=== PATIENT | female | born 1935 | race Caucasian/White ===

== ENCOUNTER → 2016-06-16 | Outpatient (CLI) | payer MEDICARE, BC | LOC: MW.CHORTHO 08:00 | PROVIDERS: ATTEND Physician Assistant | DX: M75.42 Impingement syndrome of left shoulder (principal); M25.512 Pain in left shoulder | CPT/HCPCS: 20610; G0463; J1040 ==

== ENCOUNTER 2017-06-15 10:23 | Day surgery (SDC) | payer MEDICARE, BC ==
[~2017-06-15 10:23] MED LIST: Lactated Ringers 1,000 ML IV SCH; Lidocaine 2% 5 ML SDV ONE; Propofol 200 MG/20 ML SDV ONE; Sodium Chloride 0.9% 10 ML Syringe FLUSH PRN; Sodium Chloride 0.9% 2.5 ML Syringe FLUSH PRN
[2017-06-15] MEDS ORDERED: Scopolamine 1.5 MG Transdermal Patch TRDERM PRN ×2 (10:50→11:00)
[2017-06-15] MEDS ORDERED: Scopolamine 1.5 MG Transdermal Patch ONE (10:52)
--- NOTE | 2017-06-15 11:00 | PCM.PREANE ---
Preanesthetic Assessment - Anesthesia/Transfusion/Family Hx Anesthesia History: Prior Anesthesia Without Reaction Other Type of Anesthesia Reaction Comment: "hallucinations after last knee surgery" Family History of Anesthesia Reaction: No Transfusion History: Prior Transfusion Without Reaction Intubation History: Unknown - Review of Systems General: No Symptoms Pulmonary: No Symptoms Cardiovascular: No Symptoms Gastrointestinal: Abdominal Pain, Other (incontinance) Neurological: No Symptoms Other: Reports: None - Physical Assessment O2 Sat by Pulse Oximetry: 95 Respiratory Rate: 16 Vital Signs: Last Vital Signs Temp 36.6 C 06/15/17 10:39 Pulse 110 H 06/15/17 10:39 Resp 16 06/15/17 10:39 BP 137/83 06/15/17 10:39 Pulse Ox 95 06/15/17 10:39 Height: 1.75 m Weight: 84.822 kg ASA Class: 3 Mental Status: Alert & Oriented x3 Airway Class: Mallampati = 2 Dentition: Reports: Normal Dentition (overbite) Thyro-Mental Finger Breadths: 2 Mouth Opening Finger Breadths: 2 ROM/Head Extension: Limited/Partial Lungs: Clear to Auscultation, Normal Respiratory Effort Cardiovascular: Regular Rate (tachicardic ), Irregular Rhythm - Allergies Allergies/Adverse Reactions: Allergies Allergy/AdvReac Type Severity Reaction Status Date / Time oxycodone Allergy Stomach Verified 06/10/17 10:03 Upset perfumes Allergy Headache Uncoded 09/15/14 05:52 - Blood Blood Available: No - Anesthesia Plan Pre-Op Medication Ordered: None - Acknowledgements Anesthesia Type Planned: MAC Pt an Appropriate Candidate for the Planned Anesthesia: Yes Alternatives and Risks of Anesthesia Discussed w Pt/Guardian: Yes Pt/Guardian Understands and Agrees with Anesthesia Plan: Yes PreAnesthesia Questionnaire HEENT History: Reports: Macular Degeneration Other HEENT History: wears glasses, rt hearing aid Cardiovascular History: Reports: Afib, High Cholesterol, Hypertension Gastrointestinal History: Reports: Hemorrhoids Genitourinary History: Reports: None 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: Musculoskeletal History: Reports: Arthritis, Back Pain, Chronic Other Musculoskeletal History: rt shoulder pain, steroid injections in tail bone and shoulder Neurological History: Reports: Neuropathy, Diabetic Endocrine/Metabolic History: Reports: Diabetes, Type II Hematologic History: Reports: Blood Transfusion(s) Other Hematologic History: hx of blood transfusion with hysterectomy - Past Surgical History Head Surgeries/Procedures: Reports: None HEENT Surgical History: Reports: Cataract Surgery, Tonsillectomy Other HEENT Surgeries/Procedures: Bilateral cataract extraction with Lens implants GI Surgical History: Reports: Appendectomy, Cholecystectomy, Colonoscopy Female Surgical History: Reports: Hysterectomy, Salpingo-Oophorectomy, Tubal Ligation Other Female Surgeries/Procedures: Hysterectomy, 2nd surgery few years later taking Fallopian tubes and ovaries Other Neurological Surgeries/Procedures: hx spurs removed from vertebrae Musculoskeletal Surgical History: Reports: Knee Replacement Other Musculoskeletal Surgeries/Procedures:: both knees replacement - SUBSTANCE USE Smoking Status *Q: Never Smoker Tobacco Use Within Last Twelve Months: No Second Hand Smoke Exposure: No Recreational Drug Use History: No - HOME MEDS Home Medications: Home Meds Nateglinide 120 mg PO TIDAC 08/30/14 [History] atorvaSTATin [Lipitor] 40 mg PO BEDTIME 08/30/14 [History] metFORMIN HCl [Metformin HCl ER] 3 tab PO PCBREAKFAST 08/30/14 [History] Acetaminophen [Tylenol Extra Strength] 500 mg PO Q8H PRN 10/19/14 [History] Diltiazem [Cardizem CD] 240 mg PO BRK #30 cap.cd 10/20/14 [Rx] Cyanocobalamin (Vitamin B-12) [Vitamin B-12] 1,000 mcg PO BID 06/10/17 [History] Fish Oil/DHA/EPA [Fish Oil 1,200 MG] 1 tab PO BID 06/10/17 [History] Gabapentin [Neurontin] 300 mg PO TID 06/10/17 [History] Guar Gum [Benefiber] 2 tsp PO BID 06/10/17 [History] Hydrocortisone [Proctosol-HC] 1 applic RECTAL ASDIRECTED PRN 06/10/17 [History] Lidocaine 2% [Xylocaine 2%] 1 applic RECTAL BID PRN 06/10/17 [History] Losartan Potassium 25 mg PO DAILY 06/10/17 [History] Polyethylene Glycol 3350 [Miralax] 1 capful PO BEDTIME 06/10/17 [History] Rivaroxaban [Xarelto] 15 mg PO BEDTIME 06/10/17 [History] Vit A/Vit C/Vit E/Zinc/Copper [Preservision] 1 tab PO BID 06/10/17 [History] aMILoride/Hydrochlorothiazide [Amiloride-HCTZ 5-50 MG] 0.5 tab PO DAILY [History] traZODone HCl [Trazodone HCl] 2 tab PO BEDTIME 06/10/17 [History] - CURRENT (IN HOUSE) MEDS Current Meds: Current Medications Lactated Ringer's (Ringers, Lactated) 1,000 mls @ 125 mls/hr IV ASDIRECTED WILFREDO Last Admin: 06/15/17 10:41 Dose: 125 mls/hr Scopolamine (Transderm-Scop) 1.5 mg TRDERM Q72H PRN PRN Reason: Nausea Sodium Chloride (Saline Flush) 10 ml FLUSH ASDIRECTED PRN PRN Reason: Keep Vein Open Sodium Chloride (Saline Flush) 2.5 ml FLUSH ASDIRECTED PRN PRN Reason: Keep Vein Open Sodium Chloride (Saline Flush) 10 ml FLUSH ASDIRECTED PRN PRN Reason: Keep Vein Open Sodium Chloride (Saline Flush) 2.5 ml FLUSH ASDIRECTED PRN PRN Reason: Keep Vein Open Discontinued Medications Lidocaine (Xylocaine-Mpf 2%) Confirm Administered Dose 5 ml .ROUTE .STK-MED ONE Stop: 06/15/17 07:29 Propofol (Diprivan 20 Ml) Confirm Administered Dose 400 mg .ROUTE .STK-MED ONE Stop: 06/15/17 07:29
--- NOTE | 2017-06-15 11:38 | PCM.OPNOTE ---
- General Post-Op/Procedure Note Date of Surgery/Procedure: 06/15/17 Operative Procedure(s): diagnostic colonoscopy Findings: Severe sigmoid diverticulosis Pre Op Diagnosis: Tenesmus, change in bowel habits Post-Op Diagnosis: severe sigmoid diverticulosis Anesthesia Technique: ZANA Primary Surgeon: Shelia Reyes Bilingual Trainer: Madan Wood Complications: None Condition: Good
[2017-06-15 11:54] VITALS: BP 102/62
--- NOTE | 2017-06-15 12:01 | PCM48HPAN ---
Post Anesthesia Note - EVALUATION WITHIN 48HRS OF ANESTHETIC Vital Signs in Normal Range: Yes Patient Participated in Evaluation: Yes Respiratory Function Stable: Yes Airway Patent: Yes Cardiovascular Function Stable: Yes Hydration Status Stable: Yes Pain Control Satisfactory: Yes Nausea and Vomiting Control Satisfactory: Yes Mental Status Recovered: Yes Resp Rate: 14
--- NOTE | 2017-06-15 13:56 | OR ---
SURGEON: DANNY CARY MD DATE OF PROCEDURE: 06/15/2017 PREOPERATIVE DIAGNOSIS: Change in bowel habits. POSTOPERATIVE DIAGNOSIS: Diverticulosis. PROCEDURE PERFORMED: Diagnostic colonoscopy. MICROBIOLOGY LABORATORY MANAGER: Dr. Madan Wood, resident. ANESTHESIA: MAC. INSTRUMENT USED: Olympus colonoscope. EXTENT OF EXAM: To the cecum. PREPARATION: Good. LIMITATIONS: Floppy redundant colon. INDICATIONS: The patient is an 81-year-old female, who presents with a change in her bowel habits. She complains of bright red bleeding in her stool, constipation, stool leakage as well as tenesmus. The decision was made to perform a diagnostic colonoscopy. The patient and I discussed the procedure, expected perioperative course, and risks including bleeding, infection, or damage to surrounding structures, including perforation. The patient verbalized understanding and wishes to proceed. PROCEDURE IN DETAIL: The patient was brought to the endoscopy suite and placed in a left lateral decubitus position. A time-out was completed verifying the patient's name, age, date of , allergies, and procedure to be performed. Monitored anesthesia care was induced and continuous oxygen was provided via nasal cannula throughout the procedure. After adequate sedation was achieved, a thorough exam of the anoderm was performed. I did not see any evidence of an anal fissure. The patient did have a small external hemorrhoid. Digital rectal exam was performed, which was within normal limits. A well lubricated colonoscope was inserted in the rectum and advanced under direct visualization to the level of cecum. The cecum was identified by both visual and anatomic landmarks. A photograph was taken of the cecal cap. I was unable to retroflex the scope within the cecum due to the patient having a very redundant and floppy colon. Because of this, she had a large amount of looping proximally. The scope was then fully withdrawn while examining the color, texture, anatomy, and integrity of the mucosa from the cecum to the anal canal. This was somewhat difficult, given the fact the colon did not stay insufflated and kept trying to collapse around my scope. I instilled a large amount of irrigant into the colon, which gave me the distention I needed to carefully inspect the lining of the colonic mucosa. The patient was noted to have [id number] diverticulosis within the sigmoid colon. There was no evidence of any polyps or masses in the colon. The scope was brought into the rectum and retroflexed to allow visualization of the anal canal opening. This appeared normal. A photograph was taken. The scope was then straightened out and removed from the patient. The cecum to anus time was 12 minutes. The patient tolerated the procedure well and was taken to the PACU in stable condition. ENDOSCOPIC DIAGNOSIS: Diverticulosis. RECOMMENDATION: We will start the patient on a regimented fiber supplement and visit with her in clinic in 2 weeks. VASYL ART /[id number]
== END 2017-06-15 12:00 | disposition home or self-care (01) ==
LOC: MW.SDS 10:23
PROVIDERS: ATTEND Surgery
DX: K57.30 Diverticulosis of large intestine without perforation or abscess without bleeding (principal); K64.4 Residual hemorrhoidal skin tags; E11.9 Type 2 diabetes mellitus without complications; I10 Essential (primary) hypertension; E78.00 Pure hypercholesterolemia, unspecified; Z88.8 Allergy status to other drugs, medicaments and biological substances; Z79.899 Other long term (current) drug therapy; Z87.891 Personal history of nicotine dependence
CPT/HCPCS: 45378; 82962; A9270; J7120; J2704

== ENCOUNTER 2017-10-05 07:51 | Day surgery (SDC) | payer MEDICARE, BC ==
[~2017-10-05 07:51] MED LIST changes: +Bupivacaine 0.5% 30 ML SDV ONE; +Gelatin Sponge,Absorbable 12-7 mm Sponge TOP ONE; -Lidocaine 2% 5 ML SDV ONE; +Lidocaine 2% Jelly 30 ML Tube ONE; -Propofol 200 MG/20 ML SDV ONE; +cefOXitin 2 GM in Premix Bag 1 BAG IV ONE
[2017-10-05] MEDS ORDERED: Propofol 200 MG/20 ML SDV ONE ×2 (08:00→09:55)
[2017-10-05] MEDS ORDERED: Ondansetron 4 MG/2 ML SDV ONE (08:00)
[2017-10-05] MEDS ORDERED: Lidocaine 2% 5 ML SDV ONE (08:00)
[2017-10-05] MEDS ORDERED: Midazolam 1 MG/ML 2 ML SDV ONE (08:01)
[2017-10-05] MEDS ORDERED: fentaNYL 250 MCG/5 ML SDV ONE (08:01)
[2017-10-05] MEDS ORDERED: Scopolamine 1.5 MG Transdermal Patch TRDERM PRN (08:36)
--- NOTE | 2017-10-05 08:36 | PCM.PREANE ---
Preanesthetic Assessment - Anesthesia/Transfusion/Family Hx Anesthesia History: Prior Anesthesia Reaction (PONV and post op delerium after TKA (she attributes to Fentanyl)) Other Type of Anesthesia Reaction Comment: "hallucinations after last knee surgery" Family History of Anesthesia Reaction: No Transfusion History: Prior Transfusion Without Reaction Intubation History: Unknown - Review of Systems General: No Symptoms Pulmonary: No Symptoms Cardiovascular: No Symptoms Gastrointestinal: No Symptoms Neurological: No Symptoms Other: Reports: None - Physical Assessment NPO Status Date: 10/04/17 O2 Sat by Pulse Oximetry: 94 Respiratory Rate: 16 Vital Signs: Last Vital Signs Temp 36.2 C 10/05/17 08:32 Pulse 104 H 10/05/17 08:32 Resp 16 10/05/17 08:32 BP 119/88 10/05/17 08:32 Pulse Ox 94 L 10/05/17 08:32 Height: 1.75 m Weight: 80.286 kg ASA Class: 3 Airway Class: Mallampati = 2 Dentition: Reports: Normal Dentition ROM/Head Extension: Full Lungs: Clear to Auscultation, Normal Respiratory Effort Cardiovascular: Regular Rate, Regular Rhythm - Lab Values: Laboratory Last Values POC Glucose 115 mg/dL (60-110) H 10/05/17 08:25 - Allergies Allergies/Adverse Reactions: Allergies Allergy/AdvReac Type Severity Reaction Status Date / Time fentanyl Allergy Hallucinati Verified 10/05/17 08:13 ons oxycodone Allergy Stomach Verified 09/29/17 08:28 Upset perfumes Allergy Headache Uncoded 09/15/14 05:52 - Anesthesia Plan Pre-Op Medication Ordered: Other (scop patch per pt request) - Acknowledgements Anesthesia Type Planned: General Anesthesia Pt an Appropriate Candidate for the Planned Anesthesia: Yes Alternatives and Risks of Anesthesia Discussed w Pt/Guardian: Yes Pt/Guardian Understands and Agrees with Anesthesia Plan: Yes Additional Comments: Pt requests NO FENTANYL PreAnesthesia Questionnaire HEENT History: Reports: Macular Degeneration Other HEENT History: wears glasses, rt hearing aid, "slow dry macular degeneration" Cardiovascular History: Reports: Afib, High Cholesterol, Hypertension Gastrointestinal History: Reports: Hemorrhoids Genitourinary History: Reports: None 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: Musculoskeletal History: Reports: Arthritis, Back Pain, Chronic Other Musculoskeletal History: rt shoulder pain, steroid injections in tail bone and shoulder Neurological History: Reports: Neuropathy, Diabetic Endocrine/Metabolic History: Reports: Diabetes, Type II Hematologic History: Reports: Anticoagulation Therapy, Blood Transfusion(s) Other Hematologic History: hx of blood transfusion with hysterectomy - Past Surgical History Head Surgeries/Procedures: Reports: None HEENT Surgical History: Reports: Adenoidectomy, Cataract Surgery, Tonsillectomy Other HEENT Surgeries/Procedures: Bilateral cataract extraction with Lens implants GI Surgical History: Reports: Appendectomy, Cholecystectomy, Colonoscopy Female Surgical History: Reports: Hysterectomy, Salpingo-Oophorectomy, Tubal Ligation Other Female Surgeries/Procedures: Hysterectomy, 2nd surgery few years later taking Fallopian tubes and ovaries Other Neurological Surgeries/Procedures: hx spurs removed from vertebrae Musculoskeletal Surgical History: Reports: Knee Replacement Other Musculoskeletal Surgeries/Procedures:: both knees replacement - SUBSTANCE USE Smoking Status *Q: Never Smoker Recreational Drug Use History: No - HOME MEDS Home Medications: Home Meds Nateglinide 120 mg PO TIDAC 08/30/14 [History] atorvaSTATin [Lipitor] 20 mg PO BEDTIME 08/30/14 [History] metFORMIN HCl [Metformin HCl ER] 3 tab PO PCBREAKFAST 08/30/14 [History] Acetaminophen [Tylenol Extra Strength] 500 mg PO Q8H PRN 10/19/14 [History] Diltiazem [Cardizem CD] 240 mg PO BRK #30 cap.cd 10/20/14 [Rx] Cyanocobalamin (Vitamin B-12) [Vitamin B-12] 1,000 mcg PO BID 06/10/17 [History] Fish Oil/DHA/EPA [Fish Oil 1,200 MG] 2 tab PO BID 06/10/17 [History] Gabapentin [Neurontin] 3 tab PO TID 06/10/17 [History] Lidocaine 2% [Xylocaine 2%] 1 applic RECTAL BID PRN 06/10/17 [History] Losartan Potassium 25 mg PO DAILY 06/10/17 [History] Polyethylene Glycol 3350 [Miralax] 1 capful PO BEDTIME 06/10/17 [History] Rivaroxaban [Xarelto] 15 mg PO ASDIRECTED 06/10/17 [History] Vit A/Vit C/Vit E/Zinc/Copper [Preservision] 1 tab PO BID 06/10/17 [History] aMILoride/Hydrochlorothiazide [Amiloride-HCTZ 5-50 MG] 0.5 tab PO DAILY [History] traZODone HCl [Trazodone HCl] 1.5 tab PO BEDTIME 06/10/17 [History] - CURRENT (IN HOUSE) MEDS Current Meds: Current Medications Lactated Ringer's (Ringers, Lactated) 1,000 mls @ 125 mls/hr IV ASDIRECTED WILFREDO Sodium Chloride (Saline Flush) 10 ml FLUSH ASDIRECTED PRN PRN Reason: Keep Vein Open Sodium Chloride (Saline Flush) 2.5 ml FLUSH ASDIRECTED PRN PRN Reason: Keep Vein Open Discontinued Medications Bupivacaine HCl (Marcaine 0.5%) Confirm Administered Dose 30 ml .ROUTE .STK-MED ONE Stop: 10/05/17 07:20 Fentanyl (Sublimaze) Confirm Administered Dose 250 mcg .ROUTE .STK-MED ONE Stop: 10/05/17 08:02 Gelatin (Gelfoam 12-7 Mm) Confirm Administered Dose 1 each TOP .STK-MED ONE Stop: 10/05/17 07:20 Cefoxitin Sodium 2 gm/ Premix 50 mls @ 100 mls/hr IV ONETIME ONE Stop: 10/04/17 10:01 Lidocaine (Xylocaine-Mpf 2%) Confirm Administered Dose 5 ml .ROUTE .STK-MED ONE Stop: 10/05/17 08:01 Lidocaine HCl (Xylocaine 2% Jelly) Confirm Administered Dose 30 ml .ROUTE .STK- MED ONE Stop: 10/05/17 07:20 Midazolam HCl (Versed 1 Mg/Ml) Confirm Administered Dose 2 mg .ROUTE .STK-MED ONE Stop: 10/05/17 08:02 Ondansetron HCl (Zofran) Confirm Administered Dose 4 mg .ROUTE .STK-MED ONE Stop: 10/05/17 08:01 Propofol (Diprivan 20 Ml) Confirm Administered Dose 200 mg .ROUTE .STK-MED ONE Stop: 10/05/17 08:01
[2017-10-05] MEDS ORDERED: Meperidine PF 25 MG/ML Syringe ONE (09:17)
[2017-10-05] MEDS ORDERED: cefOXitin 1 GM Vial ONE (09:48)
[2017-10-05] MEDS ORDERED: Sodium Chloride 0.9% 20 ML ONE (09:48)
--- NOTE | 2017-10-05 10:32 | PCM.OPNOTE ---
- General Post-Op/Procedure Note Date of Surgery/Procedure: 10/05/17 Operative Procedure(s): Hemorrhoidectomy Findings: Grade 4 prolapsed right posterior and left lateral hemorrhoidal columns Pre Op Diagnosis: Grade 4 hemorrhoids Post-Op Diagnosis: same Anesthesia Technique: General LMA Primary Surgeon: Shelia Reyes Fluid Replacement, Intraop: 1,100 EBL in mLs: 10 Condition: Good
--- NOTE | 2017-10-05 10:52 | PCM.POSTAN ---
POST ANESTHESIA ASSESSMENT - MENTAL STATUS Mental Status: Alert, Oriented - RESPIRATORY Respiratory Status: Respiratory Rate WNL, Airway Patent, O2 Saturation Stable - CARDIOVASCULAR CV Status: Pulse Rate WNL, Blood Pressure Stable - GASTROINTESTINAL GI Status: No Symptoms - POST OP HYDRATION Hydration Status: Adequate & Stable
--- NOTE | 2017-10-05 11:19 | PCM48HPAN ---
Post Anesthesia Note - EVALUATION WITHIN 48HRS OF ANESTHETIC Vital Signs in Normal Range: Yes Patient Participated in Evaluation: Yes Respiratory Function Stable: Yes Airway Patent: Yes Cardiovascular Function Stable: Yes Hydration Status Stable: Yes Pain Control Satisfactory: Yes Nausea and Vomiting Control Satisfactory: Yes Mental Status Recovered: Yes Resp Rate: 13
--- NOTE | 2017-10-05 11:32 | OR ---
SURGEON: DANNY CARY MD DATE OF PROCEDURE: 10/05/2017 PREOPERATIVE DIAGNOSIS: Grade 4 hemorrhoids. POSTOPERATIVE DIAGNOSIS: Grade 4 hemorrhoids. PROCEDURE PERFORMED: Two-column hemorrhoidectomy. ANESTHESIA: General LMA. FLUIDS: 1100 mL crystalloid. ESTIMATED BLOOD LOSS: 10 mL. FINDINGS: Grade 4 hemorrhoids. Right posterior and left lateral columns excised. COMPLICATIONS: None. INDICATIONS: The patient is an 82-year-old female who I recently did a colonoscopy on for change in bowel habits. The patient was noted to have hemorrhoidal disease. We attempted conservative management with increased fiber and different over-the- counter medications, but the patient is having difficulty keeping herself clean down below secondary to her hemorrhoids. The decision was made to proceed with a hemorrhoidectomy. The patient and I discussed the procedure. We discussed the expected perioperative course. We discussed the risks including bleeding, infection, or damage to surrounding structures, which could result in alteration of continence. The patient verbalized understanding and wishes to proceed. PROCEDURE IN DETAIL: The patient was brought in to the operating room and kept on the operating room cart. A time-out was completed verifying the patient's name, age, date of , allergies, and procedure to be performed. General LMA anesthesia was induced. The patient was then placed onto the operating room table in the left lateral decubitus position. All bony prominences were appropriately padded and the patient was secured to the table. The buttocks were prepped and draped in the usual standard fashion. I performed a digital rectal exam. This revealed a prolapsing right posterior hemorrhoidal column and left lateral hemorrhoidal column. The decision was made to remove these. The remainder of the digital rectal exam was normal. I anesthetized the anoderm circumferentially with 0.5% Marcaine plain. I then placed a speculum into the anal canal and inspected the mucosa. No other findings were noted. I first turned my attention to the right posterior hemorrhoidal column. It was grasped with an Allis and elevated. Using needle-tip cautery, I excised the hemorrhoidal tissue in a henrique-shaped fashion. Pin point cautery was used to control bleeding. A 2-0 chromic suture was then used to close the mucosal defect. It was run from proximal to distal. I used a running locking stitch along the anal canal and transitioned to a simple stitch on the anoderm. I then whip stitched it back upon itself and tied it to my initial knot. A small superficial skin tear was made along the posterior anoderm. This was closed with running 2-0 chromic. I then turned my attention to the left lateral hemorrhoidal column. This was grasped with an Allis clamp and elevated to lift the hemorrhoidal tissue off the surrounding tissue. It was excised using a needle-tip cautery. It was closed with a running 2-0 chromic stitch. A running locking stitch was used on the anal canal mucosa and transitioned to a simple stitch on the anoderm. This was then whip stitched back upon itself and tied at the apex. Pressure was then held for approximately 1 minute. I inspected my suture lines. Everything appeared to be hemostatic. I repeated my digital rectal exam and everything appeared normal. 4 x 4 fluffs were then placed over the wound and mesh underwear used to secure them. The patient was then awoken and moved onto the OR cart in a supine position. The patient tolerated the procedure well and was taken to PACU in stable condition. VASYL ART /[id number]
[2017-10-05 13:20] VITALS: BP 116/60
== END 2017-10-05 12:05 | disposition home or self-care (01) ==
LOC: MW.SDS 07:51
PROVIDERS: ATTEND Surgery
DX: K64.3 Fourth degree hemorrhoids (principal); I10 Essential (primary) hypertension; E11.9 Type 2 diabetes mellitus without complications; E78.00 Pure hypercholesterolemia, unspecified; Z87.891 Personal history of nicotine dependence; Z79.84 Long term (current) use of oral hypoglycemic drugs; Z79.899 Other long term (current) drug therapy; Z88.5 Allergy status to narcotic agent
CPT/HCPCS: 46260; 82962; 88304; A9270; J0694; J2175; J2250; J2704; J3490; J7120; J2405; J3010

== ENCOUNTER 2018-07-01 09:50 | Emergency (ER) | payer BC, MEDICARE ==
--- NOTE | 2018-07-01 09:54 | EDM.PDOC ---
ED HPI GENERAL MEDICAL PROBLEM - General Chief Complaint: ENT Problem Stated Complaint: nose bleed Time Seen by Provider: 07/01/18 09:53 Source of Information: Reports: Patient - History of Present Illness INITIAL COMMENTS - FREE TEXT/NARRATIVE: HISTORY AND PHYSICAL: History of present illness: [Patient comes or alcohol for atrial fibrillation presents with epistaxis the left nares, appears to be an anterior bleed that has been bleeding for 20 minutes to arrival Bleeding did slow with a cold pack and pressure, lesion appeared to be anterior along the septum as well as lateral on the nares using blood, and was able to cauterize this with resolution for now No fever nausea vomiting chills sweats no chest pain shortness breath headache dizziness palpitation no bowel or urine symptoms ] Review of systems: As per history of present illness and below otherwise all systems reviewed and negative. Past medical history: As per history of present illness and as reviewed below otherwise noncontributory. Surgical history: As per history of present illness and as reviewed below otherwise noncontributory. Social history: No reported history of drug or alcohol abuse. Family history: As per history of present illness and as reviewed below otherwise noncontributory. Physical exam: HEENT: Atraumatic, normocephalic, pupils reactive, negative for conjunctival pallor or scleral icterus, mucous membranes moist, throat clear, neck supple, nontender, trachea midline. Epistaxis as described above Lungs: Clear to auscultation, breath sounds equal bilaterally, chest nontender. Heart: S1S2, regular, negative for clicks, rubs, or JVD. Abdomen: Soft, nondistended, nontender. Negative for masses or hepatosplenomegaly. Negative for costovertebral tenderness. Pelvis: Stable nontender. Genitourinary: Deferred. Rectal: Deferred. Extremities: Atraumatic, negative for cords or calf pain. Neurovascular unremarkable. Neuro: Awake, alert, oriented. Cranial nerves II through XII unremarkable. Cerebellum unremarkable. Motor and sensory unremarkable throughout. Exam nonfocal. Diagnostics: [CBC, INR ] Therapeutics: []Cautery with silver nitrate Impression: [Epistaxis]-resolved Definitive disposition and diagnosis as appropriate pending reevaluation and review of above. - Related Data Allergies Allergy/AdvReac Type Severity Reaction Status Date / Time fentanyl Allergy Hallucinati Verified 07/01/18 09:55 ons oxycodone Allergy Stomach Verified 07/01/18 09:55 Upset perfumes Allergy Headache Uncoded 07/01/18 09:55 Home Meds: Home Meds Nateglinide 120 mg PO TIDAC 08/30/14 [History] atorvaSTATin [Lipitor] 0.5 mg PO BEDTIME 08/30/14 [History] metFORMIN HCl [Metformin ER Osmotic] 3 tab PO PCBREAKFAST 08/30/14 [History] Diltiazem [Cardizem CD] 240 mg PO BRK #30 cap.cd 10/20/14 [Rx] Fish Oil/DHA/EPA [Fish Oil 1,200 MG] 2 tab PO BID 06/10/17 [History] Gabapentin [Neurontin] 3 tab PO TID 06/10/17 [History] Losartan Potassium 25 mg PO DAILY 06/10/17 [History] Polyethylene Glycol 3350 [Miralax] 1 capful PO BEDTIME 06/10/17 [History] aMILoride/Hydrochlorothiazide [Amiloride-HCTZ 5-50 MG] 0.5 tab PO DAILY [History] traZODone HCl [Trazodone HCl] 2.5 tab PO BEDTIME 06/10/17 [History] Cyanocobalamin (Vitamin B-12) [Vitamin B-12] 1,000 mcg PO BID 10/05/17 [History] Lidocaine 5% 35.44 gm .XX Q2H PRN #1 tube 10/05/17 [Rx] Vit A/Vit C/Vit E/Zinc/Copper [Preservision] 1 tab PO BID 10/05/17 [History] Past Medical History HEENT History: Reports: Macular Degeneration Other HEENT History: wears glasses, rt hearing aid, "slow dry macular degeneration" Cardiovascular History: Reports: Afib, High Cholesterol, Hypertension Gastrointestinal History: Reports: Hemorrhoids Genitourinary History: Reports: None [employer]ET [employer]PA[employer] HEL[employer] History: Reports: Musculoskeletal History: Reports: Arthritis, Back Pain, Chronic Other Musculoskeletal History: rt shoulder pain, steroid injections in tail bone and shoulder Neurological History: Reports: Neuropathy, Diabetic Endocrine/Metabolic History: Reports: Diabetes, Type II Hematologic History: Reports: Anticoagulation Therapy, Blood Transfusion(s) Other Hematologic History: hx of blood transfusion with hysterectomy - Past Surgical History Head Surgeries/Procedures: Reports: None HEENT Surgical History: Reports: Adenoidectomy, Cataract Surgery, Tonsillectomy Other HEENT Surgeries/Procedures: Bilateral cataract extraction with Lens implants GI Surgical History: Reports: Appendectomy, Cholecystectomy, Colonoscopy Female Surgical History: Reports: Hysterectomy, Salpingo-Oophorectomy, Tubal Ligation Other Female Surgeries/Procedures: Hysterectomy, 2nd surgery few years later taking Fallopian tubes and ovaries Other Neurological Surgeries/Procedures: hx spurs removed from vertebrae Musculoskeletal Surgical History: Reports: Knee Replacement Other Musculoskeletal Surgeries/Procedures:: both knees replacement ED ROS GENERAL - Review of Systems Review Of Systems: See Below ED EXAM, GENERAL - Physical Exam Exam: See Below Course - Vital Signs Last Recorded V/S: Last Vital Signs Temp 96.2 F 07/01/18 09:51 Pulse 127 H 07/01/18 09:51 Resp 18 07/01/18 09:51 BP 138/78 07/01/18 09:51 Pulse Ox 96 07/01/18 09:51 - Orders/Labs/Meds Labs: Laboratory Tests 07/01/18 07/01/18 Range/Units 09:58 09:58 WBC 5.02 (4.0-11.0) K/uL RBC 4.43 (4.30-5.90) M/uL Hgb 13.0 (12.0-16.0) g/dL Hct 38.6 (36.0-46.0) % MCV 87.1 (80.0-98.0) fL MCH 29.3 (27.0-32.0) pg MCHC 33.7 (31.0-37.0) g/dL RDW Std Deviation 48.6 (28.0-62.0) fl RDW Coeff of Yonas 15 (11.0-15.0) % Plt Count 173 (150-400) K/uL MPV 11.10 (7.40-12.00) fL Neut % (Auto) 68.3 (48.0-80.0) % Lymph % (Auto) 21.5 (16.0-40.0) % [place] % (Auto) 7.8 (0.0-15.0) % Eos % (Auto) 2.0 (0.0-7.0) % Baso % (Auto) 0.4 (0.0-1.5) % Neut # (Auto) 3.4 (1.4-5.7) K/uL Lymph # (Auto) 1.1 (0.6-2.4) K/uL [place] # (Auto) 0.4 (0.0-0.8) K/uL Eos # (Auto) 0.1 (0.0-0.7) K/uL Baso # (Auto) 0.0 (0.0-0.1) K/uL Nucleated RBC % 0.0 /100WBC Nucleated RBCs # 0 K/uL INR 1.07 Departure - Departure Time of Disposition: 10:50 Disposition: Home, Self-Care 01 Condition: Good Clinical Impression: Epistaxis - Discharge Information Forms: ED Department Discharge Additional Instructions: The following information is given to patients seen in the emergency department who are being discharged to home. This information is to outline your options for follow-up care. We provide all patients seen in our emergency department with a follow-up referral. The need for follow-up, as well as the timing and circumstances, are variable depending upon the specifics of your emergency department visit. If you don't have a primary care physician on staff, we will provide you with a referral. We always advise you to contact your personal physician following an emergency department visit to inform them of the circumstance of the visit and for follow-up with them and/or the need for any referrals to a consulting specialist. The emergency department will also refer you to a specialist when appropriate. This referral assures that you have the opportunity for follow-up care with a specialist. All of these measure are taken in an effort to provide you with optimal care, which includes your follow-up. Under all circumstances we always encourage you to contact your private physician who remains a resource for coordinating your care. When calling for follow-up care, please make the office aware that this follow-up is from your recent emergency room visit. If for any reason you are refused follow-up, please contact the [facility] emergency department at and asked to speak to the emergency department charge nurse.
[2018-07-01 11:02] VITALS: BP 108/67
== END 2018-07-01 11:02 | disposition home or self-care (01) ==
LOC: MW.ED 09:50
DX: R04.0 Epistaxis (principal); I10 Essential (primary) hypertension; E78.00 Pure hypercholesterolemia, unspecified; E11.40 Type 2 diabetes mellitus with diabetic neuropathy, unspecified; I48.91 Unspecified atrial fibrillation; Z79.01 Long term (current) use of anticoagulants; Z79.899 Other long term (current) drug therapy; Z79.84 Long term (current) use of oral hypoglycemic drugs; Z88.6 Allergy status to analgesic agent; Z91.09 Other allergy status, other than to drugs and biological substances; Z88.8 Allergy status to other drugs, medicaments and biological substances
CPT/HCPCS: 30901; 36415; 85025; 85610; 99282; 99283

== ENCOUNTER 2018-07-24 23:13 | Emergency (ER) | payer MEDICARE, BC ==
--- NOTE | 2018-07-24 23:44 | EDM.PDOC ---
ED HPI GENERAL MEDICAL PROBLEM - General Chief Complaint: ENT Problem Stated Complaint: NOSE BLEED Time Seen by Provider: 07/24/18 23:43 Source of Information: Reports: Patient - History of Present Illness INITIAL COMMENTS - FREE TEXT/NARRATIVE: HISTORY AND PHYSICAL: History of present illness: [Patient comes or alcohol presents with epistaxis, she scratched the inside of her nose bleeding has persisted for 2 hours, initially with compression and ice pack bleeding did slow and was able, cauterize some of the very anterior bleeding however she sneezed and heavy blood flow resumed, unable to determine the source of the bleed no further cautery was attempted Did place balloon desire device anterior posterior with 5 mL of air Resolution of the bleeding location no complaint ] Review of systems: As per history of present illness and below otherwise all systems reviewed and negative. Past medical history: As per history of present illness and as reviewed below otherwise noncontributory. Surgical history: As per history of present illness and as reviewed below otherwise noncontributory. Social history: No reported history of drug or alcohol abuse. Family history: As per history of present illness and as reviewed below otherwise noncontributory. Physical exam: HEENT: Atraumatic, normocephalic, pupils reactive, negative for conjunctival pallor or scleral icterus, mucous membranes moist, throat clear, neck supple, nontender, trachea midline. epistaxis left Nairn noted Lungs: Clear to auscultation, breath sounds equal bilaterally, chest nontender. Heart: S1S2, regular, negative for clicks, rubs, or JVD. Abdomen: Soft, nondistended, nontender. Negative for masses or hepatosplenomegaly. Negative for costovertebral tenderness. Pelvis: Stable nontender. Genitourinary: Deferred. Rectal: Deferred. Extremities: Atraumatic, negative for cords or calf pain. Neurovascular unremarkable. Neuro: Awake, alert, oriented. Cranial nerves II through XII unremarkable. Cerebellum unremarkable. Motor and sensory unremarkable throughout. Exam nonfocal. Diagnostics: [Clinical ] Therapeutics: [ silver nitrate cautery of anterior bleeding Ultimately nasal balloon device applied 5 mL inflation ] Return tomorrow afternoon/evening for removal and continued management Impression: [ epistaxis sounds are well ] Definitive disposition and diagnosis as appropriate pending reevaluation and review of above. - Related Data Allergies Allergy/AdvReac Type Severity Reaction Status Date / Time fentanyl Allergy Hallucinati Verified 07/24/18 23:34 ons oxycodone Allergy Stomach Verified 07/24/18 23:34 Upset perfumes Allergy Headache Uncoded 07/24/18 23:34 Home Meds: Home Meds Nateglinide 120 mg PO TIDAC 08/30/14 [History] atorvaSTATin [Lipitor] 0.5 mg PO BEDTIME 08/30/14 [History] metFORMIN HCl [Metformin ER Osmotic] 3 tab PO PCBREAKFAST 08/30/14 [History] Diltiazem [Cardizem CD] 240 mg PO BRK #30 cap.cd 10/20/14 [Rx] Fish Oil/DHA/EPA [Fish Oil 1,200 MG] 2 tab PO BID 06/10/17 [History] Gabapentin [Neurontin] 3 tab PO TID 06/10/17 [History] Losartan Potassium 25 mg PO DAILY 06/10/17 [History] Polyethylene Glycol 3350 [Miralax] 1 capful PO BEDTIME 06/10/17 [History] aMILoride/Hydrochlorothiazide [Amiloride-HCTZ 5-50 MG] 0.5 tab PO DAILY [History] traZODone HCl [Trazodone HCl] 2.5 tab PO BEDTIME 06/10/17 [History] Cyanocobalamin (Vitamin B-12) [Vitamin B-12] 1,000 mcg PO BID 10/05/17 [History] Lidocaine 5% 35.44 gm .XX Q2H PRN #1 tube 10/05/17 [Rx] Vit A/Vit C/Vit E/Zinc/Copper [Preservision] 1 tab PO BID 10/05/17 [History] Past Medical History HEENT History: Reports: Macular Degeneration Other HEENT History: wears glasses, rt hearing aid, "slow dry macular degeneration" Cardiovascular History: Reports: Afib, High Cholesterol, Hypertension Gastrointestinal History: Reports: Hemorrhoids Genitourinary History: Reports: None 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: Musculoskeletal History: Reports: Arthritis, Back Pain, Chronic Other Musculoskeletal History: rt shoulder pain, steroid injections in tail bone and shoulder Neurological History: Reports: Neuropathy, Diabetic Endocrine/Metabolic History: Reports: Diabetes, Type II Hematologic History: Reports: Anticoagulation Therapy, Blood Transfusion(s) Other Hematologic History: hx of blood transfusion with hysterectomy - Infectious Disease History Infectious Disease History: Reports: Chicken Pox - Past Surgical History Head Surgeries/Procedures: Reports: None HEENT Surgical History: Reports: Adenoidectomy, Cataract Surgery, Tonsillectomy Other HEENT Surgeries/Procedures: Bilateral cataract extraction with Lens implants GI Surgical History: Reports: Appendectomy, Cholecystectomy, Colonoscopy Female Surgical History: Reports: Hysterectomy, Salpingo-Oophorectomy, Tubal Ligation Other Female Surgeries/Procedures: Hysterectomy, 2nd surgery few years later taking Fallopian tubes and ovaries Other Neurological Surgeries/Procedures: hx spurs removed from vertebrae Musculoskeletal Surgical History: Reports: Knee Replacement Other Musculoskeletal Surgeries/Procedures:: both knees replacement Social & Family History - Family History Family Medical History: Noncontributory - Tobacco Use Smoking Status *Q: Never Smoker - Recreational Drug Use Recreational Drug Use: No ED ROS GENERAL - Review of Systems Review Of Systems: See Below ED EXAM, GENERAL - Physical Exam Exam: See Below Course - Vital Signs Last Recorded V/S: Last Vital Signs Temp 96.1 F 07/24/18 23:27 Pulse 166 H 07/24/18 23:27 Resp BP 167/100 H 07/24/18 23:27 Pulse Ox 94 L 07/24/18 23:27 Departure - Departure Time of Disposition: 00:39 Disposition: Home, Self-Care 01 Condition: Good Clinical Impression: Epistaxis - Discharge Information Forms: ED Department Discharge Additional Instructions: Return tomorrow afternoon or evening for removal of the balloon device return if symptoms persist or worsen treatment The following information is given to patients seen in the emergency department who are being discharged to home. This information is to outline your options for follow-up care. We provide all patients seen in our emergency department with a follow-up referral. The need for follow-up, as well as the timing and circumstances, are variable depending upon the specifics of your emergency department visit. If you don't have a primary care physician on staff, we will provide you with a referral. We always advise you to contact your personal physician following an emergency department visit to inform them of the circumstance of the visit and for follow-up with them and/or the need for any referrals to a consulting specialist. The emergency department will also refer you to a specialist when appropriate. This referral assures that you have the opportunity for follow-up care with a specialist. All of these measure are taken in an effort to provide you with optimal care, which includes your follow-up. Under all circumstances we always encourage you to contact your private physician who remains a resource for coordinating your care. When calling for follow-up care, please make the office aware that this follow-up is from your recent emergency room visit. If for any reason you are refused follow-up, please contact the [facility] emergency department at and asked to speak to the emergency department charge nurse.
[2018-07-25 01:19] VITALS: BP 154/90
== END 2018-07-25 01:20 | disposition home or self-care (01) ==
LOC: MW.ED 23:13
DX: R04.0 Epistaxis (principal); I10 Essential (primary) hypertension; E11.40 Type 2 diabetes mellitus with diabetic neuropathy, unspecified; I48.91 Unspecified atrial fibrillation; Z79.84 Long term (current) use of oral hypoglycemic drugs; Z79.899 Other long term (current) drug therapy; Z88.8 Allergy status to other drugs, medicaments and biological substances; Z88.6 Allergy status to analgesic agent; Z91.09 Other allergy status, other than to drugs and biological substances
CPT/HCPCS: 30901; 99282; 99283

== ENCOUNTER 2018-07-25 13:40 | Emergency (ER) | payer MEDICARE, BC ==
[2018-07-25 14:06] VITALS: BP 136/80
--- NOTE | 2018-07-25 14:30 | EDM.PDOC ---
ED HPI GENERAL MEDICAL PROBLEM - General Chief Complaint: ENT Problem Stated Complaint: NOSE BLEED Time Seen by Provider: 07/25/18 14:15 Source of Information: Reports: Patient History Limitations: Reports: No Limitations - History of Present Illness INITIAL COMMENTS - FREE TEXT/NARRATIVE: History of present illness: []Patient was seen last night and told to return this morning to have nasal packing removed from an episode of epistaxis. Currently on Xarelto. Review of systems: As per history of present illness and below otherwise all systems reviewed and negative. Past medical history: As per history of present illness and as reviewed below otherwise noncontributory. Surgical history: As per history of present illness and as reviewed below otherwise noncontributory. Social history: No reported history of drug or alcohol abuse. Family history: As per history of present illness and as reviewed below otherwise noncontributory. Physical exam: General: Well developed, well nourished in NAD HEENT: Atraumatic, normocephalic, pupils reactive, negative for conjunctival pallor or scleral icterus, mucous membranes moist, throat clear, neck supple, nontender, trachea midline. Nasal packing in place no active bleeding or blood on gauze. Lungs: Clear to auscultation, breath sounds equal bilaterally, chest nontender. Heart: S1S2, regular, negative for clicks, rubs, or JVD. Abdomen: NABS, Soft, nondistended, nontender. Negative for masses or hepatosplenomegaly. Negative for costovertebral tenderness. Pelvis: Stable nontender. Genitourinary: Deferred. Rectal: Deferred. Extremities: Atraumatic, negative for cords or calf pain. Neurovascular unremarkable. Neuro: Awake, alert, oriented. Cranial nerves II through XII unremarkable. Cerebellum unremarkable. Motor and sensory unremarkable throughout. Exam nonfocal. Skin:warm and dry Diagnostics: None Therapeutics: Left nasal packing removed, Lidocaine with epi used to anesthetize nares, bleeding controlled, silver nitrate was used to cauterize several areas of his bleeding ED Course: sTable Impression: Epistaxis packing removal Prescriptions: none Plan: Take meds as directed, follow up with your primary care physician, return to ER if symptoms worsen or change. Definitive disposition and diagnosis as appropriate pending reevaluation and review of above. Shoulder pain Pain Score (Numeric/FACES): 10 - Related Data Allergies Allergy/AdvReac Type Severity Reaction Status Date / Time fentanyl Allergy Hallucinati Verified 07/25/18 14:00 ons oxycodone Allergy Stomach Verified 07/25/18 14:00 Upset perfumes Allergy Headache Uncoded 07/25/18 14:00 Home Meds: Home Meds Nateglinide 120 mg PO TIDAC 08/30/14 [History] atorvaSTATin [Lipitor] 0.5 mg PO BEDTIME 08/30/14 [History] metFORMIN HCl [Metformin ER Osmotic] 3 tab PO PCBREAKFAST 08/30/14 [History] Diltiazem [Cardizem CD] 240 mg PO BRK #30 cap.cd 10/20/14 [Rx] Fish Oil/DHA/EPA [Fish Oil 1,200 MG] 2 tab PO BID 06/10/17 [History] Gabapentin [Neurontin] 3 tab PO TID 06/10/17 [History] Losartan Potassium 25 mg PO DAILY 06/10/17 [History] Polyethylene Glycol 3350 [Miralax] 1 capful PO BEDTIME 06/10/17 [History] aMILoride/Hydrochlorothiazide [Amiloride-HCTZ 5-50 MG] 0.5 tab PO DAILY [History] traZODone HCl [Trazodone HCl] 2.5 tab PO BEDTIME 06/10/17 [History] Cyanocobalamin (Vitamin B-12) [Vitamin B-12] 1,000 mcg PO BID 10/05/17 [History] Lidocaine 5% 35.44 gm .XX Q2H PRN #1 tube 10/05/17 [Rx] Vit A/Vit C/Vit E/Zinc/Copper [Preservision] 1 tab PO BID 10/05/17 [History] Past Medical History HEENT History: Reports: Macular Degeneration Other HEENT History: wears glasses, rt hearing aid, "slow dry macular degeneration" Cardiovascular History: Reports: Afib, High Cholesterol, Hypertension Gastrointestinal History: Reports: Hemorrhoids Genitourinary History: Reports: None 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: Musculoskeletal History: Reports: Arthritis, Back Pain, Chronic Other Musculoskeletal History: rt shoulder pain, steroid injections in tail bone and shoulder Neurological History: Reports: Neuropathy, Diabetic Endocrine/Metabolic History: Reports: Diabetes, Type II Hematologic History: Reports: Anticoagulation Therapy, Blood Transfusion(s) Other Hematologic History: hx of blood transfusion with hysterectomy - Infectious Disease History Infectious Disease History: Reports: Chicken Pox - Past Surgical History Head Surgeries/Procedures: Reports: None HEENT Surgical History: Reports: Adenoidectomy, Cataract Surgery, Tonsillectomy Other HEENT Surgeries/Procedures: Bilateral cataract extraction with Lens implants Cardiovascular Surgical History: Reports: None GI Surgical History: Reports: Appendectomy, Cholecystectomy, Colonoscopy Female Surgical History: Reports: Hysterectomy, Salpingo-Oophorectomy, Tubal Ligation Other Female Surgeries/Procedures: Hysterectomy, 2nd surgery few years later taking Fallopian tubes and ovaries Other Neurological Surgeries/Procedures: hx spurs removed from vertebrae Musculoskeletal Surgical History: Reports: Knee Replacement Other Musculoskeletal Surgeries/Procedures:: both knees replacement Social & Family History - Family History Family Medical History: Noncontributory - Tobacco Use Smoking Status *Q: Never Smoker - Caffeine Use Caffeine Use: Reports: None - Recreational Drug Use Recreational Drug Use: No ED ROS ENT - Review of Systems Review Of Systems: ROS reveals no pertinent complaints other than HPI. ED EXAM, ENT - Physical Exam Exam: See Below (See history of present illness) Course - Vital Signs Last Recorded V/S: Last Vital Signs Temp 97.9 F 07/25/18 14:01 Pulse 102 H 07/25/18 14:01 Resp 16 07/25/18 14:01 BP 136/80 07/25/18 14:01 Pulse Ox 96 07/25/18 14:01 - Orders/Labs/Meds Meds: Medications Discontinued Medications Generic Name Dose Route Start Last Admin Trade Name Freq PRN Reason Stop Dose Admin Lidocaine/Epinephrine 20 ml 07/25/18 14:34 07/25/18 14:45 Xylocaine 1% With Epinephrine 1:100,000 INJECT 07/25/18 14:35 20 ml ONETIME ONE Administration Ondansetron HCl 4 mg 07/25/18 14:35 07/25/18 14:45 Zofran Odt PO 07/25/18 14:36 4 mg ONETIME ONE Administration Departure - Departure Time of Disposition: 15:21 Disposition: Home, Self-Care 01 Condition: Good Clinical Impression: Epistaxis, Encounter for removal of nasal packing - Discharge Information *PRESCRIPTION DRUG MONITORING PROGRAM REVIEWED*: No *COPY OF PRESCRIPTION DRUG MONITORING REPORT IN PATIENT LIVIA: No Referrals: PCP,Unknown [Primary Care Provider] - Forms: ED Department Discharge Additional Instructions: The following information is given to patients seen in the emergency department who are being discharged to home. This information is to outline your options for follow-up care. We provide all patients seen in our emergency department with a follow-up referral. The need for follow-up, as well as the timing and circumstances, are variable depending upon the specifics of your emergency department visit. If you don't have a primary care physician on staff, we will provide you with a referral. We always advise you to contact your personal physician following an emergency department visit to inform them of the circumstance of the visit and for follow-up with them and/or the need for any referrals to a consulting specialist. The emergency department will also refer you to a specialist when appropriate. This referral assures that you have the opportunity for follow-up care with a specialist. All of these measure are taken in an effort to provide you with optimal care, which includes your follow-up. Under all circumstances we always encourage you to contact your private physician who remains a resource for coordinating your care. When calling for follow-up care, please make the office aware that this follow-up is from your recent emergency room visit. If for any reason you are refused follow-up, please contact the [facility] Emergency Department at and asked to speak to the emergency department charge nurse. [facility] [address] [place] [id number]
[2018-07-25] MEDS ORDERED: Lidocaine 1% with EPINEPHrine 1:100,000 20 ML MDV INJECT ONE (14:34)
[2018-07-25] MEDS ORDERED: Ondansetron 4 MG Tab.DIS PO ONE (14:35)
== END 2018-07-25 15:45 | disposition home or self-care (01) ==
LOC: MW.ED 13:40
DX: R04.0 Epistaxis (principal); I10 Essential (primary) hypertension; I48.91 Unspecified atrial fibrillation; E78.00 Pure hypercholesterolemia, unspecified; E11.40 Type 2 diabetes mellitus with diabetic neuropathy, unspecified; Z79.84 Long term (current) use of oral hypoglycemic drugs; Z88.8 Allergy status to other drugs, medicaments and biological substances; Z88.6 Allergy status to analgesic agent; Z91.09 Other allergy status, other than to drugs and biological substances; Z79.899 Other long term (current) drug therapy
CPT/HCPCS: 30901; 99282; A9270

== ENCOUNTER 2018-08-03 07:16 | Day surgery (SDC) | payer MEDICARE, BC ==
[~2018-08-03 07:16] MED LIST changes: -Bupivacaine 0.5% 30 ML SDV ONE; -Gelatin Sponge,Absorbable 12-7 mm Sponge TOP ONE; -Lactated Ringers 1,000 ML IV SCH; -Lidocaine 2% Jelly 30 ML Tube ONE; +Midazolam 1 MG/ML 2 ML SDV ONE; +Propofol 200 MG/20 ML SDV ONE; -Sodium Chloride 0.9% 10 ML Syringe FLUSH PRN; -Sodium Chloride 0.9% 2.5 ML Syringe FLUSH PRN; -cefOXitin 2 GM in Premix Bag 1 BAG IV ONE
[2018-08-03] MEDS ORDERED: Bupivacaine 25%/EPINEPHrine/PF 0 ML ONE (07:27)
[2018-08-03] MEDS ORDERED: Tetracaine HCl/PF 0.5% 4 ML Bottle ONE (07:35)
[2018-08-03] MEDS ORDERED: ceFAZolin 2 GM in Premix Bag 1 BAG IV ONE (08:00)
[2018-08-03] MEDS ORDERED: Lactated Ringers 1,000 ML IV SCH (08:00)
[2018-08-03] MEDS ORDERED: Bupivacaine 0.25%/EPINEPHrine 1:200,000 10 ML SDV INJECT ONE (08:00)
[2018-08-03 08:01] VITALS: BP 110/68
[2018-08-03] MEDS ORDERED: ceFAZolin/Dextrose,Iso-Osmotic 2 GM/50 ML Duplex Bag IV ONE (08:02)
--- NOTE | 2018-08-03 08:21 | PCM.SN ---
- Free Text/Narrative Note: pt seen in pre op [facility]. Noted to be in afib with rapid vent response 127- 129 at time of my exa or to ED. m. Discussed with surgeon options of rate controll attempts now or delaying surgery. Surgeon states she will need local with Epi to controll bleeding and would prefer delaying the surgery. PPt sees Dr Sanz, will contact his/her office and send pt to office
--- NOTE | 2018-08-03 11:26 | PCM.SN ---
- Free Text/Narrative Note: Discussed with anesthesia and message to Dr Terry. They will address the current issue with the Afib and HR and we will reschedule once safe. Could do use straight local if needed, but need HR under control prior to additional intervention to be safe. Discussed with patient and she understands.
== END 2018-08-03 09:00 ==
LOC: MW.SDS 07:16
PROVIDERS: ATTEND Plastic Surgery
DX: C44.311 Basal cell carcinoma of skin of nose (principal); C44.319 Basal cell carcinoma of skin of other parts of face; I48.91 Unspecified atrial fibrillation; I10 Essential (primary) hypertension; E11.9 Type 2 diabetes mellitus without complications; E78.5 Hyperlipidemia, unspecified; G62.9 Polyneuropathy, unspecified; Z87.891 Personal history of nicotine dependence; Z79.84 Long term (current) use of oral hypoglycemic drugs; Z79.01 Long term (current) use of anticoagulants; Z79.899 Other long term (current) drug therapy; Z88.5 Allergy status to narcotic agent
CPT/HCPCS: 82962; J7120; A9270-GY; J0690; J2250; J2704

== ENCOUNTER 2018-08-03 08:52 | Emergency (ER) | payer MEDICARE, BC ==
[2018-08-03] MEDS ORDERED: Diltiazem 25 MG/5 ML SDV IVPUSH ONE (09:15)
--- NOTE | 2018-08-03 09:28 | EDM.PDOC ---
ED HPI GENERAL MEDICAL PROBLEM - General Chief Complaint: Cardiovascular Problem Stated Complaint: OR Time Seen by Provider: 08/03/18 09:13 Source of Information: Reports: Patient History Limitations: Reports: No Limitations - History of Present Illness INITIAL COMMENTS - FREE TEXT/NARRATIVE: History of present illness: []Patient has a history of atrial fibrillation and was in preop for skin lesion removal when she was found to be in A. fib with RVR. She transferred her to the ER for treatment. Patient has no symptoms other than a mild headache. She normally is on Xarelto it was stopped 4 days ago and does take diltiazem. She denies chest pain, shortness of breath or dizziness. Review of systems: As per history of present illness and below otherwise all systems reviewed and negative. Past medical history: As per history of present illness and as reviewed below otherwise noncontributory. Surgical history: As per history of present illness and as reviewed below otherwise noncontributory. Social history: No reported history of drug or alcohol abuse. Family history: As per history of present illness and as reviewed below otherwise noncontributory. Physical exam: General: Well developed, well nourished in NAD HEENT: Atraumatic, normocephalic, pupils reactive, negative for conjunctival pallor or scleral icterus, mucous membranes moist, throat clear, neck supple, nontender, trachea midline. Lungs: Clear to auscultation, breath sounds equal bilaterally, chest nontender. Heart: S1S2, regular, negative for clicks, rubs, or JVD. Abdomen: NABS, Soft, nondistended, nontender. Negative for masses or hepatosplenomegaly. Negative for costovertebral tenderness. Pelvis: Stable nontender. Genitourinary: Deferred. Rectal: Deferred. Extremities: Atraumatic, negative for cords or calf pain. Neurovascular unremarkable. Neuro: Awake, alert, oriented. Cranial nerves II through XII unremarkable. Cerebellum unremarkable. Motor and sensory unremarkable throughout. Exam nonfocal. Skin:warm and dry Diagnostics: EKG, CBC, chemistry, troponin Therapeutics: Diltiazem 10 mg ED Course: Stable Impression: Atrial fibrillation with RVR Prescriptions: None Plan: Follow-up with primary care Definitive disposition and diagnosis as appropriate pending reevaluation and review of above. - Related Data Allergies Allergy/AdvReac Type Severity Reaction Status Date / Time fentanyl Allergy Hallucinati Verified 08/03/18 10:13 ons oxycodone Allergy Stomach Verified 08/03/18 10:14 Upset perfumes Allergy Intermediate Headache Uncoded 08/03/18 10:14 Home Meds: Home Meds Nateglinide 120 mg PO TIDAC 08/30/14 [History] atorvaSTATin [Lipitor] 0.5 mg PO BEDTIME 08/30/14 [History] metFORMIN HCl [Metformin ER Osmotic] 1,500 mg PO PCBREAKFAST 08/30/14 [History] Diltiazem [Cardizem CD] 240 mg PO BRK #30 cap.cd 10/20/14 [Rx] Fish Oil/DHA/EPA [Fish Oil 1,200 MG] 1,200 mg PO DAILY 06/10/17 [History] Gabapentin [Neurontin] 900 mg PO TID 06/10/17 [History] Losartan Potassium 25 mg PO QPM 06/10/17 [History] Polyethylene Glycol 3350 [Miralax] 1 capful PO BEDTIME 06/10/17 [History] aMILoride/Hydrochlorothiazide [Amiloride-HCTZ 5-50 MG] 0.5 tab PO DAILY [History] traZODone HCl [Trazodone HCl] 2.5 tab PO BEDTIME 06/10/17 [History] Cyanocobalamin (Vitamin B-12) [Vitamin B-12] 1,000 mcg PO BID 10/05/17 [History] Rivaroxaban [Xarelto] 15 mg PO DAILY 07/29/18 [History] Vit C/E/Zn/Coppr/Lutein/Zeaxan [Preservision Areds 2 Softgel] 2 cap PO BID 07/29 [History] Past Medical History HEENT History: Reports: Macular Degeneration Other HEENT History: wears glasses, rt hearing aid, "slow dry macular degeneration" Cardiovascular History: Reports: Afib, High Cholesterol, Hypertension Respiratory History: Reports: None Gastrointestinal History: Reports: Hemorrhoids Genitourinary History: Reports: None 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: Musculoskeletal History: Reports: Arthritis, Back Pain, Chronic Other Musculoskeletal History: rt shoulder pain, steroid injections in tail bone and shoulder Neurological History: Reports: Neuropathy, Diabetic Other Neuro History: degenerative disc disease, hx of motion sickness Psychiatric History: Reports: Anxiety Endocrine/Metabolic History: Reports: Diabetes, Type II Hematologic History: Reports: Anticoagulation Therapy, Blood Transfusion(s) Other Hematologic History: hx of blood transfusion with hysterectomy Immunologic History: Reports: None Oncologic (Cancer) History: Reports: None Dermatologic History: Reports: None - Infectious Disease History Infectious Disease History: Reports: Chicken Pox - Past Surgical History Head Surgeries/Procedures: Reports: None HEENT Surgical History: Reports: Adenoidectomy, Cataract Surgery, Tonsillectomy Cardiovascular Surgical History: Reports: None Respiratory Surgical History: Reports: None GI Surgical History: Reports: None Female Surgical History: Reports: Hysterectomy, Salpingo-Oophorectomy, Tubal Ligation Endocrine Surgical History: Reports: None Neurological Surgical History: Reports: None Musculoskeletal Surgical History: Reports: Knee Replacement Other Musculoskeletal Surgeries/Procedures:: both knees replacement Oncologic Surgical History: Reports: None Dermatological Surgical History: Reports: None Social & Family History - Family History Family Medical History: Noncontributory - Tobacco Use Smoking Status *Q: Never Smoker Second Hand Smoke Exposure: No - Caffeine Use Caffeine Use: Reports: None - Recreational Drug Use Recreational Drug Use: No ED ROS GENERAL - Review of Systems Review Of Systems: ROS reveals no pertinent complaints other than HPI. ED EXAM, GENERAL - Physical Exam Exam: See Below (History of present illness) Course - Vital Signs Last Recorded V/S: Last Vital Signs Temp 95.6 F 08/03/18 08:58 Pulse 129 H 08/03/18 08:58 Resp 16 08/03/18 08:58 BP 114/64 08/03/18 08:58 Pulse Ox 93 L 08/03/18 08:58 - Orders/Labs/Meds Orders: Active Orders 24 hr Category Date Time Status Cardiac Monitoring [RC] . DIRECTED Care 08/03/18 09:14 Active EKG Documentation Completion [RC] STAT Care 08/03/18 09:14 Active Labs: Laboratory Tests 08/03/18 08/03/18 Range/Units 09:23 09:23 WBC 9.72 (4.0-11.0) K/uL RBC 4.21 L (4.30-5.90) M/uL Hgb 12.4 (12.0-16.0) g/dL Hct 37.0 (36.0-46.0) % MCV 87.9 (80.0-98.0) fL MCH 29.5 (27.0-32.0) pg MCHC 33.5 (31.0-37.0) g/dL RDW Std Deviation 47.9 (28.0-62.0) fl RDW Coeff of Yonas 15 (11.0-15.0) % Plt Count 204 (150-400) K/uL MPV 10.40 (7.40-12.00) fL Neut % (Auto) 88.8 H (48.0-80.0) % Lymph % (Auto) 4.3 L (16.0-40.0) % [place] % (Auto) 6.3 (0.0-15.0) % Eos % (Auto) 0.4 (0.0-7.0) % Baso % (Auto) 0.2 (0.0-1.5) % Neut # (Auto) 8.6 H (1.4-5.7) K/uL Lymph # (Auto) 0.4 L (0.6-2.4) K/uL [place] # (Auto) 0.6 (0.0-0.8) K/uL Eos # (Auto) 0.0 (0.0-0.7) K/uL Baso # (Auto) 0.0 (0.0-0.1) K/uL Nucleated RBC % 0.0 /100WBC Nucleated RBCs # 0 K/uL Sodium 138 (136-145) mmol/L Potassium 4.3 (3.5-5.1) mmol/L Chloride 103 (98-107) mmol/L Carbon Dioxide 25.4 (21.0-32.0) mmol/L BUN 39 H (7.0-18.0) mg/dL Creatinine 1.1 H (0.6-1.0) mg/dL Est Cr Clr Drug Dosing 41.21 mL/min Estimated GFR (MDRD) 47.6 ml/min Glucose 132 H (74-106) mg/dL Calcium 8.7 (8.5-10.1) mg/dL Total Bilirubin 0.7 (0.2-1.0) mg/dL AST 8 L (15-37) IU/L ALT 11 L (14-63) IU/L Alkaline Phosphatase 56 (46-116) U/L Troponin I < 0.050 (0.000-0.056) ng/mL Total Protein 5.8 L (6.4-8.2) g/dL Albumin 3.6 (3.4-5.0) g/dL Globulin 2.2 L (2.6-4.0) g/dL Albumin/Globulin Ratio 1.6 (0.9-1.6) TSH 3rd Generation 1.11 (0.36-3.74) uIU/mL Meds: Medications Discontinued Medications Generic Name Dose Route Start Last Admin Trade Name Tali PRN Reason Stop Dose Admin Acetaminophen 650 mg 08/03/18 09:39 08/03/18 09:46 Tylenol PO 08/03/18 09:40 650 mg NOW ONE Administration Diltiazem HCl 20 mg 08/03/18 09:15 08/03/18 09:22 Diltiazem IVPUSH 08/03/18 09:16 10 mg ONETIME ONE Administration Departure - Departure Time of Disposition: 11:17 Disposition: Home, Self-Care 01 Condition: Good Clinical Impression: Atrial fibrillation with RVR Referrals: PCP,None [Primary Care Provider] - Forms: ED Department Discharge Additional Instructions: The following information is given to patients seen in the emergency department who are being discharged to home. This information is to outline your options for follow-up care. We provide all patients seen in our emergency department with a follow-up referral. The need for follow-up, as well as the timing and circumstances, are variable depending upon the specifics of your emergency department visit. If you don't have a primary care physician on staff, we will provide you with a referral. We always advise you to contact your personal physician following an emergency department visit to inform them of the circumstance of the visit and for follow-up with them and/or the need for any referrals to a consulting specialist. The emergency department will also refer you to a specialist when appropriate. This referral assures that you have the opportunity for follow-up care with a specialist. All of these measure are taken in an effort to provide you with optimal care, which includes your follow-up. Under all circumstances we always encourage you to contact your private physician who remains a resource for coordinating your care. When calling for follow-up care, please make the office aware that this follow-up is from your recent emergency room visit. If for any reason you are refused follow-up, please contact the [facility] Emergency Department at and asked to speak to the emergency department charge nurse. [facility] [address] [place] [phone] - My Orders Last 24 Hours: My Active Orders 08/03/18 09:14 Cardiac Monitoring [RC] . DIRECTED EKG Documentation Completion [RC] STAT - Assessment/Plan Last 24 Hours: My Active Orders 08/03/18 09:14 Cardiac Monitoring [RC] . DIRECTED EKG Documentation Completion [RC] STAT
[2018-08-03] MEDS ORDERED: Acetaminophen 325 MG Tab PO ONE (09:39)
[2018-08-03 10:08] LABS: CHLORIDE,CL 103 mmol/L (98-107); SODIUM,NA 138 mmol/L (136-145)
[2018-08-03 12:52] VITALS: BP 99/57
== END 2018-08-03 11:23 | disposition home or self-care (01) ==
LOC: MW.ED 08:52
DX: I48.91 Unspecified atrial fibrillation (principal); E78.00 Pure hypercholesterolemia, unspecified; I10 Essential (primary) hypertension; E11.40 Type 2 diabetes mellitus with diabetic neuropathy, unspecified; Z88.8 Allergy status to other drugs, medicaments and biological substances; Z88.5 Allergy status to narcotic agent; Z79.899 Other long term (current) drug therapy
CPT/HCPCS: 36415; 80053; 84443; 84484; 85025; 93005; 96374; 99285; A9270; J3490; 82962; J0690; J2250; J2704; J7120

== ENCOUNTER 2019-10-01 20:25 | Emergency (ER) | payer MEDICARE, BC ==
[2019-10-01] MEDS ORDERED: Sodium Chloride 0.9% 2.5 ML Syringe FLUSH PRN ×2 (20:32)
[2019-10-01] MEDS ORDERED: Sodium Chloride 0.9% 10 ML Syringe FLUSH PRN (20:32)
--- NOTE | 2019-10-01 20:45 | EDM.PDOC ---
ED HPI GENERAL MEDICAL PROBLEM - General Chief Complaint: Abdominal Pain Stated Complaint: NAUSEA,LOWER ABDOMINAL PAIN Time Seen by Provider: 10/01/19 20:28 Source of Information: Reports: Patient History Limitations: Reports: No Limitations - History of Present Illness INITIAL COMMENTS - FREE TEXT/NARRATIVE: 84-year-old female with history of diverticulosis, ACS, Afib with RVR presents with abdominal pain. Abdominal pain is diffuse, constant, described as burning sensation, rated at 9/10, started 4 days ago. Associated with nausea, 2 episodes of melanotic diarrhea today, dysuria, runny nose. She did take Pepto- Bismol yesterday. She was seen by Dr. Ortez yesterday who diagnosed her with constipation and UTI. She was prescribed Bactrim and docusate. She denies ch est pain, shortness of breath, headache, palpitations, sore throat, vomiting, back pain. She is currently on Xarelto. ROS: A 10-point review of systems, other than pertinent positives and negatives as stated per HPI, is otherwise negative PHYSICAL EXAM General: AOx4, GCS = 15, No distress HEENT: dry mucous membrane Neck: supple, no meningismus, no Kernig or Brudzinski Cardiac: S1S2 irregular rhythm, regular rate Respiratory: CTAB, no crackles or rales, no wheezing Abdomen: Soft, periumbilical tenderness, no rebound or guarding, nondistended, no pulsatile mass. Hemocult NEGATIVE. Back: nontender Musculoskeletal: NVI distally, no deformity Neuro: No focal deficits, CN 2 - 12 WNL. abdominal Pain Score (Numeric/FACES): 10 - Related Data Allergies Allergy/AdvReac Type Severity Reaction Status Date / Time fentanyl Allergy Hallucinati Verified 10/01/19 20:40 ons oxycodone Allergy Stomach Verified 10/01/19 20:40 Upset perfumes Allergy Intermediate Headache Uncoded 10/01/19 20:40 Home Meds: Home Meds Nateglinide 120 mg PO TIDAC 08/30/14 [History] atorvaSTATin [Lipitor] 20 mg PO BEDTIME 08/30/14 [History] metFORMIN HCl [Metformin ER Osmotic] 2,000 mg PO PCBREAKFAST 08/30/14 [History] Diltiazem [Cardizem CD] 240 mg PO BRK #30 cap.cd 10/20/14 [Rx] Fish Oil/DHA/EPA [Fish Oil 1,200 MG] 1,200 mg PO DAILY 06/10/17 [History] Gabapentin [Neurontin] 900 mg PO TID 06/10/17 [History] Losartan Potassium 25 mg PO DAILY 06/10/17 [History] aMILoride/Hydrochlorothiazide [Amiloride-HCTZ 5-50 MG] 0.5 tab PO DAILY 06/10/17 [History] polyethylene glycoL 3350 [Miralax] 1 capful PO BEDTIME 06/10/17 [History] traZODone HCl [Trazodone HCl] 25 mg PO BEDTIME 06/10/17 [History] Rivaroxaban [Xarelto] 15 mg PO DAILY 07/29/18 [History] Cyanocobalamin (Vitamin B12) [Vitamin B12] 1,000 mcg PO BID 10/01/19 [History] Digoxin [Lanoxin] 250 mcg PO DAILY 10/01/19 [History] Lactulose 10 gm PO BID #75 ml 10/01/19 [Rx] Nitroglycerin 0.4 mg SL ASDIRECTED PRN 10/01/19 [History] Vit A/Vit C/Vit E/Zinc/Copper [Preservision] 1 tab PO BID 10/01/19 [History] Past Medical History HEENT History: Reports: Macular Degeneration Other HEENT History: wears glasses, rt hearing aid, "slow dry macular degeneration" Cardiovascular History: Reports: Afib, High Cholesterol, Hypertension Respiratory History: Reports: None Gastrointestinal History: Reports: Hemorrhoids Genitourinary History: Reports: 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: Musculoskeletal History: Reports: Arthritis, Back Pain, Chronic Other Musculoskeletal History: rt shoulder pain, steroid injections in tail bone and shoulder Neurological History: Reports: Neuropathy, Diabetic Other Neuro History: degenerative disc disease, hx of motion sickness Psychiatric History: Reports: Anxiety Endocrine/Metabolic History: Reports: Diabetes, Type II Hematologic History: Reports: Anticoagulation Therapy, Blood Transfusion(s) Other Hematologic History: hx of blood transfusion with hysterectomy Immunologic History: Reports: None Oncologic (Cancer) History: Reports: None Dermatologic History: Reports: None - Infectious Disease History Infectious Disease History: Reports: Chicken Pox - Past Surgical History Head Surgeries/Procedures: Reports: None HEENT Surgical History: Reports: Adenoidectomy, Cataract Surgery, Tonsillectomy Cardiovascular Surgical History: Reports: None Respiratory Surgical History: Reports: None GI Surgical History: Reports: None Female Surgical History: Reports: Hysterectomy, Salpingo-Oophorectomy, Tubal Ligation Endocrine Surgical History: Reports: None Neurological Surgical History: Reports: None Musculoskeletal Surgical History: Reports: Knee Replacement Other Musculoskeletal Surgeries/Procedures:: both knees replacement Oncologic Surgical History: Reports: None Dermatological Surgical History: Reports: None Social & Family History - Family History Family Medical History: Noncontributory - Caffeine Use Caffeine Use: Reports: None ED ROS GENERAL - Review of Systems Review Of Systems: Comprehensive ROS is negative, except as noted in HPI. ED EXAM, GI/ABD - Physical Exam Exam: See Below (see dictation) EKG INTERPRETATION EKG Interpretation Comments: 50 Bpm, afib, normal QRS interval, no STEMI. EKG and rhythm strip interpreted by [place] at 1003p Course - Vital Signs Last Recorded V/S: Last Vital Signs Temp 96 F L 10/01/19 20:32 Pulse 78 10/01/19 20:32 Resp 18 10/01/19 20:32 BP Pulse Ox 94 L 10/01/19 20:32 - Orders/Labs/Meds Orders: Active Orders 24 hr Category Date Time Status EKG Documentation Completion [RC] STAT Care 10/01/19 21:58 Active UA RFX VALENTÍN AND CULT IF INDIC [URIN] Stat Lab 10/01/19 20:32 Ordered Sodium Chloride 0.9% [Saline Flush] Med 10/01/19 20:32 Active 10 ml FLUSH ASDIRECTED PRN Sodium Chloride 0.9% [Saline Flush] Med 10/01/19 20:32 Active 2.5 ml FLUSH ASDIRECTED PRN Sodium Chloride 0.9% [Saline Flush] Med 10/01/19 20:32 Active 2.5 ml FLUSH ASDIRECTED PRN Saline Lock Insert [OM.PC] Stat Oth 10/01/19 20:32 Ordered Medication Orders Sodium Chloride (Saline Flush) 2.5 ml FLUSH ASDIRECTED PRN PRN Reason: Keep Vein Open Sodium Chloride (Saline Flush) 2.5 ml FLUSH ASDIRECTED PRN PRN Reason: Keep Vein Open Sodium Chloride (Saline Flush) 10 ml FLUSH ASDIRECTED PRN PRN Reason: Keep Vein Open Labs: Laboratory Tests 10/01/19 10/01/19 10/01/19 Range/Units 20:50 20:50 20:50 WBC 6.88 (4.0-11.0) K/uL RBC 4.03 L (4.30-5.90) M/uL Hgb 12.0 (12.0-16.0) g/dL Hct 35.0 L (36.0-46.0) % MCV 86.8 (80.0-98.0) fL MCH 29.8 (27.0-32.0) pg MCHC 34.3 (31.0-37.0) g/dL RDW Std Deviation 44.7 (28.0-62.0) fl RDW Coeff of Yonas 14 (11.0-15.0) % Plt Count 189 (150-400) K/uL MPV 10.40 (7.40-12.00) fL Neut % (Auto) 72.4 (48.0-80.0) % Lymph % (Auto) 15.4 L (16.0-40.0) % [place] % (Auto) 10.9 (0.0-15.0) % Eos % (Auto) 1.0 (0.0-7.0) % Baso % (Auto) 0.3 (0.0-1.5) % Neut # (Auto) 5.0 (1.4-5.7) K/uL Lymph # (Auto) 1.1 (0.6-2.4) K/uL [place] # (Auto) 0.8 (0.0-0.8) K/uL Eos # (Auto) 0.1 (0.0-0.7) K/uL Baso # (Auto) 0.0 (0.0-0.1) K/uL Nucleated RBC % 0.0 /100WBC Nucleated RBCs # 0 K/uL Sodium 121 L (136-145) mmol/L Potassium 4.2 (3.5-5.1) mmol/L Chloride 87 L (98-107) mmol/L Carbon Dioxide 26.2 (21.0-32.0) mmol/L BUN 11 (7.0-18.0) mg/dL Creatinine 1.1 H (0.6-1.0) mg/dL Est Cr Clr Drug Dosing 40.50 mL/min Estimated GFR (MDRD) 47.4 ml/min Glucose 100 (74-106) mg/dL Calcium 8.9 (8.5-10.1) mg/dL Total Bilirubin 0.4 (0.2-1.0) mg/dL AST 19 (15-37) IU/L ALT 22 (14-63) IU/L Alkaline Phosphatase 48 (46-116) U/L Troponin I < 0.050 (0.000-0.056) ng/mL Total Protein 6.3 L (6.4-8.2) g/dL Albumin 4.0 (3.4-5.0) g/dL Globulin 2.3 L (2.6-4.0) g/dL Albumin/Globulin Ratio 1.7 H (0.9-1.6) Lipase 174 (73-393) U/L Meds: Medications Generic Name Dose Route Start Last Admin Trade Name Freq PRN Reason Stop Dose Admin Sodium Chloride 2.5 ml 10/01/19 20:32 Saline Flush FLUSH ASDIRECTED PRN Keep Vein Open Sodium Chloride 2.5 ml 10/01/19 20:32 Saline Flush FLUSH ASDIRECTED PRN Keep Vein Open Sodium Chloride 10 ml 10/01/19 20:32 Saline Flush FLUSH ASDIRECTED PRN Keep Vein Open Discontinued Medications Generic Name Dose Route Start Last Admin Trade Name Freq PRN Reason Stop Dose Admin Ondansetron HCl 4 mg 10/01/19 21:57 10/01/19 22:03 Zofran Odt PO 10/01/19 21:58 4 mg ONETIME ONE Administration - Re-Assessments/Exams Free Text/Narrative Re-Assessment/Exam: 10/01/19 22:25 After treatments and a prolonged observation period in the ER, the patient improved clinically and is stable for discharge. I performed a repeat exam ination and the patient has not demonstrated any new abnormal findings. Patient exhibits normal vital signs and has exhibited a normal gait. I advised the patient to return to the ER for reevaluation if symptoms worsened, and to follow up with their PCP within 2-3 days. MEDICAL DECISION MAKING: I reviewed the patients past medical records, lab and radiographic findings. I discussed the case with the patient. My differential diagnosis included: Colitis, SBO, constipation, ileus. CT demonstrated constipation. She has no fever, bandemia, leukocytosis, I do not suspect underlying sepsis. She is currently on Bactrim for her UTI. Sodium = 121, however she is clinically lucid with clear decision-making capacity. She has a normal gait. I do not suspect need for admission for hyponatremia. Her EKG and troponin were unremarkable, I do not suspect atypical chest pain. Departure - Departure Time of Disposition: 22:26 Disposition: Home, Self-Care 01 Condition: Good Clinical Impression: Abdominal pain, Constipation - Discharge Information *PRESCRIPTION DRUG MONITORING PROGRAM REVIEWED*: Not Applicable *COPY OF PRESCRIPTION DRUG MONITORING REPORT IN PATIENT LIVIA: Not Applicable Prescriptions: Lactulose 10 gm PO BID #75 ml Instructions: Constipation, Adult, Abdominal Pain, Adult, [id number] Referrals: Earle Terry MD [Primary Care Provider] - 3 Days Forms: ED Department Discharge Additional Instructions: The following information is given to patients seen in the emergency department who are being discharged to home. This information is to outline your options for follow-up care. We provide all patients seen in our emergency department with a follow-up referral. The need for follow-up, as well as the timing and circumstances, are variable depending upon the specifics of your emergency department visit. If you don't have a primary care physician on staff, we will provide you with a referral. We always advise you to contact your personal physician following an emergency department visit to inform them of the circumstance of the visit and for follow-up with them and/or the need for any referrals to a consulting specialist. The emergency department will also refer you to a specialist when appropriate. This referral assures that you have the opportunity for follow-up care with a specialist. All of these measure are taken in an effort to provide you with optimal care, which includes your follow-up. Under all circumstances we always encourage you to contact your private physician who remains a resource for coordinating your care. When calling for follow-up care, please make the office aware that this follow-up is from your recent emergency room visit. If for any reason you are refused follow-up, please contact the [facility] Emergency Department at and asked to speak to the emergency department charge nurse. If you do not have a primary care doctor, please follow up with the clinics below within 3-5 days. [facility] [address] [place] [id number] [facility] [address] [place] [id number] Sepsis Event Note (ED) - Focused Exam Vital Signs: Vital Signs Temp Pulse Resp Pulse Ox 10/01/19 20:32 96 F L 78 18 94 L - My Orders Last 24 Hours: My Active Orders 10/01/19 20:32 UA RFX VALENTÍN AND CULT IF INDIC [URIN] Stat Sodium Chloride 0.9% [Saline Flush] 10 ml FLUSH ASDIRECTED PRN Sodium Chloride 0.9% [Saline Flush] 2.5 ml FLUSH ASDIRECTED PRN Sodium Chloride 0.9% [Saline Flush] 2.5 ml FLUSH ASDIRECTED PRN Saline Lock Insert [OM.PC] Stat 10/01/19 21:58 EKG Documentation Completion [RC] STAT - Assessment/Plan Last 24 Hours: My Active Orders 10/01/19 20:32 UA RFX VALENTÍN AND CULT IF INDIC [URIN] Stat Sodium Chloride 0.9% [Saline Flush] 10 ml FLUSH ASDIRECTED PRN Sodium Chloride 0.9% [Saline Flush] 2.5 ml FLUSH ASDIRECTED PRN Sodium Chloride 0.9% [Saline Flush] 2.5 ml FLUSH ASDIRECTED PRN Saline Lock Insert [OM.PC] Stat 10/01/19 21:58 EKG Documentation Completion [RC] STAT
--- NOTE | 2019-10-01 21:11 | CT ---
CT abdomen and pelvis Technique: Multiple axial sections were obtained from above the dome of the diaphragm inferiorly through the pubic symphysis. Intravenous and oral contrast not utilized. Comparison: No prior abdominal imaging is available. Findings: Visualized lung bases show nothing acute. Small hiatal hernia is noted. Noncontrast appearance of the liver shows no discrete abnormality. Spleen shows no focal abnormality. Adrenal glands show no nodule. Pancreas shows no discrete abnormality. Kidneys show no abnormal calcifications. Left renal cyst is seen within the mid pole region measuring 1.2 cm. No ureteral dilatation or ureteral stone is seen. Aorta shows atherosclerotic calcification without aneurysm. No retroperitoneal adenopathy or mesenteric abnormalities are seen. No pelvic mass or adenopathy is seen. No free fluid or inflammatory change is appreciated. Appendix is not definitely visualized. Mild increased stool is seen throughout the colon. Bone window settings were reviewed. Scattered degenerative change within the spine is seen. No acute osseous finding is appreciated. Impression: 1. Mild increased stool within the colon. Other nonacute findings as described above. Diagnostic code #2 Study was dictated in MDT
[2019-10-01 21:13] LABS: CARBON DIOXIDE,CO2 26.2 mmol/L (21.0-32.0); POTASSIUM,K 4.2 mmol/L (3.5-5.1)
[2019-10-01] MEDS ORDERED: Ondansetron 4 MG Tab.DIS PO ONE (21:57)
[2019-10-01 22:30] VITALS: BP 125/48; PULSE 56
== END 2019-10-01 22:40 | disposition home or self-care (01) ==
LOC: MW.ED 20:25
DX: K59.00 Constipation, unspecified (principal); I10 Essential (primary) hypertension; E78.00 Pure hypercholesterolemia, unspecified; I48.91 Unspecified atrial fibrillation; E11.40 Type 2 diabetes mellitus with diabetic neuropathy, unspecified; F41.9 Anxiety disorder, unspecified; Z79.84 Long term (current) use of oral hypoglycemic drugs; Z88.5 Allergy status to narcotic agent; Z91.048 Other nonmedicinal substance allergy status; Z88.4 Allergy status to anesthetic agent; Z79.899 Other long term (current) drug therapy
CPT/HCPCS: 36415; 74176; 80053; 83690; 84484; 85025; 93005; 99284; A9270; 93010; 99283

== ENCOUNTER 2019-10-03 17:04 | Inpatient (IN) | payer MEDICARE, BC, OTHER ==
[2019-10-03] MEDS ORDERED: Sodium Chloride 0.9% 10 ML Syringe FLUSH PRN (17:20)
[2019-10-03] MEDS ORDERED: Sodium Chloride 0.9% 2.5 ML Syringe FLUSH PRN (17:20)
[2019-10-03] MEDS ORDERED: Ondansetron 4 MG/2 ML SDV IVPUSH ONE (17:29)
--- NOTE | 2019-10-03 17:36 | EDM.PDOC ---
ED HPI GENERAL MEDICAL PROBLEM - General Chief Complaint: Gastrointestinal Problem Stated Complaint: CHILLS VOMITING Time Seen by Provider: 10/03/19 17:08 - History of Present Illness INITIAL COMMENTS - FREE TEXT/NARRATIVE: 84-year-old female with a history of multiple medical problems including A. fib on digoxin and Xarelto as well as constipation and CAD who is presenting with generalized abdominal burning nausea and vomiting. Patient reports that her symptoms started 6 days ago with nausea and mild generalized abdominal discomfort. She saw her primary care doctor at that time and was diagnosed with a bladder infection and started on Bactrim she was also diagnosed with constipation and started on a laxative. She was seen in this emergency room 2 days ago for the symptoms. At that time blood work was notable for hyponatremia to 121 but she had normal mentation CT abdomen pelvis was without concerning pathology and patient was subsequently discharged. Patient states that she has had persistent nausea today she finally had a number of large blowout bowel movements she now continues to have diffuse burning epigastric discomfort as well as nausea with one episode of nonbloody nonbilious emesis in the taxi on the way over here. She denies fevers but endorses chills no cough or shortness of breath no chest pain no vertigo. Symptoms persistent without clear trigger exacerbating or alleviating factors radiation or other associated symptoms. lower abdomen Pain Score (Numeric/FACES): 10 - Related Data Allergies Allergy/AdvReac Type Severity Reaction Status Date / Time fentanyl Allergy Hallucinati Verified 10/03/19 17:15 ons oxycodone Allergy Stomach Verified 10/03/19 17:15 Upset perfumes Allergy Intermediate Headache Uncoded 10/03/19 17:15 Home Meds: Home Meds Nateglinide 120 mg PO TIDAC 08/30/14 [History] atorvaSTATin [Lipitor] 20 mg PO BEDTIME 08/30/14 [History] metFORMIN HCl [Metformin ER Osmotic] 2,000 mg PO PCBREAKFAST 08/30/14 [History] Diltiazem [Cardizem CD] 240 mg PO BRK #30 cap.cd 10/20/14 [Rx] Fish Oil/DHA/EPA [Fish Oil 1,200 MG] 1 tab PO DAILY 06/10/17 [History] Gabapentin [Neurontin] 900 mg PO TID 06/10/17 [History] Losartan Potassium 25 mg PO DAILY 06/10/17 [History] aMILoride/Hydrochlorothiazide [Amiloride-HCTZ 5-50 MG] 0.5 tab PO DAILY 06/10/17 [History] polyethylene glycoL 3350 [Miralax] 1 capful PO BEDTIME 06/10/17 [History] traZODone HCl [Trazodone HCl] 125 mg PO BEDTIME 06/10/17 [History] Rivaroxaban [Xarelto] 15 mg PO DAILY 07/29/18 [History] Cyanocobalamin (Vitamin B12) [Vitamin B12] 1,000 mcg PO BID 10/01/19 [History] Digoxin [Lanoxin] 250 mcg PO DAILY 10/01/19 [History] Lactulose 10 gm PO BID #75 ml 10/01/19 [Rx] Nitroglycerin 0.4 mg SL ASDIRECTED PRN 10/01/19 [History] Vit A/Vit C/Vit E/Zinc/Copper [Preservision] 1 tab PO BID 10/01/19 [History] Acetaminophen [Tylenol Extra Strength] 1 - 2 tab PO Q6H PRN 10/03/19 [History] Past Medical History HEENT History: Reports: Macular Degeneration Other HEENT History: wears glasses, rt hearing aid, "slow dry macular degene ration" Cardiovascular History: Reports: Afib, High Cholesterol, Hypertension Other Cardiovascular History: remote svt Respiratory History: Reports: None Gastrointestinal History: Reports: Hemorrhoids Genitourinary History: Reports: None [employer] History: Reports: Musculoskeletal History: Reports: Arthritis, Back Pain, Chronic Other Musculoskeletal History: rt shoulder pain, steroid injections in tail bone and shoulder Neurological History: Reports: Neuropathy, Diabetic Other Neuro History: degenerative disc disease, hx of motion sickness Psychiatric History: Reports: Anxiety Endocrine/Metabolic History: Reports: Diabetes, Type II Hematologic History: Reports: Anticoagulation Therapy, Blood Transfusion(s) Other Hematologic History: hx of blood transfusion with hysterectomy Immunologic History: Reports: None Oncologic (Cancer) History: Reports: None Dermatologic History: Reports: None - Infectious Disease History Infectious Disease History: Reports: Chicken Pox, Measles - Past Surgical History Head Surgeries/Procedures: Reports: None HEENT Surgical History: Reports: Adenoidectomy, Cataract Surgery, Tonsillectomy Cardiovascular Surgical History: Reports: None Respiratory Surgical History: Reports: None GI Surgical History: Reports: None Female Surgical History: Reports: Hysterectomy, Salpingo-Oophorectomy, Tubal Ligation Endocrine Surgical History: Reports: None Neurological Surgical History: Reports: None Musculoskeletal Surgical History: Reports: Knee Replacement Other Musculoskeletal Surgeries/Procedures:: both knees replacement Oncologic Surgical History: Reports: None Dermatological Surgical History: Reports: None Social & Family History - Family History Family Medical History: Noncontributory - Tobacco Use Smoking Status *Q: Never Smoker - Caffeine Use Caffeine Use: Reports: None - Recreational Drug Use Recreational Drug Use: No ED ROS GENERAL - Review of Systems Review Of Systems: See Below Free Text/Narrative/Comment: General: No fever. Skin: No rash. Eyes: No vision problems. ENT: No sore throat. Neck: No neck stiffness. Respiratory: No shortness of breath. Cardiac: No chest pain. Gastrointestinal: Per HPI Urinary: No dysuria. Musculoskeletal: No myalgias/arthralgias. Neurologic: No headache. ED EXAM, GENERAL - Physical Exam Exam: See Below Free Text/Narrative:: General Appearance: No acute distress, appears comfortable Skin: No rash HEENT: Normocephalic/atraumatic, sclera anicteric, mucous membranes dry Neck: Normal range of motion Chest and Lungs: Bilateral breath sounds, clear to auscultation Cardiovascular: Regular rate and rhythm, no murmur Abdomen: Soft, non-tender Back: Normal Musculoskeletal: No edema or tenderness Neurologic: Awake, alert, no obvious deficits, moving all extremities Psychiatric: Appropriate, cooperative EKG INTERPRETATION EKG Interpretation Comments: EKG obtained at 1732 demonstrates atrial fibrillation with ventricular rate of 65 incomplete left bundle branch block but no acute ischemia Course - Vital Signs Last Recorded V/S: Last Vital Signs Temp 97.5 F 10/03/19 17:11 Pulse 85 10/03/19 17:11 Resp 16 10/03/19 17:11 BP 147/63 H 10/03/19 17:11 Pulse Ox 93 L 10/03/19 17:11 - Orders/Labs/Meds Orders: Active Orders 24 hr Category Date Time Status EKG 12 Lead [EKG Documentation Completion] [RC] STAT Care 10/03/19 17:21 Active CORONAVIRUS COVID-19 PCR PHL Stat Lab 10/03/19 18:17 Ordered CREATININE,URINE RAND [URCHEM] Stat Lab 10/03/19 18:25 Ordered CULTURE BLOOD [BC] Stat Lab 10/03/19 18:08 Received CULTURE BLOOD [BC] Stat Lab 10/03/19 18:16 Results DIGOXIN [CHEM] Stat Lab 10/03/19 17:33 Received OSMOLALITY - SERUM [REF] Stat Lab 10/03/19 18:16 Received OSMOLALITY - URINE Stat Lab 10/03/19 18:25 Ordered POTASSIUM,URINE RANDOM [URCHEM] Stat Lab 10/03/19 18:25 Ordered PROCALCITONIN [REF] Stat Lab 10/03/19 18:16 Received SODIUM,NA [CHEM] Stat Lab 10/03/19 18:16 Received UA W/VALENTÍN RFLX IF INDICATED [URIN] Stat Lab 10/03/19 17:20 Ordered Sodium Chloride 0.9% [Normal Saline] 1,000 ml Med 10/03/19 17:47 Active IV .Bolus Sodium Chloride 0.9% [Saline Flush] Med 10/03/19 17:20 Active 10 ml FLUSH ASDIRECTED PRN Sodium Chloride 0.9% [Saline Flush] Med 10/03/19 17:20 Active 2.5 ml FLUSH ASDIRECTED PRN Blood Culture x2 Reflex Set [OM.PC] Stat Oth 10/03/19 17:48 Ordered Saline Lock Insert [OM.PC] Stat Oth 10/03/19 17:20 Ordered Medication Orders Sodium Chloride (Normal Saline) 1,000 mls @ 999 mls/hr IV .Bolus ONE Stop: 10/03/19 18:47 Last Admin: 10/03/19 18:06 Dose: 999 mls/hr Documented by: JAYME Sodium Chloride (Saline Flush) 10 ml FLUSH ASDIRECTED PRN PRN Reason: Keep Vein Open Last Admin: 10/03/19 17:38 Dose: 10 ml Documented by: JAYME Sodium Chloride (Saline Flush) 2.5 ml FLUSH ASDIRECTED PRN PRN Reason: Keep Vein Open Last Admin: 10/03/19 17:38 Dose: 2.5 ml Documented by: JAYME Labs: Laboratory Tests 10/03/19 10/03/19 10/03/19 Range/Units 17:33 17:33 18:08 WBC 6.58 (4.0-11.0) K/uL RBC 3.89 L (4.30-5.90) M/uL Hgb 11.6 L (12.0-16.0) g/dL Hct 33.2 L (36.0-46.0) % MCV 85.3 (80.0-98.0) fL MCH 29.8 (27.0-32.0) pg MCHC 34.9 (31.0-37.0) g/dL RDW Std Deviation 43.2 (28.0-62.0) fl RDW Coeff of Yonas 14 (11.0-15.0) % Plt Count 166 (150-400) K/uL MPV 10.40 (7.40-12.00) fL Neut % (Auto) 82.0 H (48.0-80.0) % Lymph % (Auto) 9.0 L (16.0-40.0) % [place] % (Auto) 8.5 (0.0-15.0) % Eos % (Auto) 0.3 (0.0-7.0) % Baso % (Auto) 0.2 (0.0-1.5) % Neut # (Auto) 5.4 (1.4-5.7) K/uL Lymph # (Auto) 0.6 (0.6-2.4) K/uL [place] # (Auto) 0.6 (0.0-0.8) K/uL Eos # (Auto) 0.0 (0.0-0.7) K/uL Baso # (Auto) 0.0 (0.0-0.1) K/uL Nucleated RBC % 0.0 /100WBC Nucleated RBCs # 0 K/uL Lactate 2.4 H* (0.20-2.00) mmol/L Sodium 120 L (136-145) mmol/L Potassium 3.9 (3.5-5.1) mmol/L Chloride 85 L (98-107) mmol/L Carbon Dioxide 21.0 (21.0-32.0) mmol/L BUN 8 (7.0-18.0) mg/dL Creatinine 1.0 (0.6-1.0) mg/dL Est Cr Clr Drug Dosing 44.55 mL/min Estimated GFR (MDRD) 53.0 ml/min Glucose 115 H (74-106) mg/dL Calcium 9.3 (8.5-10.1) mg/dL Total Bilirubin 0.6 (0.2-1.0) mg/dL AST 18 (15-37) IU/L ALT 24 (14-63) IU/L Alkaline Phosphatase 50 (46-116) U/L Troponin I < 0.050 (0.000-0.056) ng/mL Total Protein 6.5 (6.4-8.2) g/dL Albumin 4.3 (3.4-5.0) g/dL Globulin 2.2 L (2.6-4.0) g/dL Albumin/Globulin Ratio 2.0 H (0.9-1.6) Lipase 233 (73-393) U/L Meds: Medications Generic Name Dose Route Start Last Admin Trade Name Freq PRN Reason Stop Dose Admin Sodium Chloride 1,000 mls @ 999 mls/hr 10/03/19 17:47 10/03/19 18:06 Normal Saline IV 10/03/19 18:47 999 mls/hr .Bolus ONE Administration Sodium Chloride 10 ml 10/03/19 17:20 10/03/19 17:38 Saline Flush FLUSH 10 ml ASDIRECTED PRN Administration Keep Vein Open Sodium Chloride 2.5 ml 10/03/19 17:20 10/03/19 17:38 Saline Flush FLUSH 2.5 ml ASDIRECTED PRN Administration Keep Vein Open Discontinued Medications Generic Name Dose Route Start Last Admin Trade Name Freq PRN Reason Stop Dose Admin Ondansetron HCl 4 mg 10/03/19 17:29 10/03/19 17:38 Zofran IVPUSH 10/03/19 17:30 4 mg ONETIME ONE Administration Departure - Departure Time of Disposition: 18:37 Disposition: Refer to Observation Condition: Fair Clinical Impression: Hyponatremia - Discharge Information *PRESCRIPTION DRUG MONITORING PROGRAM REVIEWED*: Not Applicable *COPY OF PRESCRIPTION DRUG MONITORING REPORT IN PATIENT LIVIA: Not Applicable Referrals: Earle Terry MD [Primary Care Provider] - Forms: ED Department Discharge Sepsis Event Note (ED) - Evaluation Sepsis Screening Result: No Definite Risk - Focused Exam Vital Signs: Vital Signs Temp Pulse Resp BP Pulse Ox 10/03/19 17:11 97.5 F 85 16 147/63 H 93 L - My Orders Last 24 Hours: My Active Orders 10/03/19 17:20 UA W/VALENTÍN RFLX IF INDICATED [URIN] Stat Sodium Chloride 0.9% [Saline Flush] 10 ml FLUSH ASDIRECTED PRN Sodium Chloride 0.9% [Saline Flush] 2.5 ml FLUSH ASDIRECTED PRN Saline Lock Insert [OM.PC] Stat 10/03/19 17:21 EKG 12 Lead [EKG Documentation Completion] [RC] STAT 10/03/19 17:33 DIGOXIN [CHEM] Stat 10/03/19 17:47 Sodium Chloride 0.9% [Normal Saline] 1,000 ml IV .Bolus 10/03/19 17:48 Blood Culture x2 Reflex Set [OM.PC] Stat 10/03/19 18:08 CULTURE BLOOD [BC] Stat 10/03/19 18:16 CULTURE BLOOD [BC] Stat OSMOLALITY - SERUM [REF] Stat PROCALCITONIN [REF] Stat SODIUM,NA [CHEM] Stat 10/03/19 18:17 CORONAVIRUS COVID-19 PCR PHL Stat 10/03/19 18:25 CREATININE,URINE RAND [URCHEM] Stat OSMOLALITY - URINE Stat POTASSIUM,URINE RANDOM [URCHEM] Stat - Assessment/Plan Last 24 Hours: My Active Orders 10/03/19 17:20 UA W/VALENTÍN RFLX IF INDICATED [URIN] Stat Sodium Chloride 0.9% [Saline Flush] 10 ml FLUSH ASDIRECTED PRN Sodium Chloride 0.9% [Saline Flush] 2.5 ml FLUSH ASDIRECTED PRN Saline Lock Insert [OM.PC] Stat 10/03/19 17:21 EKG 12 Lead [EKG Documentation Completion] [RC] STAT 10/03/19 17:33 DIGOXIN [CHEM] Stat 10/03/19 17:47 Sodium Chloride 0.9% [Normal Saline] 1,000 ml IV .Bolus 10/03/19 17:48 Blood Culture x2 Reflex Set [OM.PC] Stat 10/03/19 18:08 CULTURE BLOOD [BC] Stat 10/03/19 18:16 CULTURE BLOOD [BC] Stat OSMOLALITY - SERUM [REF] Stat PROCALCITONIN [REF] Stat SODIUM,NA [CHEM] Stat 10/03/19 18:17 CORONAVIRUS COVID-19 PCR PHL Stat 10/03/19 18:25 CREATININE,URINE RAND [URCHEM] Stat OSMOLALITY - URINE Stat POTASSIUM,URINE RANDOM [URCHEM] Stat Assessment:: 84-year-old female with multiple medical problems presenting with persistent burning epigastric pain nausea and vomiting. Multiple etiologies were considered primary ACS felt very unlikely but must be considered EKG and troponin pending. That said given duration of symptoms a single troponin felt sufficient to rule out ACS. Worsening hyponatremia is a consideration CBC and CMP are pending. Sepsis due to worsening UTI is a consideration and urinalysis and lactic acid pending. Abdominal exam is without focality and she had a normal abdomen pelvis CT recently so would not repeat that imaging at this time. Other etiologies considered as well. No right upper quadrant tenderness that suggest primary biliary pathology but if unexpected LFT elevations are present could consider biliary ultrasound. Hermelinda ordered for symptoms and will reassess. 1748: Patient's lactic acid minimally elevated at 2.4. She is not tachycardic she is not febrile sepsis needs to be considered but a full 30/kg bolus would be 2.2 L and I do not want to give her that much fluid until we know what her sodium is especially considering that she has no other signs of sepsis at this time. That said certainly we need to start hydrating her and so first liter of normal saline is been ordered. 1826: Sodium is indeed quite low at 120. This is a hypochloremic hyponatremia and she is clinically hypovolemic. Urine and serum awesome's and urine electrolytes added to order set pro calcitonin as well continue to await urine results and chest x-ray. LFTs are normal would not reimage abdomen pelvis at this point. If remainder of infectious work-up negative patient will likely need admission simply for sodium correction given the severity of her symptoms and her persistent vomiting and so screening COVID swab has been sent. 1835: Pt discussed in full with Dr. Waters. Agrees labs are most consistent with hypovolemic hyponatremia. Agrees unlikely to be true sepsis and given concern with hyponatremia would not do full 30ml/kg fluid bolus. Procal and urine studies pending. Will refer to observation on tele with plan to recheck labs in a couple of hours.
[2019-10-03] MEDS ORDERED: Sodium Chloride 0.9% 1,000 ML IV ONE (17:47)
[2019-10-03 18:14] LABS: BLOOD UREA NITROGEN,BUN 8 mg/dL (7.0-18.0); CHLORIDE,CL 85 mmol/L (98-107); GLUCOSE RANDOM 115 mg/dL (74-106); LIPASE 233 U/L (73-393); POTASSIUM,K 3.9 mmol/L (3.5-5.1)
[2019-10-03 18:16] LABS: SODIUM,NA 120 mmol/L (136-145)
--- NOTE | 2019-10-03 18:27 | CR ---
Chest: 2 views of the chest were obtained. Comparison: No prior chest imaging is available. Heart size is slightly enlarged. Tortuous thoracic aorta is present. Upper mediastinum is normal. Minimal atelectasis is noted within the lateral left costophrenic angle. Lungs otherwise are clear. Bony structures are unremarkable for the patient's age. Impression: 1. Findings as described above. 2. Nothing acute is suspected. Diagnostic code #2 This report was dictated in MDT
[2019-10-03] MEDS ORDERED: Albuterol/Ipratropium 3.0-0.5 MG/3 ML Neb Soln NEB PRN (19:24)
[2019-10-03] MEDS ORDERED: Ondansetron 4 MG/2 ML SDV IVPUSH PRN (19:24)
--- NOTE | 2019-10-03 19:33 | PCM.HP.2 ---
H&P History of Present Illness - General Date of Service: 10/03/19 Admit Problem/Dx: Admission Diagnosis/Problem Admission Diagnosis/Problem Hyponatremia - History of Present Illness Initial Comments - Free Text/Narative: 84-year-old female with HTN, HLD, CAD A. fib on digoxin and Xarelto as well as constipation, presenting with abdominal discomfort, nausea and vomiting. Patient reports that her symptoms started 6 days ago with nausea and mild generalized abdominal discomfort. She saw her primary care doctor who diagnosed her with a bladder infection and started on Bactrim, Abdominal x-ray showed constipation and she was started on a laxative. She was seen in this emergency room 2 days ago for similar symptoms. Lab work showed hyponatremia to 121 but she had normal mentation, CT abdomen pelvis was done which showed no acute pathology patient was subsequently discharged home. Patient states that today she had severe nausea, 2 episodes of small vomiting, she also had several watery bowel movements after she took several laxatives for past few days. She denies fevers, cough or shortness of breath no chest pain no vertigo. Today's lab work was significant for worsening Hyponatremia, and elevated lactic acid, received 1L of IV NS in ER. patient was NOT in sepsis,no leucocytosis, no fever, NEHEMIAS stable. Patient is being admitted for further management of her hyponatremia and abdominal pain. lower abdomen Pain Score (Numeric/FACES): 10 - Related Data Allergies/Adverse Reactions: Allergies Allergy/AdvReac Type Severity Reaction Status Date / Time fentanyl Allergy Hallucinati Verified 10/03/19 21:02 ons oxycodone Allergy Stomach Verified 10/03/19 21:02 Upset perfumes Allergy Intermediate Headache Uncoded 10/03/19 21:02 Home Medications: Home Meds Nateglinide 120 mg PO TIDAC 08/30/14 [History] atorvaSTATin [Lipitor] 20 mg PO BEDTIME 08/30/14 [History] metFORMIN HCl [Metformin ER Osmotic] 2,000 mg PO PCBREAKFAST 08/30/14 [History] Diltiazem [Cardizem CD] 240 mg PO BRK #30 cap.cd 10/20/14 [Rx] Fish Oil/DHA/EPA [Fish Oil 1,200 MG] 1 tab PO DAILY 06/10/17 [History] Gabapentin [Neurontin] 900 mg PO TID 06/10/17 [History] Losartan Potassium 25 mg PO BEDTIME 06/10/17 [History] aMILoride/Hydrochlorothiazide [Amiloride-HCTZ 5-50 MG] 0.5 tab PO DAILY 06/10/17 [History] polyethylene glycoL 3350 [Miralax] 1 capful PO BEDTIME 06/10/17 [History] traZODone HCl [Trazodone HCl] 125 mg PO BEDTIME 06/10/17 [History] Rivaroxaban [Xarelto] 15 mg PO DAILY 07/29/18 [History] Cyanocobalamin (Vitamin B12) [Vitamin B12] 1,000 mcg PO BID 10/01/19 [History] Digoxin [Lanoxin] 250 mcg PO DAILY 10/01/19 [History] Lactulose 10 gm PO BID #75 ml 10/01/19 [Rx] Nitroglycerin 0.4 mg SL ASDIRECTED PRN 10/01/19 [History] Vit A/Vit C/Vit E/Zinc/Copper [Preservision] 1 tab PO BID 10/01/19 [History] Acetaminophen [Tylenol Extra Strength] 1 - 2 tab PO Q6H PRN 10/03/19 [History] Past Medical History HEENT History: Reports: Macular Degeneration Other HEENT History: wears glasses, rt hearing aid, "slow dry macular deg eneration" Cardiovascular History: Reports: Afib, High Cholesterol, Hypertension Other Cardiovascular History: remote svt Respiratory History: Reports: None Gastrointestinal History: Reports: Hemorrhoids Genitourinary History: Reports: None 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: Musculoskeletal History: Reports: Arthritis, Back Pain, Chronic Other Musculoskeletal History: rt shoulder pain, steroid injections in tail bone and shoulder Neurological History: Reports: Neuropathy, Diabetic Other Neuro History: degenerative disc disease, hx of motion sickness Psychiatric History: Reports: Anxiety Endocrine/Metabolic History: Reports: Diabetes, Type II Hematologic History: Reports: Anticoagulation Therapy, Blood Transfusion(s) Other Hematologic History: hx of blood transfusion with hysterectomy Immunologic History: Reports: None Oncologic (Cancer) History: Reports: None Dermatologic History: Reports: None - Infectious Disease History Infectious Disease History: Reports: Chicken Pox, Measles - Past Surgical History Head Surgeries/Procedures: Reports: None HEENT Surgical History: Reports: Adenoidectomy, Cataract Surgery, Tonsillectomy Cardiovascular Surgical History: Reports: None Respiratory Surgical History: Reports: None GI Surgical History: Reports: None Female Surgical History: Reports: Hysterectomy, Salpingo-Oophorectomy, Tubal Ligation Endocrine Surgical History: Reports: None Neurological Surgical History: Reports: None Musculoskeletal Surgical History: Reports: Knee Replacement Other Musculoskeletal Surgeries/Procedures:: both knees replacement Oncologic Surgical History: Reports: None Dermatological Surgical History: Reports: None Social & Family History - Family History Family Medical History: Noncontributory - Tobacco Use Smoking Status *Q: Never Smoker - Caffeine Use Caffeine Use: Reports: None - Recreational Drug Use Recreational Drug Use: No H&P Review of Systems - Review of Systems: Review Of Systems: See Below General: Reports: Chills, Malaise, Weakness, Fatigue. Denies: Fever Pulmonary: Denies: Shortness of Breath, Wheezing, Pleuritic Chest Pain Cardiovascular: Denies: Chest Pain, Palpitations, Dyspnea on Exertion, Orthopnea Gastrointestinal: Reports: Abdominal Pain (tenderness), Anorexia, Diarrhea, Decreased Appetite, Nausea, Vomiting. Denies: Black Stool, Bloody Stool, Constipation Genitourinary: Denies: Dysuria, Frequency Musculoskeletal: Denies: Neck Pain, Shoulder Pain, Arm Pain Skin: Denies: Cyanosis, Jaundice, Mottled Exam - Exam Exam: See Below - Vital Signs Vital Signs: Last Vital Signs Temp 36.4 C 10/03/19 17:11 Pulse 85 10/03/19 17:11 Resp 16 10/03/19 17:11 BP 147/63 H 10/03/19 17:11 Pulse Ox 93 L 10/03/19 17:11 Weight: 73.936 kg - Exam General: Oriented Neck: Supple, Trachea Midline Lungs: Clear to Auscultation, Normal Respiratory Effort Cardiovascular: Regular Rate, Normal S1, Normal S2 GI/Abdominal Exam: Normal Bowel Sounds, Soft, Tender. No: Distended, Guarding, Rigid - Patient Data Lab Results Last 24 hrs: Laboratory Results - last 24 hr 10/03/19 10/03/19 10/03/19 Range/Units 17:33 17:33 17:33 WBC (4.0-11.0) K/uL RBC (4.30-5.90) M/uL Hgb (12.0-16.0) g/dL Hct (36.0-46.0) % MCV (80.0-98.0) fL MCH (27.0-32.0) pg MCHC (31.0-37.0) g/dL RDW Std Deviation (28.0-62.0) fl RDW Coeff of Yonas (11.0-15.0) % Plt Count (150-400) K/uL MPV (7.40-12.00) fL Neut % (Auto) (48.0-80.0) % Lymph % (Auto) (16.0-40.0) % [place] % (Auto) (0.0-15.0) % Eos % (Auto) (0.0-7.0) % Baso % (Auto) (0.0-1.5) % Neut # (Auto) (1.4-5.7) K/uL Lymph # (Auto) (0.6-2.4) K/uL [place] # (Auto) (0.0-0.8) K/uL Eos # (Auto) (0.0-0.7) K/uL Baso # (Auto) (0.0-0.1) K/uL Nucleated RBC % /100WBC Nucleated RBCs # K/uL Lactate 2.4 H* (0.20-2.00) mmol/L Sodium 120 L (136-145) mmol/L Potassium 3.9 (3.5-5.1) mmol/L Chloride 85 L (98-107) mmol/L Carbon Dioxide 21.0 (21.0-32.0) mmol/L BUN 8 (7.0-18.0) mg/dL Creatinine 1.0 (0.6-1.0) mg/dL Est Cr Clr Drug Dosing 44.55 mL/min Estimated GFR (MDRD) 53.0 ml/min Glucose 115 H (74-106) mg/dL Calcium 9.3 (8.5-10.1) mg/dL Total Bilirubin 0.6 (0.2-1.0) mg/dL AST 18 (15-37) IU/L ALT 24 (14-63) IU/L Alkaline Phosphatase 50 (46-116) U/L Troponin I < 0.050 (0.000-0.056) ng/mL Total Protein 6.5 (6.4-8.2) g/dL Albumin 4.3 (3.4-5.0) g/dL Globulin 2.2 L (2.6-4.0) g/dL Albumin/Globulin Ratio 2.0 H (0.9-1.6) Lipase 233 (73-393) U/L Digoxin 1.1 (0.9-2.0) ng/mL COVID-19 (JOSAFAT) (NEGATIVE) 10/03/19 10/03/19 10/03/19 Range/Units 18:08 18:16 18:34 WBC 6.58 (4.0-11.0) K/uL RBC 3.89 L (4.30-5.90) M/uL Hgb 11.6 L (12.0-16.0) g/dL Hct 33.2 L (36.0-46.0) % MCV 85.3 (80.0-98.0) fL MCH 29.8 (27.0-32.0) pg MCHC 34.9 (31.0-37.0) g/dL RDW Std Deviation 43.2 (28.0-62.0) fl RDW Coeff of Yonas 14 (11.0-15.0) % Plt Count 166 (150-400) K/uL MPV 10.40 (7.40-12.00) fL Neut % (Auto) 82.0 H (48.0-80.0) % Lymph % (Auto) 9.0 L (16.0-40.0) % [place] % (Auto) 8.5 (0.0-15.0) % Eos % (Auto) 0.3 (0.0-7.0) % Baso % (Auto) 0.2 (0.0-1.5) % Neut # (Auto) 5.4 (1.4-5.7) K/uL Lymph # (Auto) 0.6 (0.6-2.4) K/uL [place] # (Auto) 0.6 (0.0-0.8) K/uL Eos # (Auto) 0.0 (0.0-0.7) K/uL Baso # (Auto) 0.0 (0.0-0.1) K/uL Nucleated RBC % 0.0 /100WBC Nucleated RBCs # 0 K/uL Lactate (0.20-2.00) mmol/L Sodium 119 L* (136-145) mmol/L Potassium (3.5-5.1) mmol/L Chloride (98-107) mmol/L Carbon Dioxide (21.0-32.0) mmol/L BUN (7.0-18.0) mg/dL Creatinine (0.6-1.0) mg/dL Est Cr Clr Drug Dosing mL/min Estimated GFR (MDRD) ml/min Glucose (74-106) mg/dL Calcium (8.5-10.1) mg/dL Total Bilirubin (0.2-1.0) mg/dL AST (15-37) IU/L ALT (14-63) IU/L Alkaline Phosphatase (46-116) U/L Troponin I (0.000-0.056) ng/mL Total Protein (6.4-8.2) g/dL Albumin (3.4-5.0) g/dL Globulin (2.6-4.0) g/dL Albumin/Globulin Ratio (0.9-1.6) Lipase (73-393) U/L Digoxin (0.9-2.0) ng/mL COVID-19 (JOSAFAT) NEGATIVE (NEGATIVE) Result Diagrams: 10/03/19 18:08 10/03/19 22:56 Sadiq Results Last 24 hrs: Microbiology 10/03/19 18:16 Anaerobic Blood Culture - Final Blood - Venous - Lab Draw Sepsis Event Note - Evaluation Sepsis Screening Result: No Definite Risk - Focused Exam Vital Signs: Vital Signs Temp Pulse Resp BP Pulse Ox 10/03/19 17:11 36.4 C 85 16 147/63 H 93 L Date Exam was Performed: 10/04/19 Time Exam was Performed: 00:02 Problem List Initiated/Reviewed/Updated: Yes Orders Last 24hrs: Active Orders 24 hr Category Date Time Status Patient Status [ADT] Routine ADT 10/03/19 18:38 Active Ambulate [RC] ASDIRECTED Care 10/03/19 19:24 Ordered Antiembolic Devices [RC] PER UNIT ROUTINE Care 10/03/19 19:26 Ordered EKG 12 Lead [EKG Documentation Completion] [RC] STAT Care 10/03/19 17:21 Active Oxygen Therapy [RC] PRN Care 10/03/19 19:24 Ordered Pulse Oximetry [RC] PRN Care 10/03/19 19:24 Ordered RT Aerosol Therapy [RC] ASDIRECTED Care 10/03/19 19:26 Ordered VTE/DVT Education [RC] PER UNIT ROUTINE Care 10/03/19 19:24 Ordered Vital Signs [RC] Q4H Care 10/03/19 19:24 Ordered Clear Liquid Diet [DIET] Diet 10/03/19 Dinner Ordered BASIC METABOLIC PANEL,BMP [CHEM] Q6H Lab 10/03/19 23:00 Ordered BASIC METABOLIC PANEL,BMP [CHEM] Q6H Lab 10/04/19 05:00 Ordered BASIC METABOLIC PANEL,BMP [CHEM] Q6H Lab 10/04/19 11:00 Ordered CBC WITH AUTO DIFF [HEME] AM Lab 10/04/19 05:11 Ordered CREATININE,URINE RAND [URCHEM] Stat Lab 10/03/19 18:25 Ordered CULTURE BLOOD [BC] Stat Lab 10/03/19 18:08 Received CULTURE BLOOD [BC] Stat Lab 10/03/19 18:16 Results MAGNESIUM [CHEM] AM Lab 10/04/19 05:11 Ordered OSMOLALITY - SERUM [REF] Stat Lab 10/03/19 Ordered OSMOLALITY - URINE Stat Lab 10/03/19 18:25 Ordered PHOSPHORUS [CHEM] AM Lab 10/04/19 05:11 Ordered POTASSIUM,URINE RANDOM [URCHEM] Stat Lab 10/03/19 18:25 Ordered PROCALCITONIN [REF] Stat Lab 10/03/19 18:16 Received UA W/SADIQ RFLX IF INDICATED [URIN] Stat Lab 10/03/19 17:20 Ordered Albuterol/Ipratropium [DuoNeb 3.0-0.5 MG/3 ML] Med 10/03/19 19:24 Ordered 3 ml NEB Q4HRRT PRN Ondansetron [Zofran] Med 10/03/19 19:24 Ordered 4 mg IVPUSH Q4H PRN Sodium Chloride 0.9% @ 125 MLS/HR (1000ml) Med 10/03/19 19:30 Ordered Sodium Chloride 0.9% [Normal Saline] 1,000 ml IV ASDIRECTED Sodium Chloride 0.9% [Saline Flush] Med 10/03/19 17:20 Active 10 ml FLUSH ASDIRECTED PRN Sodium Chloride 0.9% [Saline Flush] Med 10/03/19 17:20 Active 2.5 ml FLUSH ASDIRECTED PRN Blood Culture x2 Reflex Set [OM.PC] Stat Oth 10/03/19 17:48 Ordered Saline Lock Insert [OM.PC] Stat Ot 10/03/19 17:20 Ordered Sequential Compression Device [OM.PC] Per Unit Routine Ot 10/03/19 19:25 Ordered Medication Orders Albuterol/Ipratropium (Duoneb 3.0-0.5 Mg/3 Ml) 3 ml NEB Q4HRRT PRN PRN Reason: Shortness Of Breath/wheezing Sodium Chloride (Normal Saline) 1,000 mls @ 125 mls/hr IV ASDIRECTED WILFREDO Ondansetron HCl (Zofran) 4 mg IVPUSH Q4H PRN PRN Reason: Nausea/Vomiting Sodium Chloride (Saline Flush) 10 ml FLUSH ASDIRECTED PRN PRN Reason: Keep Vein Open Last Admin: 10/03/19 17:38 Dose: 10 ml Documented by: JAYME Sodium Chloride (Saline Flush) 2.5 ml FLUSH ASDIRECTED PRN PRN Reason: Keep Vein Open Last Admin: 10/03/19 17:38 Dose: 2.5 ml Documented by: JAYME Assessment/Plan Comment:: 84 y/o F admitted for hypovolemic hyponatremia, likely due to her hctz use and diarrhea on top on that Received 1Lt in ER Start NS @125cc/hr, recheck BMP Q6H Resume home meds, hold HCTZ SCD for dvt ppx Diarrhea has improved likely due to recent laxative use fu on repeat lactate Cardiac diet
[2019-10-03] MEDS ORDERED: Nitroglycerin 0.4 MG Tab.SL SL PRN (19:35)
[2019-10-03] MEDS: Sodium Chloride 0.9% 1,000 ML IV SCH (20:53)
[2019-10-03] MEDS: Rivaroxaban 15 MG Tab PO SCH (22:21)
[2019-10-03] MEDS: atorvaSTATin 20 MG Tab PO SCH (22:21)
[2019-10-03] MEDS: Gabapentin 300 MG Cap PO SCH (22:21)
[2019-10-03] MEDS ORDERED: Promethazine 25 MG/ML SDV IM ONE (22:36)
[2019-10-03 23:16] LABS: CARBON DIOXIDE,CO2 24.6 mmol/L (21.0-32.0); POTASSIUM,K 3.6 mmol/L (3.5-5.1)
[2019-10-04] MEDS: traZODone 50 MG Tab PO SCH ×2 (00:28→23:08)
[2019-10-04] MEDS: Sodium Chloride 0.9% 1,000 ML IV SCH (04:41)
[2019-10-04] MEDS: Insulin Aspart 100 Units/ML 3 ML Pen SUBCUT SCH ×3 (06:49→17:01)
[2019-10-04] MEDS: Gabapentin 300 MG Cap PO SCH ×3 (06:49→21:55)
[2019-10-04 06:59] LABS: BLOOD UREA NITROGEN,BUN 6 mg/dL (7.0-18.0); CARBON DIOXIDE,CO2 26.3 mmol/L (21.0-32.0); CHLORIDE,CL 95 mmol/L (98-107); GLUCOSE RANDOM 92 mg/dL (74-106); POTASSIUM,K 3.8 mmol/L (3.5-5.1); SODIUM,NA 130 mmol/L (136-145)
[2019-10-04] MEDS ORDERED: Rivaroxaban 15 MG Tab PO SCH (09:00)
[2019-10-04] MEDS ORDERED: Diltiazem 120 MG Cap.CD PO SCH (09:00)
[2019-10-04] MEDS ORDERED: Digoxin 250 MCG Tab PO SCH (09:00)
[2019-10-04] MEDS ORDERED: Magnesium Sulfate/Water 2 GM in Premix Bag 1 BAG IV ONE (09:50)
[2019-10-04] MEDS: FISH OIL PO SCH (10:03)
[2019-10-04] MEDS: DHA PO SCH (10:03)
[2019-10-04] MEDS: EPA PO SCH (10:03)
[2019-10-04 11:53] LABS: BLOOD UREA NITROGEN,BUN 5 mg/dL (7.0-18.0); CARBON DIOXIDE,CO2 24.2 mmol/L (21.0-32.0); CHLORIDE,CL 98 mmol/L (98-107); GLUCOSE RANDOM 110 mg/dL (74-106); POTASSIUM,K 3.8 mmol/L (3.5-5.1); SODIUM,NA 131 mmol/L (136-145)
--- NOTE | 2019-10-04 12:52 | PCM.PN ---
- General Info Date of Service: 10/04/19 Admission Dx/Problem (Free Text): Admission Diagnosis/Problem Admission Diagnosis/Problem Hyponatremia - Review of Systems General: Denies: Fever, Weakness, Fatigue Pulmonary: Denies: Shortness of Breath, Pleuritic Chest Pain Gastrointestinal: Denies: Abdominal Pain, Constipation, Decreased Appetite, Diarrhea Genitourinary: Denies: Dysuria, Frequency, Burning Musculoskeletal: Denies: Neck Pain, Shoulder Pain, Arm Pain Skin: Denies: Cyanosis, Jaundice, Mottled Neurological: Denies: Confusion, Dizziness, Headache - Patient Data Vitals - Most Recent: Last Vital Signs Temp 36.2 C 10/04/19 11:00 Pulse 51 L 10/04/19 11:00 Resp 16 10/04/19 11:00 BP 110/62 10/04/19 11:00 Pulse Ox 95 10/04/19 11:00 Weight - Most Recent: 73.936 kg I&O - Last 24 Hours: Intake & Output 10/03/19 10/04/19 10/04/19 22:59 06:59 14:59 Intake Total 1243 Output Total 2400 Balance -1157 Lab Results Last 24 Hours: Laboratory Results - last 24 hr 10/03/19 10/03/19 10/03/19 Range/Units 17:33 17:33 17:33 WBC (4.0-11.0) K/uL RBC (4.30-5.90) M/uL Hgb (12.0-16.0) g/dL Hct (36.0-46.0) % MCV (80.0-98.0) fL MCH (27.0-32.0) pg MCHC (31.0-37.0) g/dL RDW Std Deviation (28.0-62.0) fl RDW Coeff of Yonas (11.0-15.0) % Plt Count (150-400) K/uL MPV (7.40-12.00) fL Neut % (Auto) (48.0-80.0) % Lymph % (Auto) (16.0-40.0) % [place] % (Auto) (0.0-15.0) % Eos % (Auto) (0.0-7.0) % Baso % (Auto) (0.0-1.5) % Neut # (Auto) (1.4-5.7) K/uL Lymph # (Auto) (0.6-2.4) K/uL [place] # (Auto) (0.0-0.8) K/uL Eos # (Auto) (0.0-0.7) K/uL Baso # (Auto) (0.0-0.1) K/uL Nucleated RBC % /100WBC Nucleated RBCs # K/uL Lactate 2.4 H* (0.20-2.00) mmol/L Sodium 120 L (136-145) mmol/L Potassium 3.9 (3.5-5.1) mmol/L Chloride 85 L (98-107) mmol/L Carbon Dioxide 21.0 (21.0-32.0) mmol/L BUN 8 (7.0-18.0) mg/dL Creatinine 1.0 (0.6-1.0) mg/dL Est Cr Clr Drug Dosing 44.55 mL/min Estimated GFR (MDRD) 53.0 ml/min Glucose 115 H (74-106) mg/dL POC Glucose (60-110) mg/dL Calcium 9.3 (8.5-10.1) mg/dL Phosphorus (2.6-4.7) mg/dL Magnesium (1.8-2.4) mg/dL Total Bilirubin 0.6 (0.2-1.0) mg/dL AST 18 (15-37) IU/L ALT 24 (14-63) IU/L Alkaline Phosphatase 50 (46-116) U/L Troponin I < 0.050 (0.000-0.056) ng/mL Total Protein 6.5 (6.4-8.2) g/dL Albumin 4.3 (3.4-5.0) g/dL Globulin 2.2 L (2.6-4.0) g/dL Albumin/Globulin Ratio 2.0 H (0.9-1.6) Lipase 233 (73-393) U/L Urine Color Urine Appearance Urine pH (5.0-8.0) Ur Specific [place] (1.001-1.035) Urine Protein (NEGATIVE) mg/dL Urine Glucose (UA) (NEGATIVE) mg/dL Urine Ketones (NEGATIVE) mg/dL Urine Occult Blood (NEGATIVE) Urine Nitrite (NEGATIVE) Urine Bilirubin (NEGATIVE) Urine Urobilinogen (<2.0) EU/dL Ur Leukocyte Esterase (NEGATIVE) Ur Random Creatinine mg/dL Ur Random Potassium mmol/L Digoxin 1.1 (0.9-2.0) ng/mL COVID-19 (JOSAFAT) (NEGATIVE) 10/03/19 10/03/19 10/03/19 Range/Units 18:08 18:16 18:34 WBC 6.58 (4.0-11.0) K/uL RBC 3.89 L (4.30-5.90) M/uL Hgb 11.6 L (12.0-16.0) g/dL Hct 33.2 L (36.0-46.0) % MCV 85.3 (80.0-98.0) fL MCH 29.8 (27.0-32.0) pg MCHC 34.9 (31.0-37.0) g/dL RDW Std Deviation 43.2 (28.0-62.0) fl RDW Coeff of Yonas 14 (11.0-15.0) % Plt Count 166 (150-400) K/uL MPV 10.40 (7.40-12.00) fL Neut % (Auto) 82.0 H (48.0-80.0) % Lymph % (Auto) 9.0 L (16.0-40.0) % [place] % (Auto) 8.5 (0.0-15.0) % Eos % (Auto) 0.3 (0.0-7.0) % Baso % (Auto) 0.2 (0.0-1.5) % Neut # (Auto) 5.4 (1.4-5.7) K/uL Lymph # (Auto) 0.6 (0.6-2.4) K/uL [place] # (Auto) 0.6 (0.0-0.8) K/uL Eos # (Auto) 0.0 (0.0-0.7) K/uL Baso # (Auto) 0.0 (0.0-0.1) K/uL Nucleated RBC % 0.0 /100WBC Nucleated RBCs # 0 K/uL Lactate (0.20-2.00) mmol/L Sodium 119 L* (136-145) mmol/L Potassium (3.5-5.1) mmol/L Chloride (98-107) mmol/L Carbon Dioxide (21.0-32.0) mmol/L BUN (7.0-18.0) mg/dL Creatinine (0.6-1.0) mg/dL Est Cr Clr Drug Dosing mL/min Estimated GFR (MDRD) ml/min Glucose (74-106) mg/dL POC Glucose (60-110) mg/dL Calcium (8.5-10.1) mg/dL Phosphorus (2.6-4.7) mg/dL Magnesium (1.8-2.4) mg/dL Total Bilirubin (0.2-1.0) mg/dL AST (15-37) IU/L ALT (14-63) IU/L Alkaline Phosphatase (46-116) U/L Troponin I (0.000-0.056) ng/mL Total Protein (6.4-8.2) g/dL Albumin (3.4-5.0) g/dL Globulin (2.6-4.0) g/dL Albumin/Globulin Ratio (0.9-1.6) Lipase (73-393) U/L Urine Color Urine Appearance Urine pH (5.0-8.0) Ur Specific [place] (1.001-1.035) Urine Protein (NEGATIVE) mg/dL Urine Glucose (UA) (NEGATIVE) mg/dL Urine Ketones (NEGATIVE) mg/dL Urine Occult Blood (NEGATIVE) Urine Nitrite (NEGATIVE) Urine Bilirubin (NEGATIVE) Urine Urobilinogen (<2.0) EU/dL Ur Leukocyte Esterase (NEGATIVE) Ur Random Creatinine mg/dL Ur Random Potassium mmol/L Digoxin (0.9-2.0) ng/mL COVID-19 (JOSAFAT) NEGATIVE (NEGATIVE) 10/03/19 10/03/19 10/03/19 Range/Units 19:10 19:10 22:56 WBC (4.0-11.0) K/uL RBC (4.30-5.90) M/uL Hgb (12.0-16.0) g/dL Hct (36.0-46.0) % MCV (80.0-98.0) fL MCH (27.0-32.0) pg MCHC (31.0-37.0) g/dL RDW Std Deviation (28.0-62.0) fl RDW Coeff of Yonas (11.0-15.0) % Plt Count (150-400) K/uL MPV (7.40-12.00) fL Neut % (Auto) (48.0-80.0) % Lymph % (Auto) (16.0-40.0) % [place] % (Auto) (0.0-15.0) % Eos % (Auto) (0.0-7.0) % Baso % (Auto) (0.0-1.5) % Neut # (Auto) (1.4-5.7) K/uL Lymph # (Auto) (0.6-2.4) K/uL [place] # (Auto) (0.0-0.8) K/uL Eos # (Auto) (0.0-0.7) K/uL Baso # (Auto) (0.0-0.1) K/uL Nucleated RBC % /100WBC Nucleated RBCs # K/uL Lactate (0.20-2.00) mmol/L Sodium 125 L (136-145) mmol/L Potassium 3.6 (3.5-5.1) mmol/L Chloride 91 L (98-107) mmol/L Carbon Dioxide 24.6 (21.0-32.0) mmol/L BUN 7 (7.0-18.0) mg/dL Creatinine 0.9 (0.6-1.0) mg/dL Est Cr Clr Drug Dosing 49.50 mL/min Estimated GFR (MDRD) 59.8 ml/min Glucose 129 H (74-106) mg/dL POC Glucose (60-110) mg/dL Calcium 8.5 (8.5-10.1) mg/dL Phosphorus (2.6-4.7) mg/dL Magnesium (1.8-2.4) mg/dL Total Bilirubin (0.2-1.0) mg/dL AST (15-37) IU/L ALT (14-63) IU/L Alkaline Phosphatase (46-116) U/L Troponin I (0.000-0.056) ng/mL Total Protein (6.4-8.2) g/dL Albumin (3.4-5.0) g/dL Globulin (2.6-4.0) g/dL Albumin/Globulin Ratio (0.9-1.6) Lipase (73-393) U/L Urine Color YELLOW Urine Appearance CLEAR Urine pH 6.0 (5.0-8.0) Ur Specific [place] 1.010 (1.001-1.035) Urine Protein NEGATIVE (NEGATIVE) mg/dL Urine Glucose (UA) NEGATIVE (NEGATIVE) mg/dL Urine Ketones NEGATIVE (NEGATIVE) mg/dL Urine Occult Blood NEGATIVE (NEGATIVE) Urine Nitrite NEGATIVE (NEGATIVE) Urine Bilirubin NEGATIVE (NEGATIVE) Urine Urobilinogen 0.2 (<2.0) EU/dL Ur Leukocyte Esterase NEGATIVE (NEGATIVE) Ur Random Creatinine 17.2 mg/dL Ur Random Potassium 20.2 mmol/L Digoxin (0.9-2.0) ng/mL COVID-19 (JOSAFAT) (NEGATIVE) 10/03/19 10/04/19 10/04/19 Range/Units 22:56 06:10 06:10 WBC 5.40 (4.0-11.0) K/uL RBC 3.74 L (4.30-5.90) M/uL Hgb 11.0 L (12.0-16.0) g/dL Hct 32.5 L (36.0-46.0) % MCV 86.9 (80.0-98.0) fL MCH 29.4 (27.0-32.0) pg MCHC 33.8 (31.0-37.0) g/dL RDW Std Deviation 44.9 (28.0-62.0) fl RDW Coeff of Yonas 14 (11.0-15.0) % Plt Count 167 (150-400) K/uL MPV 10.40 (7.40-12.00) fL Neut % (Auto) 71.3 (48.0-80.0) % Lymph % (Auto) 16.7 (16.0-40.0) % [place] % (Auto) 10.9 (0.0-15.0) % Eos % (Auto) 0.7 (0.0-7.0) % Baso % (Auto) 0.4 (0.0-1.5) % Neut # (Auto) 3.9 (1.4-5.7) K/uL Lymph # (Auto) 0.9 (0.6-2.4) K/uL [place] # (Auto) 0.6 (0.0-0.8) K/uL Eos # (Auto) 0.0 (0.0-0.7) K/uL Baso # (Auto) 0.0 (0.0-0.1) K/uL Nucleated RBC % 0.0 /100WBC Nucleated RBCs # 0 K/uL Lactate 1.9 (0.20-2.00) mmol/L Sodium 130 L (136-145) mmol/L Potassium 3.8 (3.5-5.1) mmol/L Chloride 95 L (98-107) mmol/L Carbon Dioxide 26.3 (21.0-32.0) mmol/L BUN 6 L (7.0-18.0) mg/dL Creatinine 0.7 (0.6-1.0) mg/dL Est Cr Clr Drug Dosing 63.64 mL/min Estimated GFR (MDRD) > 60.0 ml/min Glucose 92 (74-106) mg/dL POC Glucose (60-110) mg/dL Calcium 8.2 L (8.5-10.1) mg/dL Phosphorus (2.6-4.7) mg/dL Magnesium (1.8-2.4) mg/dL Total Bilirubin (0.2-1.0) mg/dL AST (15-37) IU/L ALT (14-63) IU/L Alkaline Phosphatase (46-116) U/L Troponin I (0.000-0.056) ng/mL Total Protein (6.4-8.2) g/dL Albumin (3.4-5.0) g/dL Globulin (2.6-4.0) g/dL Albumin/Globulin Ratio (0.9-1.6) Lipase (73-393) U/L Urine Color Urine Appearance Urine pH (5.0-8.0) Ur Specific [place] (1.001-1.035) Urine Protein (NEGATIVE) mg/dL Urine Glucose (UA) (NEGATIVE) mg/dL Urine Ketones (NEGATIVE) mg/dL Urine Occult Blood (NEGATIVE) Urine Nitrite (NEGATIVE) Urine Bilirubin (NEGATIVE) Urine Urobilinogen (<2.0) EU/dL Ur Leukocyte Esterase (NEGATIVE) Ur Random Creatinine mg/dL Ur Random Potassium mmol/L Digoxin (0.9-2.0) ng/mL COVID-19 (JOSAFAT) (NEGATIVE) 10/04/19 10/04/19 10/04/19 Range/Units 06:10 06:43 11:03 WBC (4.0-11.0) K/uL RBC (4.30-5.90) M/uL Hgb (12.0-16.0) g/dL Hct (36.0-46.0) % MCV (80.0-98.0) fL MCH (27.0-32.0) pg MCHC (31.0-37.0) g/dL RDW Std Deviation (28.0-62.0) fl RDW Coeff of Yonas (11.0-15.0) % Plt Count (150-400) K/uL MPV (7.40-12.00) fL Neut % (Auto) (48.0-80.0) % Lymph % (Auto) (16.0-40.0) % [place] % (Auto) (0.0-15.0) % Eos % (Auto) (0.0-7.0) % Baso % (Auto) (0.0-1.5) % Neut # (Auto) (1.4-5.7) K/uL Lymph # (Auto) (0.6-2.4) K/uL [place] # (Auto) (0.0-0.8) K/uL Eos # (Auto) (0.0-0.7) K/uL Baso # (Auto) (0.0-0.1) K/uL Nucleated RBC % /100WBC Nucleated RBCs # K/uL Lactate (0.20-2.00) mmol/L Sodium 131 L (136-145) mmol/L Potassium 3.8 (3.5-5.1) mmol/L Chloride 98 (98-107) mmol/L Carbon Dioxide 24.2 (21.0-32.0) mmol/L BUN 5 L (7.0-18.0) mg/dL Creatinine 0.7 (0.6-1.0) mg/dL Est Cr Clr Drug Dosing 63.64 mL/min Estimated GFR (MDRD) > 60.0 ml/min Glucose 110 H (74-106) mg/dL POC Glucose 86 (60-110) mg/dL Calcium 8.6 (8.5-10.1) mg/dL Phosphorus 2.8 (2.6-4.7) mg/dL Magnesium 1.4 L (1.8-2.4) mg/dL Total Bilirubin (0.2-1.0) mg/dL AST (15-37) IU/L ALT (14-63) IU/L Alkaline Phosphatase (46-116) U/L Troponin I (0.000-0.056) ng/mL Total Protein (6.4-8.2) g/dL Albumin (3.4-5.0) g/dL Globulin (2.6-4.0) g/dL Albumin/Globulin Ratio (0.9-1.6) Lipase (73-393) U/L Urine Color Urine Appearance Urine pH (5.0-8.0) Ur Specific [place] (1.001-1.035) Urine Protein (NEGATIVE) mg/dL Urine Glucose (UA) (NEGATIVE) mg/dL Urine Ketones (NEGATIVE) mg/dL Urine Occult Blood (NEGATIVE) Urine Nitrite (NEGATIVE) Urine Bilirubin (NEGATIVE) Urine Urobilinogen (<2.0) EU/dL Ur Leukocyte Esterase (NEGATIVE) Ur Random Creatinine mg/dL Ur Random Potassium mmol/L Digoxin (0.9-2.0) ng/mL COVID-19 (JOSAFAT) (NEGATIVE) 10/04/19 Range/Units 11:31 WBC (4.0-11.0) K/uL RBC (4.30-5.90) M/uL Hgb (12.0-16.0) g/dL Hct (36.0-46.0) % MCV (80.0-98.0) fL MCH (27.0-32.0) pg MCHC (31.0-37.0) g/dL RDW Std Deviation (28.0-62.0) fl RDW Coeff of Yonas (11.0-15.0) % Plt Count (150-400) K/uL MPV (7.40-12.00) fL Neut % (Auto) (48.0-80.0) % Lymph % (Auto) (16.0-40.0) % [place] % (Auto) (0.0-15.0) % Eos % (Auto) (0.0-7.0) % Baso % (Auto) (0.0-1.5) % Neut # (Auto) (1.4-5.7) K/uL Lymph # (Auto) (0.6-2.4) K/uL [place] # (Auto) (0.0-0.8) K/uL Eos # (Auto) (0.0-0.7) K/uL Baso # (Auto) (0.0-0.1) K/uL Nucleated RBC % /100WBC Nucleated RBCs # K/uL Lactate (0.20-2.00) mmol/L Sodium (136-145) mmol/L Potassium (3.5-5.1) mmol/L Chloride (98-107) mmol/L Carbon Dioxide (21.0-32.0) mmol/L BUN (7.0-18.0) mg/dL Creatinine (0.6-1.0) mg/dL Est Cr Clr Drug Dosing mL/min Estimated GFR (MDRD) ml/min Glucose (74-106) mg/dL POC Glucose 104 (60-110) mg/dL Calcium (8.5-10.1) mg/dL Phosphorus (2.6-4.7) mg/dL Magnesium (1.8-2.4) mg/dL Total Bilirubin (0.2-1.0) mg/dL AST (15-37) IU/L ALT (14-63) IU/L Alkaline Phosphatase (46-116) U/L Troponin I (0.000-0.056) ng/mL Total Protein (6.4-8.2) g/dL Albumin (3.4-5.0) g/dL Globulin (2.6-4.0) g/dL Albumin/Globulin Ratio (0.9-1.6) Lipase (73-393) U/L Urine Color Urine Appearance Urine pH (5.0-8.0) Ur Specific [place] (1.001-1.035) Urine Protein (NEGATIVE) mg/dL Urine Glucose (UA) (NEGATIVE) mg/dL Urine Ketones (NEGATIVE) mg/dL Urine Occult Blood (NEGATIVE) Urine Nitrite (NEGATIVE) Urine Bilirubin (NEGATIVE) Urine Urobilinogen (<2.0) EU/dL Ur Leukocyte Esterase (NEGATIVE) Ur Random Creatinine mg/dL Ur Random Potassium mmol/L Digoxin (0.9-2.0) ng/mL COVID-19 (JOSAFAT) (NEGATIVE) Sadiq Results Last 24 Hours: Microbiology 10/03/19 18:16 Anaerobic Blood Culture - Final Blood - Venous - Lab Draw Med Orders - Current: Current Medications Albuterol/Ipratropium (Duoneb 3.0-0.5 Mg/3 Ml) 3 ml NEB Q4HRRT PRN PRN Reason: Shortness Of Breath/wheezing Atorvastatin Calcium (Lipitor) 20 mg PO BEDTIME [facility] Last Admin: 10/03/19 22:21 Dose: 20 mg Documented by: Digoxin (Lanoxin) 250 mcg PO DAILY [facility] Last Admin: 10/04/19 10:04 Dose: Not Given Documented by: Diltiazem HCl (Cardizem Cd) 240 mg PO DAILY [facility] Last Admin: 10/04/19 09:59 Dose: 240 mg Documented by: Gabapentin (Neurontin) 900 mg PO TID [facility] Last Admin: 10/04/19 06:49 Dose: 900 mg Documented by: Sodium Chloride (Normal Saline) 1,000 mls @ 125 mls/hr IV ASDIRECTED [facility] Last Admin: 10/04/19 04:41 Dose: 125 mls/hr Documented by: Insulin Aspart (Novolog) 0 unit SUBCUT TIDAC [facility]; Protocol Last Admin: 10/04/19 12:23 Dose: Not Given Documented by: Nitroglycerin (Nitrostat) 0.4 mg SL ASDIRECTED PRN PRN Reason: Chest Pain Ondansetron HCl (Zofran) 4 mg IVPUSH Q4H PRN PRN Reason: Nausea/Vomiting Last Admin: 10/04/19 04:49 Dose: 4 mg Documented by: Fish Oil/Dha/Epa [ (Fish Oil 1,200 Mg]) 1 each PO DAILY [facility] Last Admin: 10/04/19 10:03 Dose: Not Given Documented by: Rivaroxaban (Xarelto) 15 mg PO BEDTIME [facility] Last Admin: 10/03/19 22:21 Dose: 15 mg Documented by: Sodium Chloride (Saline Flush) 10 ml FLUSH ASDIRECTED PRN PRN Reason: Keep Vein Open Last Admin: 10/03/19 17:38 Dose: 10 ml Documented by: Sodium Chloride (Saline Flush) 2.5 ml FLUSH ASDIRECTED PRN PRN Reason: Keep Vein Open Last Admin: 10/03/19 17:38 Dose: 2.5 ml Documented by: Trazodone HCl (Trazodone) 125 mg PO BEDTIME [facility]ILFREDO Last Admin: 10/04/19 00:28 Dose: 125 mg Documented by: Discontinued Medications Sodium Chloride (Normal Saline) 1,000 mls @ 999 mls/hr IV .Bolus ONE Stop: 10/03/19 18:47 Last Admin: 10/03/19 18:06 Dose: 999 mls/hr Documented by: Magnesium Sulfate 2 gm/ Premix 50 mls @ 50 mls/hr IV ONETIME ONE Stop: 10/04/19 10:49 Last Admin: 10/04/19 10:45 Dose: 50 mls/hr Documented by: Ondansetron HCl (Zofran) 4 mg IVPUSH ONETIME ONE Stop: 10/03/19 17:30 Last Admin: 10/03/19 17:38 Dose: 4 mg Documented by: Promethazine HCl (Phenergan) 12.5 mg IM ONETIME ONE Stop: 10/03/19 22:37 Last Admin: 10/04/19 00:28 Dose: 12.5 mg Documented by: Rivaroxaban (Xarelto) 15 mg PO DAILY [facility]FRED[facility] Trazodone HCl (Trazodone) 125 mg PO BEDTIME [facility]ILFREDO - Exam General: Alert, Oriented Lungs: Clear to Auscultation Cardiovascular: Regular Rate, Regular Rhythm GI/Abdominal Exam: Normal Bowel Sounds, Soft, Non-Tender Skin: Warm, Intact Sepsis Event Note - Evaluation Sepsis Screening Result: No Definite Risk - Focused Exam Vital Signs: Vital Signs Temp Pulse Pulse Resp BP BP Pulse Ox 10/04/19 11:00 36.2 C 51 L 16 110/62 95 10/04/19 09:59 50 L 130/67 10/04/19 09:40 130/67 10/04/19 07:00 36.4 C 59 L 16 121/58 L 96 10/04/19 04:34 36.3 C 59 L 16 120/59 L 93 L Date Exam was Performed: 10/04/19 Time Exam was Performed: 12:47 - Problem List Review Problem List Initiated/Reviewed/Updated: Yes - My Orders Last 24 Hours: My Active Orders 10/03/19 19:24 Ambulate [RC] ASDIRECTED Oxygen Therapy [RC] PRN Pulse Oximetry [RC] PRN VTE/DVT Education [RC] PER UNIT ROUTINE Vital Signs [RC] Q4H Albuterol/Ipratropium [DuoNeb 3.0-0.5 MG/3 ML] 3 ml NEB Q4HRRT PRN Ondansetron [Zofran] 4 mg IVPUSH Q4H PRN 10/03/19 19:25 Sequential Compression Device [OM.PC] Per Unit Routine 10/03/19 19:26 Antiembolic Devices [RC] PER UNIT ROUTINE RT Aerosol Therapy [RC] ASDIRECTED 10/03/19 19:30 Sodium Chloride 0.9% [Normal Saline] 1,000 ml IV ASDIRECTED 10/03/19 19:35 Telemetry Monitoring [Cardiac Monitoring] [RC] Q8H Nitroglycerin [Nitrostat] 0.4 mg SL ASDIRECTED PRN 10/03/19 21:00 atorvaSTATin [Lipitor] 20 mg PO BEDTIME traZODone 125 mg PO BEDTIME 10/03/19 21:30 Rivaroxaban [Xarelto] 15 mg PO BEDTIME 10/03/19 22:00 Gabapentin [Neurontin] 900 mg PO TID 10/04/19 07:30 Insulin Aspart [NovoLOG] See Protocol SUBCUT TIDAC 10/04/19 09:00 Digoxin [Lanoxin] 250 mcg PO DAILY Diltiazem [Cardizem CD] 240 mg PO DAILY Patient's Own Medication [Ptom] 1 each PO DAILY 10/04/19 Lunch Soft Diet [DIET] - Plan Plan:: 84 y/o F admitted for hypovolemic hyponatremia, likely due to her hctz use and diarrhea on top on that Na is improving with IVFs Resume home meds, hold HCTZ Bradycardia on tele, high 50s mostly, will hold digoxin today, may need to decrease dose of Dig upon dc Diarrhea has improved Cardiac diet SCD for dvt ppx Encourage Out of bed to chair,
[2019-10-04] MEDS: Lactated Ringers 1,000 ML IV SCH (15:05)
[2019-10-04] MEDS ORDERED: Calcium Carbonate 500 MG Tab.Chew PO PRN (20:21)
[2019-10-04] MEDS: Rivaroxaban 15 MG Tab PO SCH (20:39)
[2019-10-04] MEDS: atorvaSTATin 20 MG Tab PO SCH (20:39)
[2019-10-04] MEDS ORDERED: traZODone 50 MG Tab PO SCH (21:00)
[2019-10-05] MEDS: Lactated Ringers 1,000 ML IV SCH (01:16)
[2019-10-05] MEDS: Gabapentin 300 MG Cap PO SCH ×2 (06:24→14:41)
[2019-10-05 06:25] LABS: BLOOD UREA NITROGEN,BUN 7 mg/dL (7.0-18.0); CARBON DIOXIDE,CO2 28.6 mmol/L (21.0-32.0); CHLORIDE,CL 103 mmol/L (98-107); GLUCOSE RANDOM 99 mg/dL (74-106); POTASSIUM,K 3.8 mmol/L (3.5-5.1); SODIUM,NA 137 mmol/L (136-145)
[2019-10-05] MEDS: Insulin Aspart 100 Units/ML 3 ML Pen SUBCUT SCH ×2 (07:38→12:44)
[2019-10-05] MEDS: EPA PO SCH (08:05)
[2019-10-05] MEDS: FISH OIL PO SCH (08:05)
[2019-10-05] MEDS: DHA PO SCH (08:05)
[2019-10-05] MEDS ORDERED: Magnesium Sulfate/Water 4 GM in Premix Bag 1 BAG IV ONE (09:07)
--- NOTE | 2019-10-05 11:56 | PCM.DCSUM1 ---
Discharge Summary - Hospital Course Free Text/Narrative:: 84-year-old female with HTN, HLD, CAD A. fib on digoxin and Xarelto as well as constipation, presenting with abdominal discomfort, nausea and vomiting. Patient reports that her symptoms started 6 days ago with nausea and mild generalized abdominal discomfort. She saw her primary care doctor who diagnosed her with a bladder infection and started on Bactrim, Abdominal x-ray showed constipation and she was started on a laxative. She was seen in this emergency room 2 days ago for similar symptoms. Lab work showed hyponatremia to 121 but she had normal mentation, CT abdomen pelvis was done which showed no acute pathology patient was subsequently discharged home. Patient states that today she had severe nausea, 2 episodes of small vomiting, she also had several watery bowel movements after she took several laxatives for past few days. She denies fevers, cough or shortness of breath no chest pain no vertigo. Today's lab work was significant for worsening Hyponatremia, and elevated lactic acid, received 1L of IV NS in ER. patient was NOT in sepsis,no leucocytosis, no fever, NEHEMIAS stable. Patient was admitted for further management of her hyponatremia and abdominal pain. Patient was started on IV fluids, IV Zofran, IV PPI, her Na slowly started to improve, her laxatives were held, her diarrhea and abdominal pain improved, she was found to be bradycardic, (known Afib), her rate control meds were held and her HR slowly improved, upon cardiology recs her Digoxin was stopped. patient HR was in high 50s to 60, her Na normalized, she was eating and drinking ok, she walked hallways safely without any dizziness or syncope or weakness. She was medically stable to me and recommended to fu with her PCP and cardiology. Her family was updated daily about her care. Diagnosis: Stroke: No - Discharge Data Discharge Date: 10/05/19 Discharge Disposition: Home, Self-Care 01 Condition: Stable - Referral to Home Health Primary Care Physician: Earle Terry MD - Patient Instructions Diet: Heart Healthy Diet Fluid Restriction: 2000 mL Activity: As Tolerated Showering/Bathing: July Shower Notify Provider of: Fever, Increased Pain, Swelling and Redness, Drainage, Nausea and/or Vomiting - Discharge Plan *PRESCRIPTION DRUG MONITORING PROGRAM REVIEWED*: Not Applicable *COPY OF PRESCRIPTION DRUG MONITORING REPORT IN PATIENT LIVIA: Not Applicable Home Medications: Home Meds Nateglinide 120 mg PO TIDAC 08/30/14 [History] atorvaSTATin [Lipitor] 20 mg PO BEDTIME 08/30/14 [History] metFORMIN HCl [Metformin ER Osmotic] 2,000 mg PO PCBREAKFAST 08/30/14 [History] Diltiazem [Cardizem CD] 240 mg PO BRK #30 cap.cd 10/20/14 [Rx] Fish Oil/DHA/EPA [Fish Oil 1,200 MG] 1 tab PO DAILY 06/10/17 [History] Gabapentin [Neurontin] 900 mg PO TID 06/10/17 [History] Losartan Potassium 25 mg PO BEDTIME 06/10/17 [History] aMILoride/Hydrochlorothiazide [Amiloride-HCTZ 5-50 MG] 0.5 tab PO DAILY 06/10/17 [History] traZODone HCl [Trazodone HCl] 150 mg PO BEDTIME 06/10/17 [History] Rivaroxaban [Xarelto] 15 mg PO DAILY 07/29/18 [History] Cyanocobalamin (Vitamin B12) [Vitamin B12] 1,000 mcg PO BID 10/01/19 [History] Nitroglycerin 0.4 mg SL ASDIRECTED PRN 10/01/19 [History] Vit A/Vit C/Vit E/Zinc/Copper [Preservision] 1 tab PO BID 10/01/19 [History] Acetaminophen [Tylenol Extra Strength] 1 - 2 tab PO Q6H PRN 10/03/19 [History] Patient Handouts: Heart-Healthy Eating Plan, [id number], DASH Eating Plan, Dehydration, Adult, [id number] Referrals: Earle Terry MD [Primary Care Provider] - 10/11/19 10:45 am (Please arrive 15 minutes early with your insurance cards and identification cards. Please bring your own facemask to appointment.) - Discharge Summary/Plan Comment DC Time >30 min.: No - Patient Data Vitals - Most Recent: Last Vital Signs Temp 36.1 C 10/05/19 08:00 Pulse 57 L 10/05/19 08:00 Resp 12 10/05/19 08:00 BP 117/62 10/05/19 08:00 Pulse Ox 93 L 10/05/19 08:00 Weight - Most Recent: 73.936 kg I&O - Last 24 hours: Intake & Output 10/04/19 10/05/19 10/05/19 22:59 06:59 14:59 Intake Total 597 550 220 Output Total 4350 900 Balance -1253 -350 220 Lab Results - Last 24 hrs: Laboratory Results - last 24 hr 10/03/19 10/03/19 10/03/19 Range/Units 18:16 19:10 22:56 WBC (4.0-11.0) K/uL RBC (4.30-5.90) M/uL Hgb (12.0-16.0) g/dL Hct (36.0-46.0) % MCV (80.0-98.0) fL MCH (27.0-32.0) pg MCHC (31.0-37.0) g/dL RDW Std Deviation (28.0-62.0) fl RDW Coeff of Yonas (11.0-15.0) % Plt Count (150-400) K/uL MPV (7.40-12.00) fL Neut % (Auto) (48.0-80.0) % Lymph % (Auto) (16.0-40.0) % Wirt % (Auto) (0.0-15.0) % Eos % (Auto) (0.0-7.0) % Baso % (Auto) (0.0-1.5) % Neut # (Auto) (1.4-5.7) K/uL Lymph # (Auto) (0.6-2.4) K/uL Wirt # (Auto) (0.0-0.8) K/uL Eos # (Auto) (0.0-0.7) K/uL Baso # (Auto) (0.0-0.1) K/uL Nucleated RBC % /100WBC Nucleated RBCs # K/uL Sodium (136-145) mmol/L Potassium (3.5-5.1) mmol/L Chloride (98-107) mmol/L Carbon Dioxide (21.0-32.0) mmol/L BUN (7.0-18.0) mg/dL Creatinine (0.6-1.0) mg/dL Est Cr Clr Drug Dosing mL/min Estimated GFR (MDRD) ml/min Glucose (74-106) mg/dL POC Glucose (60-110) mg/dL Serum Osmolality 250 L (275-295) mosm/kg Calcium (8.5-10.1) mg/dL Phosphorus (2.6-4.7) mg/dL Magnesium (1.8-2.4) mg/dL Procalcitonin <0.05 (<0.10) ng/mL Urine Osmolality 162 L (300-900) mosm/kg 10/04/19 10/05/19 10/05/19 Range/Units 17:01 05:48 05:48 WBC 4.18 (4.0-11.0) K/uL RBC 3.55 L (4.30-5.90) M/uL Hgb 10.6 L (12.0-16.0) g/dL Hct 31.3 L (36.0-46.0) % MCV 88.2 (80.0-98.0) fL MCH 29.9 (27.0-32.0) pg MCHC 33.9 (31.0-37.0) g/dL RDW Std Deviation 47.5 (28.0-62.0) fl RDW Coeff of Yonas 15 (11.0-15.0) % Plt Count 148 L (150-400) K/uL MPV 10.10 (7.40-12.00) fL Neut % (Auto) 66.5 (48.0-80.0) % Lymph % (Auto) 21.8 (16.0-40.0) % Wirt % (Auto) 10.3 (0.0-15.0) % Eos % (Auto) 1.2 (0.0-7.0) % Baso % (Auto) 0.2 (0.0-1.5) % Neut # (Auto) 2.8 (1.4-5.7) K/uL Lymph # (Auto) 0.9 (0.6-2.4) K/uL Wirt # (Auto) 0.4 (0.0-0.8) K/uL Eos # (Auto) 0.1 (0.0-0.7) K/uL Baso # (Auto) 0.0 (0.0-0.1) K/uL Nucleated RBC % 0.0 /100WBC Nucleated RBCs # 0 K/uL Sodium 137 (136-145) mmol/L Potassium 3.8 (3.5-5.1) mmol/L Chloride 103 (98-107) mmol/L Carbon Dioxide 28.6 (21.0-32.0) mmol/L BUN 7 (7.0-18.0) mg/dL Creatinine 0.7 (0.6-1.0) mg/dL Est Cr Clr Drug Dosing 63.64 mL/min Estimated GFR (MDRD) > 60.0 ml/min Glucose 99 (74-106) mg/dL POC Glucose 126 H (60-110) mg/dL Serum Osmolality (275-295) mosm/kg Calcium 8.7 (8.5-10.1) mg/dL Phosphorus 2.9 (2.6-4.7) mg/dL Magnesium 1.6 L (1.8-2.4) mg/dL Procalcitonin (<0.10) ng/mL Urine Osmolality (300-900) mosm/kg 10/05/19 10/05/19 Range/Units 06:27 11:17 WBC (4.0-11.0) K/uL RBC (4.30-5.90) M/uL Hgb (12.0-16.0) g/dL Hct (36.0-46.0) % MCV (80.0-98.0) fL MCH (27.0-32.0) pg MCHC (31.0-37.0) g/dL RDW Std Deviation (28.0-62.0) fl RDW Coeff of Yonas (11.0-15.0) % Plt Count (150-400) K/uL MPV (7.40-12.00) fL Neut % (Auto) (48.0-80.0) % Lymph % (Auto) (16.0-40.0) % Wirt % (Auto) (0.0-15.0) % Eos % (Auto) (0.0-7.0) % Baso % (Auto) (0.0-1.5) % Neut # (Auto) (1.4-5.7) K/uL Lymph # (Auto) (0.6-2.4) K/uL Wirt # (Auto) (0.0-0.8) K/uL Eos # (Auto) (0.0-0.7) K/uL Baso # (Auto) (0.0-0.1) K/uL Nucleated RBC % /100WBC Nucleated RBCs # K/uL Sodium (136-145) mmol/L Potassium (3.5-5.1) mmol/L Chloride (98-107) mmol/L Carbon Dioxide (21.0-32.0) mmol/L BUN (7.0-18.0) mg/dL Creatinine (0.6-1.0) mg/dL Est Cr Clr Drug Dosing mL/min Estimated GFR (MDRD) ml/min Glucose (74-106) mg/dL POC Glucose 96 243 H (60-110) mg/dL Serum Osmolality (275-295) mosm/kg Calcium (8.5-10.1) mg/dL Phosphorus (2.6-4.7) mg/dL Magnesium (1.8-2.4) mg/dL Procalcitonin (<0.10) ng/mL Urine Osmolality (300-900) mosm/kg VALENTÍN Results - Last 24 hrs: Microbiology 10/03/19 18:16 Aerobic Blood Culture - Preliminary Blood - Venous - Lab Draw NO GROWTH AFTER 1 DAY Anaerobic Blood Culture - Final 10/03/19 18:08 Aerobic Blood Culture - Preliminary Blood - Venous NO GROWTH AFTER 1 DAY Anaerobic Blood Culture - Preliminary NO GROWTH AFTER 1 DAY Med Orders - Current: Current Medications Albuterol/Ipratropium (Duoneb 3.0-0.5 Mg/3 Ml) 3 ml NEB Q4HRRT PRN PRN Reason: Shortness Of Breath/wheezing Atorvastatin Calcium (Lipitor) 20 mg PO BEDTIME [facility] Last Admin: 10/04/19 20:39 Dose: 20 mg Documented by: Calcium Carbonate/Glycine (Tums) 500 mg PO Q4H PRN PRN Reason: Heartburn Gabapentin (Neurontin) 900 mg PO TID [facility] Last Admin: 10/05/19 06:24 Dose: 900 mg Documented by: Insulin Aspart (Novolog) 0 unit SUBCUT TIDAC [facility]; Protocol Last Admin: 10/05/19 07:38 Dose: Not Given Documented by: Nitroglycerin (Nitrostat) 0.4 mg SL ASDIRECTED PRN PRN Reason: Chest Pain Ondansetron HCl (Zofran) 4 mg IVPUSH Q4H PRN PRN Reason: Nausea/Vomiting Last Admin: 10/04/19 04:49 Dose: 4 mg Documented by: Fish Oil/Dha/Epa [ (Fish Oil 1,200 Mg]) 1 each PO DAILY [facility] Last Admin: 10/05/19 08:05 Dose: Not Given Documented by: Rivaroxaban (Xarelto) 15 mg PO BEDTIME [facility] Last Admin: 10/04/19 20:39 Dose: 15 mg Documented by: Sodium Chloride (Saline Flush) 10 ml FLUSH ASDIRECTED PRN PRN Reason: Keep Vein Open Last Admin: 10/03/19 17:38 Dose: 10 ml Documented by: Sodium Chloride (Saline Flush) 2.5 ml FLUSH ASDIRECTED PRN PRN Reason: Keep Vein Open Last Admin: 10/03/19 17:38 Dose: 2.5 ml Documented by: Trazodone HCl (Trazodone) 125 mg PO BEDTIME [facility] Last Admin: 10/04/19 23:08 Dose: 125 mg Documented by: Discontinued Medications Digoxin (Lanoxin) 250 mcg PO DAILY [facility] Last Admin: 10/04/19 10:04 Dose: Not Given Documented by: Diltiazem HCl (Cardizem Cd) 240 mg PO DAILY [facility] Last Admin: 10/04/19 09:59 Dose: 240 mg Documented by: Sodium Chloride (Normal Saline) 1,000 mls @ 999 mls/hr IV .Bolus ONE Stop: 10/03/19 18:47 Last Admin: 10/03/19 18:06 Dose: 999 mls/hr Documented by: Sodium Chloride (Normal Saline) 1,000 mls @ 125 mls/hr IV ASDIRECTED [facility] Last Admin: 10/04/19 04:41 Dose: 125 mls/hr Documented by: Magnesium Sulfate 2 gm/ Premix 50 mls @ 50 mls/hr IV ONETIME ONE Stop: 10/04/19 10:49 Last Admin: 10/04/19 10:45 Dose: 50 mls/hr Documented by: Lactated Ringer's (Ringers, Lactated) 1,000 mls @ 100 mls/hr IV ASDIRECTED [facility] Last Admin: 10/05/19 01:16 Dose: 100 mls/hr Documented by: Magnesium Sulfate 4 gm/ Premix 100 mls @ 50 mls/hr IV ONETIME ONE Stop: 10/05/19 11:06 Last Admin: 10/05/19 09:40 Dose: 50 mls/hr Documented by: Ondansetron HCl (Zofran) 4 mg IVPUSH ONETIME ONE Stop: 10/03/19 17:30 Last Admin: 10/03/19 17:38 Dose: 4 mg Documented by: Promethazine HCl (Phenergan) 12.5 mg IM ONETIME ONE Stop: 10/03/19 22:37 Last Admin: 10/04/19 00:28 Dose: 12.5 mg Documented by: Rivaroxaban (Xarelto) 15 mg PO DAILY [facility]O Trazodone HCl (Trazodone) 125 mg PO BEDTIME [facility]
[2019-10-05 12:31] VITALS: BP 108/40; PULSE 55
== END 2019-10-05 15:31 | disposition home or self-care (01) | DRG 641 ==
LOC: MW.ED 17:04 → MW.MS 18:38
PROVIDERS: ADMIT Student in an Organized Health Care Education/Training Program; ATTEND Student in an Organized Health Care Education/Training Program
DX: E87.1 Hypo-osmolality and hyponatremia (principal); N39.0 Urinary tract infection, site not specified; E86.1 Hypovolemia; H35.3190 Nonexudative age-related macular degeneration, unspecified eye, stage unspecified; H54.7 Unspecified visual loss; H91.91 Unspecified hearing loss, right ear; T50.2X5A Adverse effect of carbonic-anhydrase inhibitors, benzothiadiazides and other diuretics, initial encounter; I25.10 Atherosclerotic heart disease of native coronary artery without angina pectoris; K59.00 Constipation, unspecified; I48.91 Unspecified atrial fibrillation; Z20.828 Contact with and (suspected) exposure to other viral communicable diseases; E78.00 Pure hypercholesterolemia, unspecified; M19.90 Unspecified osteoarthritis, unspecified site; E11.40 Type 2 diabetes mellitus with diabetic neuropathy, unspecified; M54.9 Dorsalgia, unspecified; Z98.49 Cataract extraction status, unspecified eye; Z96.653 Presence of artificial knee joint, bilateral; Z88.6 Allergy status to analgesic agent; Z91.048 Other nonmedicinal substance allergy status; G89.29 Other chronic pain; E11.42 Type 2 diabetes mellitus with diabetic polyneuropathy; F41.9 Anxiety disorder, unspecified; I10 Essential (primary) hypertension; Z79.01 Long term (current) use of anticoagulants; Z90.710 Acquired absence of both cervix and uterus; Z79.84 Long term (current) use of oral hypoglycemic drugs; Z79.899 Other long term (current) drug therapy; Z88.5 Allergy status to narcotic agent; Z88.8 Allergy status to other drugs, medicaments and biological substances
CPT/HCPCS: 36415; 71046; 80053; 80162; 83605; 83690; 84145; 84295; 84484; 85025; 87040 ×2; 96374; 99285; J2405; J7030; U0002; 80048; 81003; 82570; 82962; 83735; 83930; 83935; 84100; 84133; 93005; 99284; A9270-GY; J2550; J3475; J7120

== ENCOUNTER 2019-10-13 14:41 | Observation (INO) | payer MEDICARE, BC, OTHER ==
[2019-10-13] MEDS ORDERED: Sodium Chloride 0.9% 10 ML Syringe FLUSH PRN (14:43)
[2019-10-13] MEDS ORDERED: Sodium Chloride 0.9% 2.5 ML Syringe FLUSH PRN (14:43)
--- NOTE | 2019-10-13 15:00 | EDM.PDOC ---
ED HPI GENERAL MEDICAL PROBLEM - General Chief Complaint: Abdominal Pain Stated Complaint: STOMACH PAIN Time Seen by Provider: 10/13/19 14:43 Source of Information: Reports: Patient History Limitations: Reports: No Limitations - History of Present Illness INITIAL COMMENTS - FREE TEXT/NARRATIVE: 84-year-old female with history of small bowel obstruction, diabetes, A. fib, HTN, HLD, CHF, appendectomy, hysterectomy, cholecystectomy presents with diffuse abdominal pain since yesterday, described as mild, aching sensation, constant, nonradiating, no alleviating or exacerbating factors. Associated with nausea, loose stools. She denies fever, chills, chest pain, short of breath, dysuria, urinary frequency, vomiting. ROS: A 10-point review of systems, other than pertinent positives and negatives as stated per HPI, is otherwise negative Past medical history: SBO, A. fib, diabetes, CHF Past Surgical history: No additional pertinent history Social history: No additional pertinent history Family history: No additional pertinent history PHYSICAL EXAM General: AOx4, GCS = 15, No distress HEENT: dry mucous membrane Neck: supple, no meningismus, no Kernig or Brudzinski Cardiac: S1S2 RRR Respiratory: CTAB, no crackles or rales, no wheezing Abdomen: Soft, mild tenderness diffusely, no rebound or guarding, nondistended, no pulsatile mass. Back: nontender Musculoskeletal: NVI distally, no deformity Neuro: No focal deficits - Related Data Allergies Allergy/AdvReac Type Severity Reaction Status Date / Time fentanyl Allergy Hallucinati Verified 10/14/19 06:44 ons oxycodone Allergy Stomach Verified 10/14/19 06:44 Upset perfumes Allergy Intermediate Headache Uncoded 10/14/19 06:44 Home Meds: Home Meds Nateglinide 120 mg PO TIDAC 08/30/14 [History] atorvaSTATin [Lipitor] 20 mg PO BEDTIME 08/30/14 [History] metFORMIN HCl [Metformin ER Osmotic] 2,000 mg PO PCBREAKFAST 08/30/14 [History] Diltiazem [Cardizem CD] 240 mg PO BRK #30 cap.cd 10/20/14 [Rx] Fish Oil/DHA/EPA [Fish Oil 1,200 MG] 1 tab PO DAILY 06/10/17 [History] Gabapentin [Neurontin] 900 mg PO TID 06/10/17 [History] Losartan Potassium 25 mg PO BEDTIME 06/10/17 [History] traZODone HCl [Trazodone HCl] 150 mg PO BEDTIME 06/10/17 [History] Rivaroxaban [Xarelto] 15 mg PO DAILY 07/29/18 [History] Cyanocobalamin (Vitamin B12) [Vitamin B12] 1,000 mcg PO BID 10/01/19 [History] Nitroglycerin 0.4 mg SL ASDIRECTED PRN 10/01/19 [History] Vit A/Vit C/Vit E/Zinc/Copper [Preservision] 1 tab PO BID 10/01/19 [History] Acetaminophen [Tylenol Extra Strength] 1 - 2 tab PO Q6H PRN 10/03/19 [History] Ciprofloxacin [Ciprofloxacin HCl] 250 mg PO BID #5 tablet 10/15/19 [Rx] Past Medical History HEENT History: Reports: Macular Degeneration Other HEENT History: wears glasses, rt hearing aid, "slow dry macular degeneration" Cardiovascular History: Reports: Afib, High Cholesterol, Hypertension Other Cardiovascular History: remote svt Respiratory History: Reports: None Gastrointestinal History: Reports: Hemorrhoids Genitourinary History: Reports: None PATIENT CARE SPECIALIST History: Reports: Musculoskeletal History: Reports: Arthritis, Back Pain, Chronic Other Musculoskeletal History: rt shoulder pain, steroid injections in tail bone and shoulder Neurological History: Reports: Neuropathy, Diabetic Other Neuro History: degenerative disc disease, hx of motion sickness Psychiatric History: Reports: Anxiety Endocrine/Metabolic History: Reports: Diabetes, Type II Hematologic History: Reports: Anticoagulation Therapy, Blood Transfusion(s) Other Hematologic History: hx of blood transfusion with hysterectomy Immunologic History: Reports: None Oncologic (Cancer) History: Reports: None Other Oncologic History: supposed to have cut off on 10/01 Dermatologic History: Reports: None - Infectious Disease History Infectious Disease History: Reports: Chicken Pox, Measles - Past Surgical History Head Surgeries/Procedures: Reports: None HEENT Surgical History: Reports: Adenoidectomy, Cataract Surgery, Tonsillectomy Cardiovascular Surgical History: Reports: None Respiratory Surgical History: Reports: None GI Surgical History: Reports: None Female Surgical History: Reports: Hysterectomy, Salpingo-Oophorectomy, Tubal Ligation Endocrine Surgical History: Reports: None Neurological Surgical History: Reports: None Musculoskeletal Surgical History: Reports: Knee Replacement Other Musculoskeletal Surgeries/Procedures:: both knees replacement Oncologic Surgical History: Reports: None Dermatological Surgical History: Reports: None Social & Family History - Family History Family Medical History: Noncontributory - Caffeine Use Caffeine Use: Reports: None ED ROS GENERAL - Review of Systems Review Of Systems: Comprehensive ROS is negative, except as noted in HPI. ED EXAM, GENERAL - Physical Exam Exam: See Below (see dictation) EKG INTERPRETATION EKG Interpretation Comments: 69 Bpm, Afib, normal QRS interval, no STEMI. EKG and rhythm strip interpreted by me at 1500 Course - Vital Signs Last Recorded V/S: Last Vital Signs Temp 97 F 10/15/19 11:45 Pulse 51 L 10/15/19 11:45 Resp 16 10/15/19 03:41 BP 111/59 L 10/15/19 11:45 Pulse Ox 94 L 10/15/19 11:45 - Orders/Labs/Meds Labs: Laboratory Tests 10/13/19 10/13/19 10/13/19 Range/Units 15:10 15:10 15:10 WBC 6.13 (4.0-11.0) K/uL RBC 4.04 L (4.30-5.90) M/uL Hgb 11.9 L (12.0-16.0) g/dL Hct 34.9 L (36.0-46.0) % MCV 86.4 (80.0-98.0) fL MCH 29.5 (27.0-32.0) pg MCHC 34.1 (31.0-37.0) g/dL RDW Std Deviation 46.0 (28.0-62.0) fl RDW Coeff of Yonas 14 (11.0-15.0) % Plt Count 185 (150-400) K/uL MPV 9.90 (7.40-12.00) fL Neut % (Auto) 73.2 (48.0-80.0) % Lymph % (Auto) 15.5 L (16.0-40.0) % Heard % (Auto) 10.1 (0.0-15.0) % Eos % (Auto) 1.0 (0.0-7.0) % Baso % (Auto) 0.2 (0.0-1.5) % Neut # (Auto) 4.5 (1.4-5.7) K/uL Lymph # (Auto) 1.0 (0.6-2.4) K/uL Heard # (Auto) 0.6 (0.0-0.8) K/uL Eos # (Auto) 0.1 (0.0-0.7) K/uL Baso # (Auto) 0.0 (0.0-0.1) K/uL Nucleated RBC % 0.0 /100WBC Nucleated RBCs # 0 K/uL INR 1.04 APTT 28.4 (18.6-31.3) SEC Lactate (0.20-2.00) mmol/L Sodium 123 L (136-145) mmol/L Potassium 3.9 (3.5-5.1) mmol/L Chloride 88 L (98-107) mmol/L Carbon Dioxide 24.2 (21.0-32.0) mmol/L BUN 16 (7.0-18.0) mg/dL Creatinine 1.2 H (0.6-1.0) mg/dL Est Cr Clr Drug Dosing 37.12 mL/min Estimated GFR (MDRD) 42.9 ml/min Glucose 140 H (74-106) mg/dL Calcium 8.3 L (8.5-10.1) mg/dL Phosphorus 3.8 (2.6-4.7) mg/dL Magnesium 1.5 L (1.8-2.4) mg/dL Total Bilirubin 0.7 (0.2-1.0) mg/dL AST 15 (15-37) IU/L ALT 26 (14-63) IU/L Alkaline Phosphatase 52 (46-116) U/L Troponin I < 0.050 (0.000-0.056) ng/mL Total Protein 6.4 (6.4-8.2) g/dL Albumin 4.0 (3.4-5.0) g/dL Globulin 2.4 L (2.6-4.0) g/dL Albumin/Globulin Ratio 1.7 H (0.9-1.6) Lipase 214 (73-393) U/L Urine Color Urine Appearance Urine pH (5.0-8.0) Ur Specific [place] (1.001-1.035) Urine Protein (NEGATIVE) mg/dL Urine Glucose (UA) (NEGATIVE) mg/dL Urine Ketones (NEGATIVE) mg/dL Urine Occult Blood (NEGATIVE) Urine Nitrite (NEGATIVE) Urine Bilirubin (NEGATIVE) Urine Urobilinogen (<2.0) EU/dL Ur Leukocyte Esterase (NEGATIVE) Urine RBC (0-2/HPF) Urine WBC (0-5/HPF) Ur Epithelial Cells (NONE-FEW) Urine Bacteria (NEGATIVE) COVID-19 (JOSAFAT) (NEGATIVE) 10/13/19 10/13/19 10/13/19 Range/Units 15:10 15:35 16:45 WBC (4.0-11.0) K/uL RBC (4.30-5.90) M/uL Hgb (12.0-16.0) g/dL Hct (36.0-46.0) % MCV (80.0-98.0) fL MCH (27.0-32.0) pg MCHC (31.0-37.0) g/dL RDW Std Deviation (28.0-62.0) fl RDW Coeff of Yonas (11.0-15.0) % Plt Count (150-400) K/uL MPV (7.40-12.00) fL Neut % (Auto) (48.0-80.0) % Lymph % (Auto) (16.0-40.0) % Heard % (Auto) (0.0-15.0) % Eos % (Auto) (0.0-7.0) % Baso % (Auto) (0.0-1.5) % Neut # (Auto) (1.4-5.7) K/uL Lymph # (Auto) (0.6-2.4) K/uL Heard # (Auto) (0.0-0.8) K/uL Eos # (Auto) (0.0-0.7) K/uL Baso # (Auto) (0.0-0.1) K/uL Nucleated RBC % /100WBC Nucleated RBCs # K/uL INR APTT (18.6-31.3) SEC Lactate 3.0 H* (0.20-2.00) mmol/L Sodium (136-145) mmol/L Potassium (3.5-5.1) mmol/L Chloride (98-107) mmol/L Carbon Dioxide (21.0-32.0) mmol/L BUN (7.0-18.0) mg/dL Creatinine (0.6-1.0) mg/dL Est Cr Clr Drug Dosing mL/min Estimated GFR (MDRD) ml/min Glucose (74-106) mg/dL Calcium (8.5-10.1) mg/dL Phosphorus (2.6-4.7) mg/dL Magnesium (1.8-2.4) mg/dL Total Bilirubin (0.2-1.0) mg/dL AST (15-37) IU/L ALT (14-63) IU/L Alkaline Phosphatase (46-116) U/L Troponin I (0.000-0.056) ng/mL Total Protein (6.4-8.2) g/dL Albumin (3.4-5.0) g/dL Globulin (2.6-4.0) g/dL Albumin/Globulin Ratio (0.9-1.6) Lipase (73-393) U/L Urine Color YELLOW Urine Appearance CLEAR Urine pH 5.5 (5.0-8.0) Ur Specific [place] 1.010 (1.001-1.035) Urine Protein NEGATIVE (NEGATIVE) mg/dL Urine Glucose (UA) NEGATIVE (NEGATIVE) mg/dL Urine Ketones NEGATIVE (NEGATIVE) mg/dL Urine Occult Blood NEGATIVE (NEGATIVE) Urine Nitrite NEGATIVE (NEGATIVE) Urine Bilirubin NEGATIVE (NEGATIVE) Urine Urobilinogen 0.2 (<2.0) EU/dL Ur Leukocyte Esterase SMALL H (NEGATIVE) Urine RBC 0-1 (0-2/HPF) Urine WBC 2-3 (0-5/HPF) Ur Epithelial Cells OCCASIONAL (NONE-FEW) Urine Bacteria RARE (NEGATIVE) COVID-19 (JOSAFAT) NEGATIVE (NEGATIVE) Meds: Medications Discontinued Medications Generic Name Dose Route Start Last Admin Trade Name Freq PRN Reason Stop Dose Admin Acetaminophen 650 mg 10/13/19 18:36 Tylenol PO Q4H PRN Pain (Mild 1-3)/fever Al Hydroxide/Mg Hydroxide 30 ml 10/14/19 11:08 10/14/19 11:36 Mag-Al Plus PO 10/14/19 11:09 30 ml ONETIME ONE Administration Al Hydroxide/Mg Hydroxide 30 ml 10/14/19 12:22 Mag-Al Plus PO Q6H PRN Heartburn Albuterol 2.5 mg 10/13/19 18:36 Proventil Neb Soln NEB Q2H PRN Shortness Of Breath/wheezing Atorvastatin Calcium 20 mg 10/13/19 21:00 10/14/19 22:05 Lipitor PO 20 mg BEDTIME [facility]EDO Administration Bisacodyl 5 mg 10/13/19 18:36 Dulcolax PO DAILY PRN Constipation Ciprofloxacin 250 mg 10/15/19 09:00 10/15/19 08:07 Ciprofloxacin Hcl PO 250 mg BID [facility]O Administration Ciprofloxacin 250 mg 10/15/19 14:15 10/15/19 14:21 Ciprofloxacin Hcl PO 10/15/19 14:16 250 mg ONETIME ONE Administration Cyanocobalamin 1,000 mcg 10/15/19 09:00 10/15/19 08:09 Vitamin B12 PO 1,000 mcg BID [facility]EDO Administration Diltiazem HCl 240 mg 10/14/19 09:00 10/15/19 08:09 Cardizem Cd PO 240 mg DAILY [facility] Administration Gabapentin 900 mg 10/13/19 22:00 10/15/19 14:21 Neurontin PO 900 mg TID [facility]O Administration Hydralazine HCl 20 mg 10/13/19 23:29 Apresoline IVPUSH Q4H PRN Hypertension Lactated Ringer's 1,000 mls @ 999 mls/hr 10/13/19 15:27 10/13/19 15:32 Ringers, Lactated IV 10/13/19 16:27 999 mls/hr .BOLUS ONE Administration Lactated Ringer's 1,000 mls @ 125 mls/hr 10/13/19 18:45 10/14/19 06:12 Ringers, Lactated IV 125 mls/hr ASDIRECTED WILFREDO Administration Magnesium Sulfate 2 gm/ Premix 50 mls @ 50 mls/hr 10/13/19 23:27 10/13/19 23:35 IV 10/14/19 00:26 50 mls/hr ONETIME ONE Administration Magnesium Sulfate 2 gm/ Premix 50 mls @ 50 mls/hr 10/15/19 05:57 10/15/19 06:26 IV 10/15/19 06:56 50 mls/hr ONETIME ONE Administration Insulin Aspart 0 unit 10/14/19 09:00 10/15/19 12:24 Novolog SUBCUT 2 unit TIDAC [facility] Administration Protocol Iopamidol 100 ml 10/13/19 17:38 10/13/19 17:39 Isovue-370 (76%) IVPUSH 10/13/19 17:39 100 ml ONETIME ONE Administration Lorazepam 1 mg 10/14/19 11:24 10/14/19 11:37 Ativan PO 10/14/19 11:25 1 mg ONETIME ONE Administration Losartan Potassium 25 mg 10/14/19 21:00 10/14/19 22:04 Cozaar PO 25 mg BEDTIME [facility] Administration Nitroglycerin 0.4 mg 10/13/19 18:40 Nitrostat SL ASDIRECTED PRN Chest Pain Non-Formulary Medication 1,000 mcg 10/13/19 21:00 10/14/19 22:07 Cyanocobalamin (Vitamin B12) PO 1,000 mcg BID [facility] Administration Non-Formulary Medication 1 tab 10/14/19 09:00 10/15/19 08:07 Fish Oil/Dha/Epa [Fish Oil 1,200 Mg] PO Not Given DAILY [facility] Ondansetron HCl 4 mg 10/13/19 18:36 Zofran Odt PO Q4H PRN nausea, able to take PO Ondansetron HCl 4 mg 10/13/19 18:36 Zofran IVPUSH Q4H PRN Nausea/Vomiting Rivaroxaban 15 mg 10/14/19 09:00 Xarelto PO DAILY [facility] Rivaroxaban 15 mg 10/13/19 23:28 10/15/19 08:08 Xarelto PO 15 mg DAILY [facility] Administration Sodium Chloride 10 ml 10/13/19 14:43 Saline Flush FLUSH ASDIRECTED PRN Keep Vein Open Sodium Chloride 2.5 ml 10/13/19 14:43 Saline Flush FLUSH ASDIRECTED PRN Keep Vein Open Trazodone HCl 150 mg 10/13/19 21:00 10/14/19 22:05 Trazodone PO 150 mg BEDTIME [facility] Administration - Re-Assessments/Exams Free Text/Narrative Re-Assessment/Exam: 10/13/19 18:54 Case discussed with , who agrees to admit patient. The hospitalist's documentation supersedes all other documentation on this patient with regard to any conflicts or discrepancies from this point forward. Any emergency conditions have been treated to the ability of the ED prior to admission. Medical decision making: My differential diagnosis includes ileus, small bowel obstruction, hyponatremia, ileus. Her Na was 137 on 10/04, today it is 123. She is slightly confused. Will admit for medical management for hyponatremia. CTA performed for lactic acidosis Departure - Departure Time of Disposition: 03:50 Disposition: Refer to Observation Condition: Good Clinical Impression: Abdominal pain, Hyponatremia - Discharge Information *PRESCRIPTION DRUG MONITORING PROGRAM REVIEWED*: Not Applicable *COPY OF PRESCRIPTION DRUG MONITORING REPORT IN PATIENT LIVIA: Not Applicable
[2019-10-13] MEDS ORDERED: Lactated Ringers 1,000 ML IV ONE (15:27)
[2019-10-13 15:41] LABS: BLOOD UREA NITROGEN,BUN 16 mg/dL (7.0-18.0); CARBON DIOXIDE,CO2 24.2 mmol/L (21.0-32.0); CHLORIDE,CL 88 mmol/L (98-107); GLUCOSE RANDOM 140 mg/dL (74-106); LIPASE 214 U/L (73-393); POTASSIUM,K 3.9 mmol/L (3.5-5.1); SODIUM,NA 123 mmol/L (136-145)
--- NOTE | 2019-10-13 15:50 | CT ---
CT abdomen and pelvis Technique: Multiple axial sections were obtained from above the dome of the diaphragm inferiorly through the pubic symphysis. Intravenous contrast and oral contrast not utilized. Comparison: Prior CT abdomen and pelvis exam of 10/01/19. Findings: Visualized lung bases show nothing acute. Noncontrast appearance of the liver shows a small low density lesion within the inferior right lobe which is compatible with a small cyst. Spleen appears normal. Adrenal glands show no nodule. No discrete abnormality within the pancreas is appreciated. Small cystic area noted within the pancreatic tail measuring about 1.1 cm in size which is most likely benign given the patient's age. No additional pancreatic finding is seen. Aorta shows mild atherosclerotic calcification without aneurysm. No retroperitoneal adenopathy is seen. No mesenteric abnormalities are seen. No pelvic mass or adenopathy is seen. No free fluid or inflammatory change is seen. Scattered diverticuli within the colon are noted without findings of diverticulitis. Mild increased stool is seen throughout the colon. Appendix not visualized with certainty. Bone window settings were reviewed. Slight degenerative change is noted within the spine. Spine findings are most severe at L3-4 with severe disc space narrowing and vacuum phenomena. Impression: 1. Findings believed to be incidental as noted above. 2. Mild increased stool within the colon is seen. 3. Nothing acute is identified. No findings of small bowel obstruction. Diagnostic code #2 This report was dictated in MDT
[2019-10-13] MEDS ORDERED: Iopamidol 755 Mg/ML 100 ML Bottle IVPUSH ONE (17:38)
--- NOTE | 2019-10-13 18:13 | CT ---
CT abdomen and pelvis (with contrast) Technique: Multiple axial sections were obtained from above the dome of the diaphragm inferiorly through the pubic symphysis. Intravenous contrast was utilized. Study performed as an aortogram exam. Intravenous contrast therefore utilized in the arterial phase. Reconstructed coronal and sagittal images were obtained. Portal venous imaging was also obtained. Comparison: Previous noncontrast study performed earlier on the same day (3:28 PM). Findings: Aorta shows no aneurysm or dissection. Common iliac artery show no focal stenosis. External and internal iliac artery show no stenosis. There is normal flow into the common femoral arteries. Single right and left renal arteries are noted. No focal stenosis is seen within either renal artery. Celiac axis appears patent with no stenosis. Superior mesenteric artery is patent without stenosis. Inferior mesenteric artery is also patent. Other findings: Visualized lung bases show nothing acute. Cyst noted within the lower right lobe of the liver. Cystic lesion is noted within the pancreatic tail most likely benign. Adrenal glands show no nodule. Spleen shows no abnormality. Kidneys show symmetric contrast enhancement. No retroperitoneal adenopathy or mesenteric abnormalities are seen. No bowel dilatation or bowel wall thickening is seen. No pelvic mass or adenopathy is noted. No free fluid or inflammatory change is seen. Portal venous images shows normal opacification of the main portal vein and intrahepatic branches within the liver. Superior mesenteric vein is opacified. Bone window settings were reviewed which shows scattered degenerative change throughout the spine. Impression: 1. Aorta and branch vessels show no significant stenosis. Portal vein shows no evidence of thrombosis or occlusion. 2. Small liver cyst as well as cystic lesion within the pancreas believed to be benign. 3. Nothing acute is appreciated on CT study of the abdomen and pelvis performed as an aortogram exam. Diagnostic code #2 This report was dictated in MDT
[2019-10-13] MEDS ORDERED: Ondansetron 4 MG/2 ML SDV IVPUSH PRN (18:36)
[2019-10-13] MEDS ORDERED: Ondansetron 4 MG Tab.DIS PO PRN (18:36)
[2019-10-13] MEDS ORDERED: Acetaminophen 325 MG Tab PO PRN (18:36)
[2019-10-13] MEDS ORDERED: Albuterol 0.083% 2.5 MG/3 ML Neb Soln NEB PRN (18:36)
[2019-10-13] MEDS ORDERED: Bisacodyl 5 MG Tab PO PRN (18:36)
[2019-10-13] MEDS ORDERED: Nitroglycerin 0.4 MG Tab.SL SL PRN (18:40)
--- NOTE | 2019-10-13 18:45 | PCM.HP.2 ---
H&P History of Present Illness - General Date of Service: 10/13/19 Admit Problem/Dx: Admission Diagnosis/Problem Admission Diagnosis/Problem Hyponatremia - History of Present Illness Initial Comments - Free Text/Narative: 84-year-old female with history of small bowel obstruction, diabetes, A. fib, HTN, HLD, CHF, appendectomy, hysterectomy, cholecystectomy presents with mild diffuse abdominal pain since yesterday, constant, nonradiating in nature, no alleviating or exacerbating factors. Associated with nausea, some loose stools, no vomiting. She denies fever, chills, chest pain, short of breath, dysuria, urinary frequency, vomiting. Patient was recently dischraged few weeek karin, states she had been doing pretty well after dc, she went to fu with her pcp who check ed her Na which was slightly low, so her HCTZ was stopped, Patient states since yesterday her abdominal pain started and she came to ER to get elevated. She tried to drink some lemon juice with salt to help increase her sodium but states it was too concentrated and made her throat uncomfortable. In the ER patient was found to have low Na of 123, elevated lactate of 3.0, CT abdomen and pelvis is were unremarkable, CT angiogram of abdomen ruled out any occlusive vascular patholgy. Patient is being admitted for further management. - Related Data Allergies/Adverse Reactions: Allergies Allergy/AdvReac Type Severity Reaction Status Date / Time fentanyl Allergy Hallucinati Verified 10/14/19 06:44 ons oxycodone Allergy Stomach Verified 10/14/19 06:44 Upset perfumes Allergy Intermediate Headache Uncoded 10/14/19 06:44 Home Medications: Home Meds Nateglinide 120 mg PO TIDAC 08/30/14 [History] atorvaSTATin [Lipitor] 20 mg PO BEDTIME 08/30/14 [History] metFORMIN HCl [Metformin ER Osmotic] 2,000 mg PO PCBREAKFAST 08/30/14 [History] Diltiazem [Cardizem CD] 240 mg PO BRK #30 cap.cd 10/20/14 [Rx] Fish Oil/DHA/EPA [Fish Oil 1,200 MG] 1 tab PO DAILY 06/10/17 [History] Gabapentin [Neurontin] 900 mg PO TID 06/10/17 [History] Losartan Potassium 25 mg PO BEDTIME 06/10/17 [History] traZODone HCl [Trazodone HCl] 150 mg PO BEDTIME 06/10/17 [History] Rivaroxaban [Xarelto] 15 mg PO DAILY 07/29/18 [History] Cyanocobalamin (Vitamin B12) [Vitamin B12] 1,000 mcg PO BID 10/01/19 [History] Nitroglycerin 0.4 mg SL ASDIRECTED PRN 10/01/19 [History] Vit A/Vit C/Vit E/Zinc/Copper [Preservision] 1 tab PO BID 10/01/19 [History] Acetaminophen [Tylenol Extra Strength] 1 - 2 tab PO Q6H PRN 10/03/19 [History] Digoxin 125 mg PO DAILY 10/13/19 [History] Past Medical History HEENT History: Reports: Macular Degeneration Other HEENT History: wears glasses, rt hearing aid, "slow dry macular degeneration" Cardiovascular History: Reports: Afib, High Cholesterol, Hypertension Other Cardiovascular History: remote svt Respiratory History: Reports: None Gastrointestinal History: Reports: Hemorrhoids Genitourinary History: Reports: None 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: Musculoskeletal History: Reports: Arthritis, Back Pain, Chronic Other Musculoskeletal History: rt shoulder pain, steroid injections in tail bone and shoulder Neurological History: Reports: Neuropathy, Diabetic Other Neuro History: degenerative disc disease, hx of motion sickness Psychiatric History: Reports: Anxiety Endocrine/Metabolic History: Reports: Diabetes, Type II Hematologic History: Reports: Anticoagulation Therapy, Blood Transfusion(s) Other Hematologic History: hx of blood transfusion with hysterectomy Immunologic History: Reports: None Oncologic (Cancer) History: Reports: None Other Oncologic History: supposed to have cut off on 10/01 Dermatologic History: Reports: None - Infectious Disease History Infectious Disease History: Reports: Chicken Pox, Measles - Past Surgical History Head Surgeries/Procedures: Reports: None HEENT Surgical History: Reports: Adenoidectomy, Cataract Surgery, Tonsillectomy Cardiovascular Surgical History: Reports: None Respiratory Surgical History: Reports: None GI Surgical History: Reports: None Female Surgical History: Reports: Hysterectomy, Salpingo-Oophorectomy, Tubal Ligation Endocrine Surgical History: Reports: None Neurological Surgical History: Reports: None Musculoskeletal Surgical History: Reports: Knee Replacement Other Musculoskeletal Surgeries/Procedures:: both knees replacement Oncologic Surgical History: Reports: None Dermatological Surgical History: Reports: None Social & Family History - Family History Family Medical History: Noncontributory - Tobacco Use Smoking Status *Q: Never Smoker - Caffeine Use Caffeine Use: Reports: None - Recreational Drug Use Recreational Drug Use: No H&P Review of Systems - Review of Systems: Review Of Systems: See Below General: Reports: Weakness. Denies: Fever, Chills, Malaise, Fatigue HEENT: Denies: Dysphasia, Ear Pain Pulmonary: Denies: Shortness of Breath, Wheezing Cardiovascular: Denies: Chest Pain, Palpitations, Dyspnea on Exertion Gastrointestinal: Reports: Abdominal Pain, Decreased Appetite, Nausea. Denies: Anorexia, Black Stool, Bloody Stool, Constipation, Diarrhea, Difficulty Swallowing, Vomiting Genitourinary: Denies: Dysuria, Frequency, Burning Musculoskeletal: Denies: Neck Pain, Shoulder Pain, Arm Pain Skin: Denies: Cyanosis, Jaundice, Mottled Psychiatric: Denies: Confusion, Depression, Mood Lability Exam - Exam Exam: See Below - Vital Signs Vital Signs: Last Vital Signs Temp 35.8 C L 10/13/19 14:59 Pulse 83 10/13/19 18:05 Resp 18 10/13/19 18:05 BP 128/63 10/13/19 18:05 Pulse Ox 95 10/13/19 18:05 Weight: 73.2 kg - Exam General: Alert, Oriented Neck: Supple, Trachea Midline Lungs: Clear to Auscultation, Normal Respiratory Effort Cardiovascular: Regular Rate, Regular Rhythm, Normal S1, Normal S2 GI/Abdominal Exam: Soft, No Mass, Tender, Abnormal Bowel Sounds. No: Distended, Guarding, Rigid, Hernia, Mass, Hepatomegaly, Splenomegaly - Patient Data Lab Results Last 24 hrs: Laboratory Results - last 24 hr 10/13/19 10/13/19 10/13/19 Range/Units 15:10 15:10 15:10 WBC 6.13 (4.0-11.0) K/uL RBC 4.04 L (4.30-5.90) M/uL Hgb 11.9 L (12.0-16.0) g/dL Hct 34.9 L (36.0-46.0) % MCV 86.4 (80.0-98.0) fL MCH 29.5 (27.0-32.0) pg MCHC 34.1 (31.0-37.0) g/dL RDW Std Deviation 46.0 (28.0-62.0) fl RDW Coeff of Yonas 14 (11.0-15.0) % Plt Count 185 (150-400) K/uL MPV 9.90 (7.40-12.00) fL Neut % (Auto) 73.2 (48.0-80.0) % Lymph % (Auto) 15.5 L (16.0-40.0) % [place] % (Auto) 10.1 (0.0-15.0) % Eos % (Auto) 1.0 (0.0-7.0) % Baso % (Auto) 0.2 (0.0-1.5) % Neut # (Auto) 4.5 (1.4-5.7) K/uL Lymph # (Auto) 1.0 (0.6-2.4) K/uL [place] # (Auto) 0.6 (0.0-0.8) K/uL Eos # (Auto) 0.1 (0.0-0.7) K/uL Baso # (Auto) 0.0 (0.0-0.1) K/uL Nucleated RBC % 0.0 /100WBC Nucleated RBCs # 0 K/uL INR 1.04 APTT 28.4 (18.6-31.3) SEC Lactate (0.20-2.00) mmol/L Sodium 123 L (136-145) mmol/L Potassium 3.9 (3.5-5.1) mmol/L Chloride 88 L (98-107) mmol/L Carbon Dioxide 24.2 (21.0-32.0) mmol/L BUN 16 (7.0-18.0) mg/dL Creatinine 1.2 H (0.6-1.0) mg/dL Est Cr Clr Drug Dosing 37.12 mL/min Estimated GFR (MDRD) 42.9 ml/min Glucose 140 H (74-106) mg/dL Calcium 8.3 L (8.5-10.1) mg/dL Phosphorus 3.8 (2.6-4.7) mg/dL Magnesium 1.5 L (1.8-2.4) mg/dL Total Bilirubin 0.7 (0.2-1.0) mg/dL AST 15 (15-37) IU/L ALT 26 (14-63) IU/L Alkaline Phosphatase 52 (46-116) U/L Troponin I < 0.050 (0.000-0.056) ng/mL Total Protein 6.4 (6.4-8.2) g/dL Albumin 4.0 (3.4-5.0) g/dL Globulin 2.4 L (2.6-4.0) g/dL Albumin/Globulin Ratio 1.7 H (0.9-1.6) Lipase 214 (73-393) U/L Urine Color Urine Appearance Urine pH (5.0-8.0) Ur Specific [place] (1.001-1.035) Urine Protein (NEGATIVE) mg/dL Urine Glucose (UA) (NEGATIVE) mg/dL Urine Ketones (NEGATIVE) mg/dL Urine Occult Blood (NEGATIVE) Urine Nitrite (NEGATIVE) Urine Bilirubin (NEGATIVE) Urine Urobilinogen (<2.0) EU/dL Ur Leukocyte Esterase (NEGATIVE) Urine RBC (0-2/HPF) Urine WBC (0-5/HPF) Ur Epithelial Cells (NONE-FEW) Urine Bacteria (NEGATIVE) COVID-19 (JOSAFAT) (NEGATIVE) 10/13/19 10/13/19 10/13/19 Range/Units 15:10 15:35 16:45 WBC (4.0-11.0) K/uL RBC (4.30-5.90) M/uL Hgb (12.0-16.0) g/dL Hct (36.0-46.0) % MCV (80.0-98.0) fL MCH (27.0-32.0) pg MCHC (31.0-37.0) g/dL RDW Std Deviation (28.0-62.0) fl RDW Coeff of Yonas (11.0-15.0) % Plt Count (150-400) K/uL MPV (7.40-12.00) fL Neut % (Auto) (48.0-80.0) % Lymph % (Auto) (16.0-40.0) % [place] % (Auto) (0.0-15.0) % Eos % (Auto) (0.0-7.0) % Baso % (Auto) (0.0-1.5) % Neut # (Auto) (1.4-5.7) K/uL Lymph # (Auto) (0.6-2.4) K/uL [place] # (Auto) (0.0-0.8) K/uL Eos # (Auto) (0.0-0.7) K/uL Baso # (Auto) (0.0-0.1) K/uL Nucleated RBC % /100WBC Nucleated RBCs # K/uL INR APTT (18.6-31.3) SEC Lactate 3.0 H* (0.20-2.00) mmol/L Sodium (136-145) mmol/L Potassium (3.5-5.1) mmol/L Chloride (98-107) mmol/L Carbon Dioxide (21.0-32.0) mmol/L BUN (7.0-18.0) mg/dL Creatinine (0.6-1.0) mg/dL Est Cr Clr Drug Dosing mL/min Estimated GFR (MDRD) ml/min Glucose (74-106) mg/dL Calcium (8.5-10.1) mg/dL Phosphorus (2.6-4.7) mg/dL Magnesium (1.8-2.4) mg/dL Total Bilirubin (0.2-1.0) mg/dL AST (15-37) IU/L ALT (14-63) IU/L Alkaline Phosphatase (46-116) U/L Troponin I (0.000-0.056) ng/mL Total Protein (6.4-8.2) g/dL Albumin (3.4-5.0) g/dL Globulin (2.6-4.0) g/dL Albumin/Globulin Ratio (0.9-1.6) Lipase (73-393) U/L Urine Color YELLOW Urine Appearance CLEAR Urine pH 5.5 (5.0-8.0) Ur Specific [place] 1.010 (1.001-1.035) Urine Protein NEGATIVE (NEGATIVE) mg/dL Urine Glucose (UA) NEGATIVE (NEGATIVE) mg/dL Urine Ketones NEGATIVE (NEGATIVE) mg/dL Urine Occult Blood NEGATIVE (NEGATIVE) Urine Nitrite NEGATIVE (NEGATIVE) Urine Bilirubin NEGATIVE (NEGATIVE) Urine Urobilinogen 0.2 (<2.0) EU/dL Ur Leukocyte Esterase SMALL H (NEGATIVE) Urine RBC 0-1 (0-2/HPF) Urine WBC 2-3 (0-5/HPF) Ur Epithelial Cells OCCASIONAL (NONE-FEW) Urine Bacteria RARE (NEGATIVE) COVID-19 (JOSAFAT) NEGATIVE (NEGATIVE) Result Diagrams: 10/14/19 05:22 10/14/19 05:22 Sepsis Event Note - Evaluation Sepsis Screening Result: No Definite Risk - Focused Exam Vital Signs: Vital Signs Temp Pulse Resp BP Pulse Ox 10/13/19 18:05 83 18 128/63 95 10/13/19 17:45 64 17 92 L 10/13/19 16:04 63 137/59 L 93 L 10/13/19 15:33 63 16 109/49 L 93 L 10/13/19 14:59 35.8 C L 65 122/55 L 94 L Date Exam was Performed: 10/14/19 Time Exam was Performed: 09:02 - Problem List (1) Abdominal pain SNOMED Code(s): 45865584 ICD Code: R10.9 - UNSPECIFIED ABDOMINAL PAIN Status: Acute Current Visit: No (2) Hyponatremia SNOMED Code(s): 18340471 ICD Code: E87.1 - HYPO-OSMOLALITY AND HYPONATREMIA Status: Acute Current Visit: No (3) Lactic acidosis SNOMED Code(s): 36813806 ICD Code: E87.2 - ACIDOSIS Status: Acute Current Visit: Yes Problem List Initiated/Reviewed/Updated: Yes Orders Last 24hrs: Active Orders 24 hr Category Date Time Status Admission Status [Patient Status] [ADT] Stat ADT 10/13/19 18:35 Active Ambulate [RC] ASDIRECTED Care 10/13/19 18:36 Active Antiembolic Devices [RC] PER UNIT ROUTINE Care 10/13/19 18:38 Active Cardiac Monitoring [RC] . DIRECTED Care 10/13/19 14:43 Active EKG Documentation Completion [RC] STAT Care 10/13/19 14:44 Active Oxygen Therapy [RC] PRN Care 10/13/19 18:36 Active Pulse Oximetry [RC] ASDIRECTED Care 10/13/19 14:43 Active RT Aerosol Therapy [RC] ASDIRECTED Care 10/13/19 18:39 Active VTE/DVT Education [RC] PER UNIT ROUTINE Care 10/13/19 18:36 Active Vital Signs [RC] Q4H Care 10/13/19 18:36 Active Clear Liquid Diet [DIET] Diet 10/13/19 Dinner Active BMP [BASIC METABOLIC PANEL,BMP] [CHEM] AM Lab 10/14/19 05:11 Ordered CBC WITH AUTO DIFF [HEME] AM Lab 10/14/19 05:11 Ordered CULTURE URINE [RM] Stat Lab 10/13/19 18:35 Ordered LACTIC ACID,WHOLE BLOOD [BG] Stat Lab 10/13/19 20:00 Ordered MAGNESIUM [CHEM] AM Lab 10/14/19 05:11 Ordered PHOSPHORUS [CHEM] AM Lab 10/14/19 05:11 Ordered Acetaminophen [Tylenol] Med 10/13/19 18:36 Active 650 mg PO Q4H PRN Albuterol [Proventil Neb Soln] Med 10/13/19 18:36 Active 2.5 mg NEB Q2H PRN Cyanocobalamin (Vitamin B12) Med 10/13/19 21:00 Active 1,000 mcg PO BID Diltiazem [Cardizem CD] Med 10/14/19 09:00 Ordered 240 mg PO DAILY Fish Oil/DHA/EPA [Fish Oil 1,200 MG] Med 10/14/19 09:00 Active 1 tab PO DAILY Gabapentin [Neurontin] Med 10/13/19 22:00 Active 900 mg PO TID Lactated Ringers [Ringers, Lactated] 1,000 ml Med 10/13/19 18:45 Active IV ASDIRECTED Nitroglycerin [Nitrostat] Med 10/13/19 18:40 Active 0.4 mg SL ASDIRECTED PRN Ondansetron [Zofran ODT] Med 10/13/19 18:36 Active 4 mg PO Q4H PRN Ondansetron [Zofran] Med 10/13/19 18:36 Active 4 mg IVPUSH Q4H PRN Rivaroxaban [Xarelto] Med 10/14/19 09:00 Active 15 mg PO DAILY Sodium Chloride 0.9% [Saline Flush] Med 10/13/19 14:43 Active 10 ml FLUSH ASDIRECTED PRN Sodium Chloride 0.9% [Saline Flush] Med 10/13/19 14:43 Active 2.5 ml FLUSH ASDIRECTED PRN atorvaSTATin [Lipitor] Med 10/13/19 21:00 Active 20 mg PO BEDTIME bisacodyL [Dulcolax] Med 10/13/19 18:36 Active 5 mg PO DAILY PRN traZODone Med 10/13/19 21:00 Active 150 mg PO BEDTIME Saline Lock Insert [OM.PC] Stat Oth 10/13/19 14:44 Ordered Sequential Compression Device [OM.PC] Per Unit Routine Ot 10/13/19 18:38 Ordered Medication Orders Acetaminophen (Tylenol) 650 mg PO Q4H PRN PRN Reason: Pain (Mild 1-3)/fever Albuterol (Proventil Neb Soln) 2.5 mg NEB Q2H PRN PRN Reason: Shortness Of Breath/wheezing Atorvastatin Calcium (Lipitor) 20 mg PO BEDTIME [facility]ILFREDO Bisacodyl (Dulcolax) 5 mg PO DAILY PRN PRN Reason: Constipation Diltiazem HCl (Cardizem Cd) 240 mg PO DAILY [facility] Gabapentin (Neurontin) 900 mg PO TID [facility] Lactated Ringer's (Ringers, Lactated) 1,000 mls @ 125 mls/hr IV ASDIRECTED [facility] Nitroglycerin (Nitrostat) 0.4 mg SL ASDIRECTED PRN PRN Reason: Chest Pain Non-Formulary Medication (Cyanocobalamin (Vitamin B12)) 1,000 mcg PO BID [facility] Non-Formulary Medication (Fish Oil/Dha/Epa [Fish Oil 1,200 Mg]) 1 tab PO DAILY [facility] Ondansetron HCl (Zofran Odt) 4 mg PO Q4H PRN PRN Reason: nausea, able to take PO Ondansetron HCl (Zofran) 4 mg IVPUSH Q4H PRN PRN Reason: Nausea/Vomiting Rivaroxaban (Xarelto) 15 mg PO DAILY [facility] Sodium Chloride (Saline Flush) 10 ml FLUSH ASDIRECTED PRN PRN Reason: Keep Vein Open Sodium Chloride (Saline Flush) 2.5 ml FLUSH ASDIRECTED PRN PRN Reason: Keep Vein Open Trazodone HCl (Trazodone) 150 mg PO BEDTIME [facility] Assessment/Plan Comment:: 84 y/o F admitted for Hyponatremia and abdominal pain Start IV fluids Start clear diet Trend BMP daily Slightly abnormal creatinine, likely pre-renal, cont IV fluids cont home meds, hold JASE/ARB Monitor and replete electrolytes as needed Tylenol for pain as needed Zofran for N/V Diarrhea has subsided No concern for sepsis as of now, trend lactic acid till resolution
[2019-10-13] MEDS: Lactated Ringers 1,000 ML IV SCH (20:15)
[2019-10-13] MEDS: atorvaSTATin 20 MG Tab PO SCH (22:06)
[2019-10-13] MEDS: Gabapentin 300 MG Cap PO SCH (22:06)
[2019-10-13] MEDS: CYANOCOBALAMIN 1000 MCG PO SCH (22:07)
[2019-10-13] MEDS: traZODone 50 MG Tab PO SCH (22:41)
[2019-10-13] MEDS ORDERED: Magnesium Sulfate/Water 2 GM in Premix Bag 1 BAG IV ONE (23:27)
[2019-10-13] MEDS ORDERED: hydrALAZINE 20 MG/ML SDV IVPUSH PRN (23:29)
[2019-10-13] MEDS: Rivaroxaban 15 MG Tab PO SCH (23:35)
[2019-10-14 06:06] LABS: BLOOD UREA NITROGEN,BUN 11 mg/dL (7.0-18.0); CARBON DIOXIDE,CO2 26.8 mmol/L (21.0-32.0); CHLORIDE,CL 99 mmol/L (98-107); GLUCOSE RANDOM 80 mg/dL (74-106); POTASSIUM,K 3.8 mmol/L (3.5-5.1); SODIUM,NA 133 mmol/L (136-145)
[2019-10-14] MEDS: Gabapentin 300 MG Cap PO SCH ×3 (06:11→22:05)
[2019-10-14] MEDS: Lactated Ringers 1,000 ML IV SCH (06:12)
[2019-10-14] MEDS: Diltiazem 120 MG Cap.CD PO SCH (08:30)
[2019-10-14] MEDS: Rivaroxaban 15 MG Tab PO SCH (08:31)
[2019-10-14] MEDS: DHA PO SCH (08:39)
[2019-10-14] MEDS: EPA PO SCH (08:39)
[2019-10-14] MEDS: CYANOCOBALAMIN 1000 MCG PO SCH ×2 (08:39→22:07)
[2019-10-14] MEDS: FISH OIL PO SCH (08:39)
[2019-10-14] MEDS ORDERED: Rivaroxaban 15 MG Tab PO SCH (09:00)
--- NOTE | 2019-10-14 09:02 | PCM.PN ---
- General Info Date of Service: 10/14/19 Admission Dx/Problem (Free Text): Admission Diagnosis/Problem Admission Diagnosis/Problem Hyponatremia - Review of Systems General: Denies: Fever, Weakness, Fatigue Pulmonary: Denies: Shortness of Breath, Pleuritic Chest Pain Cardiovascular: Denies: Chest Pain, Palpitations, Dyspnea on Exertion Gastrointestinal: Denies: Abdominal Pain, Constipation, Decreased Appetite Genitourinary: Denies: Dysuria, Frequency, Burning Musculoskeletal: Denies: Neck Pain, Shoulder Pain, Arm Pain - Patient Data Vitals - Most Recent: Last Vital Signs Temp 36.2 C 10/14/19 07:35 Pulse 56 L 10/14/19 08:30 Resp 16 10/14/19 04:15 BP 141/64 H 10/14/19 08:30 Pulse Ox 95 10/14/19 07:35 Weight - Most Recent: 73.2 kg I&O - Last 24 Hours: Intake & Output 10/13/19 10/14/19 10/14/19 22:59 06:59 14:59 Intake Total 1340 Output Total 1700 Balance -360 Lab Results Last 24 Hours: Laboratory Results - last 24 hr 10/13/19 10/13/19 10/13/19 Range/Units 15:10 15:10 15:10 WBC 6.13 (4.0-11.0) K/uL RBC 4.04 L (4.30-5.90) M/uL Hgb 11.9 L (12.0-16.0) g/dL Hct 34.9 L (36.0-46.0) % MCV 86.4 (80.0-98.0) fL MCH 29.5 (27.0-32.0) pg MCHC 34.1 (31.0-37.0) g/dL RDW Std Deviation 46.0 (28.0-62.0) fl RDW Coeff of Yonas 14 (11.0-15.0) % Plt Count 185 (150-400) K/uL MPV 9.90 (7.40-12.00) fL Neut % (Auto) 73.2 (48.0-80.0) % Lymph % (Auto) 15.5 L (16.0-40.0) % [place]a % (Auto) 10.1 (0.0-15.0) % Eos % (Auto) 1.0 (0.0-7.0) % Baso % (Auto) 0.2 (0.0-1.5) % Neut # (Auto) 4.5 (1.4-5.7) K/uL Lymph # (Auto) 1.0 (0.6-2.4) K/uL Louisa # (Auto) 0.6 (0.0-0.8) K/uL Eos # (Auto) 0.1 (0.0-0.7) K/uL Baso # (Auto) 0.0 (0.0-0.1) K/uL Nucleated RBC % 0.0 /100WBC Nucleated RBCs # 0 K/uL INR 1.04 APTT 28.4 (18.6-31.3) SEC Lactate (0.20-2.00) mmol/L Sodium 123 L (136-145) mmol/L Potassium 3.9 (3.5-5.1) mmol/L Chloride 88 L (98-107) mmol/L Carbon Dioxide 24.2 (21.0-32.0) mmol/L BUN 16 (7.0-18.0) mg/dL Creatinine 1.2 H (0.6-1.0) mg/dL Est Cr Clr Drug Dosing 37.12 mL/min Estimated GFR (MDRD) 42.9 ml/min Glucose 140 H (74-106) mg/dL POC Glucose (60-110) mg/dL Calcium 8.3 L (8.5-10.1) mg/dL Phosphorus 3.8 (2.6-4.7) mg/dL Magnesium 1.5 L (1.8-2.4) mg/dL Total Bilirubin 0.7 (0.2-1.0) mg/dL AST 15 (15-37) IU/L ALT 26 (14-63) IU/L Alkaline Phosphatase 52 (46-116) U/L Troponin I < 0.050 (0.000-0.056) ng/mL Total Protein 6.4 (6.4-8.2) g/dL Albumin 4.0 (3.4-5.0) g/dL Globulin 2.4 L (2.6-4.0) g/dL Albumin/Globulin Ratio 1.7 H (0.9-1.6) Lipase 214 (73-393) U/L Urine Color Urine Appearance Urine pH (5.0-8.0) Ur Specific [place] (1.001-1.035) Urine Protein (NEGATIVE) mg/dL Urine Glucose (UA) (NEGATIVE) mg/dL Urine Ketones (NEGATIVE) mg/dL Urine Occult Blood (NEGATIVE) Urine Nitrite (NEGATIVE) Urine Bilirubin (NEGATIVE) Urine Urobilinogen (<2.0) EU/dL Ur Leukocyte Esterase (NEGATIVE) Urine RBC (0-2/HPF) Urine WBC (0-5/HPF) Ur Epithelial Cells (NONE-FEW) Urine Bacteria (NEGATIVE) COVID-19 (JOSAFAT) (NEGATIVE) 10/13/19 10/13/19 10/13/19 Range/Units 15:10 15:35 16:45 WBC (4.0-11.0) K/uL RBC (4.30-5.90) M/uL Hgb (12.0-16.0) g/dL Hct (36.0-46.0) % MCV (80.0-98.0) fL MCH (27.0-32.0) pg MCHC (31.0-37.0) g/dL RDW Std Deviation (28.0-62.0) fl RDW Coeff of Yonas (11.0-15.0) % Plt Count (150-400) K/uL MPV (7.40-12.00) fL Neut % (Auto) (48.0-80.0) % Lymph % (Auto) (16.0-40.0) % Louisa % (Auto) (0.0-15.0) % Eos % (Auto) (0.0-7.0) % Baso % (Auto) (0.0-1.5) % Neut # (Auto) (1.4-5.7) K/uL Lymph # (Auto) (0.6-2.4) K/uL Louisa # (Auto) (0.0-0.8) K/uL Eos # (Auto) (0.0-0.7) K/uL Baso # (Auto) (0.0-0.1) K/uL Nucleated RBC % /100WBC Nucleated RBCs # K/uL INR APTT (18.6-31.3) SEC Lactate 3.0 H* (0.20-2.00) mmol/L Sodium (136-145) mmol/L Potassium (3.5-5.1) mmol/L Chloride (98-107) mmol/L Carbon Dioxide (21.0-32.0) mmol/L BUN (7.0-18.0) mg/dL Creatinine (0.6-1.0) mg/dL Est Cr Clr Drug Dosing mL/min Estimated GFR (MDRD) ml/min Glucose (74-106) mg/dL POC Glucose (60-110) mg/dL Calcium (8.5-10.1) mg/dL Phosphorus (2.6-4.7) mg/dL Magnesium (1.8-2.4) mg/dL Total Bilirubin (0.2-1.0) mg/dL AST (15-37) IU/L ALT (14-63) IU/L Alkaline Phosphatase (46-116) U/L Troponin I (0.000-0.056) ng/mL Total Protein (6.4-8.2) g/dL Albumin (3.4-5.0) g/dL Globulin (2.6-4.0) g/dL Albumin/Globulin Ratio (0.9-1.6) Lipase (73-393) U/L Urine Color YELLOW Urine Appearance CLEAR Urine pH 5.5 (5.0-8.0) Ur Specific [place] 1.010 (1.001-1.035) Urine Protein NEGATIVE (NEGATIVE) mg/dL Urine Glucose (UA) NEGATIVE (NEGATIVE) mg/dL Urine Ketones NEGATIVE (NEGATIVE) mg/dL Urine Occult Blood NEGATIVE (NEGATIVE) Urine Nitrite NEGATIVE (NEGATIVE) Urine Bilirubin NEGATIVE (NEGATIVE) Urine Urobilinogen 0.2 (<2.0) EU/dL Ur Leukocyte Esterase SMALL H (NEGATIVE) Urine RBC 0-1 (0-2/HPF) Urine WBC 2-3 (0-5/HPF) Ur Epithelial Cells OCCASIONAL (NONE-FEW) Urine Bacteria RARE (NEGATIVE) COVID-19 (JOSAFAT) NEGATIVE (NEGATIVE) 10/13/19 10/14/19 10/14/19 Range/Units 20:07 05:22 05:22 WBC 4.23 (4.0-11.0) K/uL RBC 3.75 L (4.30-5.90) M/uL Hgb 11.3 L (12.0-16.0) g/dL Hct 32.4 L (36.0-46.0) % MCV 86.4 (80.0-98.0) fL MCH 30.1 (27.0-32.0) pg MCHC 34.9 (31.0-37.0) g/dL RDW Std Deviation 45.4 (28.0-62.0) fl RDW Coeff of Yonas 14 (11.0-15.0) % Plt Count 189 (150-400) K/uL MPV 10.30 (7.40-12.00) fL Neut % (Auto) 62.4 (48.0-80.0) % Lymph % (Auto) 22.5 (16.0-40.0) % Louisa % (Auto) 13.7 (0.0-15.0) % Eos % (Auto) 1.2 (0.0-7.0) % Baso % (Auto) 0.2 (0.0-1.5) % Neut # (Auto) 2.6 (1.4-5.7) K/uL Lymph # (Auto) 1.0 (0.6-2.4) K/uL Louisa # (Auto) 0.6 (0.0-0.8) K/uL Eos # (Auto) 0.1 (0.0-0.7) K/uL Baso # (Auto) 0.0 (0.0-0.1) K/uL Nucleated RBC % 0.0 /100WBC Nucleated RBCs # 0 K/uL INR APTT (18.6-31.3) SEC Lactate 1.1 (0.20-2.00) mmol/L Sodium 133 L (136-145) mmol/L Potassium 3.8 (3.5-5.1) mmol/L Chloride 99 (98-107) mmol/L Carbon Dioxide 26.8 (21.0-32.0) mmol/L BUN 11 (7.0-18.0) mg/dL Creatinine 0.8 (0.6-1.0) mg/dL Est Cr Clr Drug Dosing 55.68 mL/min Estimated GFR (MDRD) > 60.0 ml/min Glucose 80 (74-106) mg/dL POC Glucose (60-110) mg/dL Calcium 8.4 L (8.5-10.1) mg/dL Phosphorus 3.1 (2.6-4.7) mg/dL Magnesium 2.0 (1.8-2.4) mg/dL Total Bilirubin (0.2-1.0) mg/dL AST (15-37) IU/L ALT (14-63) IU/L Alkaline Phosphatase (46-116) U/L Troponin I (0.000-0.056) ng/mL Total Protein (6.4-8.2) g/dL Albumin (3.4-5.0) g/dL Globulin (2.6-4.0) g/dL Albumin/Globulin Ratio (0.9-1.6) Lipase (73-393) U/L Urine Color Urine Appearance Urine pH (5.0-8.0) Ur Specific [place] (1.001-1.035) Urine Protein (NEGATIVE) mg/dL Urine Glucose (UA) (NEGATIVE) mg/dL Urine Ketones (NEGATIVE) mg/dL Urine Occult Blood (NEGATIVE) Urine Nitrite (NEGATIVE) Urine Bilirubin (NEGATIVE) Urine Urobilinogen (<2.0) EU/dL Ur Leukocyte Esterase (NEGATIVE) Urine RBC (0-2/HPF) Urine WBC (0-5/HPF) Ur Epithelial Cells (NONE-FEW) Urine Bacteria (NEGATIVE) COVID-19 (JOSAFAT) (NEGATIVE) 10/14/19 Range/Units 08:47 WBC (4.0-11.0) K/uL RBC (4.30-5.90) M/uL Hgb (12.0-16.0) g/dL Hct (36.0-46.0) % MCV (80.0-98.0) fL MCH (27.0-32.0) pg MCHC (31.0-37.0) g/dL RDW Std Deviation (28.0-62.0) fl RDW Coeff of Yonas (11.0-15.0) % Plt Count (150-400) K/uL MPV (7.40-12.00) fL Neut % (Auto) (48.0-80.0) % Lymph % (Auto) (16.0-40.0) % [place]a % (Auto) (0.0-15.0) % Eos % (Auto) (0.0-7.0) % Baso % (Auto) (0.0-1.5) % Neut # (Auto) (1.4-5.7) K/uL Lymph # (Auto) (0.6-2.4) K/uL [place] # (Auto) (0.0-0.8) K/uL Eos # (Auto) (0.0-0.7) K/uL Baso # (Auto) (0.0-0.1) K/uL Nucleated RBC % /100WBC Nucleated RBCs # K/uL INR APTT (18.6-31.3) SEC Lactate (0.20-2.00) mmol/L Sodium (136-145) mmol/L Potassium (3.5-5.1) mmol/L Chloride (98-107) mmol/L Carbon Dioxide (21.0-32.0) mmol/L BUN (7.0-18.0) mg/dL Creatinine (0.6-1.0) mg/dL Est Cr Clr Drug Dosing mL/min Estimated GFR (MDRD) ml/min Glucose (74-106) mg/dL POC Glucose 93 (60-110) mg/dL Calcium (8.5-10.1) mg/dL Phosphorus (2.6-4.7) mg/dL Magnesium (1.8-2.4) mg/dL Total Bilirubin (0.2-1.0) mg/dL AST (15-37) IU/L ALT (14-63) IU/L Alkaline Phosphatase (46-116) U/L Troponin I (0.000-0.056) ng/mL Total Protein (6.4-8.2) g/dL Albumin (3.4-5.0) g/dL Globulin (2.6-4.0) g/dL Albumin/Globulin Ratio (0.9-1.6) Lipase (73-393) U/L Urine Color Urine Appearance Urine pH (5.0-8.0) Ur Specific [place] (1.001-1.035) Urine Protein (NEGATIVE) mg/dL Urine Glucose (UA) (NEGATIVE) mg/dL Urine Ketones (NEGATIVE) mg/dL Urine Occult Blood (NEGATIVE) Urine Nitrite (NEGATIVE) Urine Bilirubin (NEGATIVE) Urine Urobilinogen (<2.0) EU/dL Ur Leukocyte Esterase (NEGATIVE) Urine RBC (0-2/HPF) Urine WBC (0-5/HPF) Ur Epithelial Cells (NONE-FEW) Urine Bacteria (NEGATIVE) COVID-19 (JOSAFAT) (NEGATIVE) Med Orders - Current: Current Medications Acetaminophen (Tylenol) 650 mg PO Q4H PRN PRN Reason: Pain (Mild 1-3)/fever Albuterol (Proventil Neb Soln) 2.5 mg NEB Q2H PRN PRN Reason: Shortness Of Breath/wheezing Atorvastatin Calcium (Lipitor) 20 mg PO BEDTIME [facility] Last Admin: 10/13/19 22:06 Dose: 20 mg Documented by: Bisacodyl (Dulcolax) 5 mg PO DAILY PRN PRN Reason: Constipation Diltiazem HCl (Cardizem Cd) 240 mg PO DAILY [facility] Last Admin: 10/14/19 08:30 Dose: 240 mg Documented by: Gabapentin (Neurontin) 900 mg PO TID [facility] Last Admin: 10/14/19 06:11 Dose: 900 mg Documented by: Hydralazine HCl (Apresoline) 20 mg IVPUSH Q4H PRN PRN Reason: Hypertension Lactated Ringer's (Ringers, Lactated) 1,000 mls @ 125 mls/hr IV ASDIRECTED [facility] Last Admin: 10/14/19 06:12 Dose: 125 mls/hr Documented by: Insulin Aspart (Novolog) 0 unit SUBCUT TIDAC [facility]; Protocol Nitroglycerin (Nitrostat) 0.4 mg SL ASDIRECTED PRN PRN Reason: Chest Pain Non-Formulary Medication (Cyanocobalamin (Vitamin B12)) 1,000 mcg PO BID [facility] Last Admin: 10/14/19 08:39 Dose: 1,000 mcg Documented by: Non-Formulary Medication (Fish Oil/Dha/Epa [Fish Oil 1,200 Mg]) 1 tab PO DAILY [facility] Last Admin: 10/14/19 08:39 Dose: Not Given Documented by: Ondansetron HCl (Zofran Odt) 4 mg PO Q4H PRN PRN Reason: nausea, able to take PO Ondansetron HCl (Zofran) 4 mg IVPUSH Q4H PRN PRN Reason: Nausea/Vomiting Rivaroxaban (Xarelto) 15 mg PO DAILY [facility] Last Admin: 10/14/19 08:31 Dose: 15 mg Documented by: Sodium Chloride (Saline Flush) 10 ml FLUSH ASDIRECTED PRN PRN Reason: Keep Vein Open Sodium Chloride (Saline Flush) 2.5 ml FLUSH ASDIRECTED PRN PRN Reason: Keep Vein Open Trazodone HCl (Trazodone) 150 mg PO BEDTIME [facility] Last Admin: 10/13/19 22:41 Dose: 150 mg Documented by: Discontinued Medications Lactated Ringer's (Ringers, Lactated) 1,000 mls @ 999 mls/hr IV .BOLUS ONE Stop: 10/13/19 16:27 Last Admin: 10/13/19 15:32 Dose: 999 mls/hr Documented by: Magnesium Sulfate 2 gm/ Premix 50 mls @ 50 mls/hr IV ONETIME ONE Stop: 10/14/19 00:26 Last Admin: 10/13/19 23:35 Dose: 50 mls/hr Documented by: Iopamidol (Isovue-370 (76%)) 100 ml IVPUSH ONETIME ONE Stop: 10/13/19 17:39 Last Admin: 10/13/19 17:39 Dose: 100 ml Documented by: Rivaroxaban (Xarelto) 15 mg PO DAILY [facility] - Exam General: Alert, Oriented Lungs: Clear to Auscultation, Normal Respiratory Effort Cardiovascular: Regular Rate, Regular Rhythm GI/Abdominal Exam: Normal Bowel Sounds, Soft, Non-Tender. No: Distended, Guarding, Rigid, Rebound Sepsis Event Note - Evaluation Sepsis Screening Result: No Definite Risk - Focused Exam Vital Signs: Vital Signs Temp Pulse Pulse Resp BP BP Pulse Ox 10/14/19 08:30 56 L 141/64 H 10/14/19 07:35 36.2 C 62 132/66 95 10/14/19 04:15 35.7 C L 63 16 134/60 93 L 10/13/19 23:44 36.6 C 59 L 16 131/58 L 93 L Date Exam was Performed: 10/14/19 Time Exam was Performed: 08:59 - Problem List & Annotations (1) Abdominal pain SNOMED Code(s): 17144591 Code(s): R10.9 - UNSPECIFIED ABDOMINAL PAIN Status: Acute Current Visit: No (2) Hyponatremia SNOMED Code(s): 00708976 Code(s): E87.1 - HYPO-OSMOLALITY AND HYPONATREMIA Status: Acute Current Visit: No (3) Lactic acidosis SNOMED Code(s): 39185629 Code(s): E87.2 - ACIDOSIS Status: Acute Current Visit: Yes - Problem List Review Problem List Initiated/Reviewed/Updated: Yes - My Orders Last 24 Hours: My Active Orders 10/13/19 16:20 CULTURE URINE [RM] Stat 10/13/19 18:36 Ambulate [RC] ASDIRECTED Oxygen Therapy [RC] PRN VTE/DVT Education [RC] PER UNIT ROUTINE Vital Signs [RC] Q4H Acetaminophen [Tylenol] 650 mg PO Q4H PRN Albuterol [Proventil Neb Soln] 2.5 mg NEB Q2H PRN Ondansetron [Zofran ODT] 4 mg PO Q4H PRN Ondansetron [Zofran] 4 mg IVPUSH Q4H PRN bisacodyL [Dulcolax] 5 mg PO DAILY PRN 10/13/19 18:38 Antiembolic Devices [RC] PER UNIT ROUTINE Sequential Compression Device [OM.PC] Per Unit Routine 10/13/19 18:39 RT Aerosol Therapy [RC] ASDIRECTED 10/13/19 18:40 Telemetry Monitoring [Cardiac Monitoring] [RC] . DIRECTED Nitroglycerin [Nitrostat] 0.4 mg SL ASDIRECTED PRN 10/13/19 18:45 Lactated Ringers [Ringers, Lactated] 1,000 ml IV ASDIRECTED 10/13/19 21:00 Cyanocobalamin (Vitamin B12) 1,000 mcg PO BID atorvaSTATin [Lipitor] 20 mg PO BEDTIME traZODone 150 mg PO BEDTIME 10/13/19 22:00 Gabapentin [Neurontin] 900 mg PO TID 10/13/19 23:28 Rivaroxaban [Xarelto] 15 mg PO DAILY 10/13/19 23:29 hydrALAZINE [Apresoline] 20 mg IVPUSH Q4H PRN 10/14/19 09:00 Diltiazem [Cardizem CD] 240 mg PO DAILY Fish Oil/DHA/EPA [Fish Oil 1,200 MG] 1 tab PO DAILY Insulin Aspart [NovoLOG] See Protocol SUBCUT TIDAC 10/14/19 Lunch Heart Healthy Diet [DIET] - Plan Plan:: 84 y/o F admitted for Hyponatremia and abdominal pain Start IV fluids Hyponatremia is improving Start cardiac diet, stop fluids Creatinine is back to normal, cont home meds, resume JASE/ARB Monitor and replete electrolytes as needed Tylenol for pain as needed N/V has subsided Diarrhea has subsided Lactic aciddosis has resolved If able to tolerate diet and feels well enough to go home will dc today with close pcp f/u
[2019-10-14] MEDS: Insulin Aspart 100 Units/ML 3 ML Pen SUBCUT SCH ×3 (10:01→17:34)
--- NOTE | 2019-10-14 10:21 | PCM.DCSUM1 ---
Discharge Summary - Discharge Data Discharge Date: 10/14/19 Discharge Disposition: Home, Self-Care 01 Condition: Good - Referral to Home Health Primary Care Physician: Earle Terry MD - Discharge Diagnosis/Problem(s) (1) Abdominal pain SNOMED Code(s): 66176623 ICD Code: R10.9 - UNSPECIFIED ABDOMINAL PAIN Status: Acute Current Visit: No (2) Hyponatremia SNOMED Code(s): 34426681 ICD Code: E87.1 - HYPO-OSMOLALITY AND HYPONATREMIA Status: Acute Current Visit: No (3) Lactic acidosis SNOMED Code(s): 42845967 ICD Code: E87.2 - ACIDOSIS Status: Acute Current Visit: Yes - Discharge Plan Home Medications: Home Meds Nateglinide 120 mg PO TIDAC 08/30/14 [History] atorvaSTATin [Lipitor] 20 mg PO BEDTIME 08/30/14 [History] metFORMIN HCl [Metformin ER Osmotic] 2,000 mg PO PCBREAKFAST 08/30/14 [History] Diltiazem [Cardizem CD] 240 mg PO BRK #30 cap.cd 10/20/14 [Rx] Fish Oil/DHA/EPA [Fish Oil 1,200 MG] 1 tab PO DAILY 06/10/17 [History] Gabapentin [Neurontin] 900 mg PO TID 06/10/17 [History] Losartan Potassium 25 mg PO BEDTIME 06/10/17 [History] traZODone HCl [Trazodone HCl] 150 mg PO BEDTIME 06/10/17 [History] Rivaroxaban [Xarelto] 15 mg PO DAILY 07/29/18 [History] Cyanocobalamin (Vitamin B12) [Vitamin B12] 1,000 mcg PO BID 10/01/19 [History] Nitroglycerin 0.4 mg SL ASDIRECTED PRN 10/01/19 [History] Vit A/Vit C/Vit E/Zinc/Copper [Preservision] 1 tab PO BID 10/01/19 [History] Acetaminophen [Tylenol Extra Strength] 1 - 2 tab PO Q6H PRN 10/03/19 [History] Digoxin 125 mg PO DAILY 10/13/19 [History] Forms: ED Department Discharge Referrals: Earle Terry MD [Primary Care Provider] - - Patient Data Vitals - Most Recent: Last Vital Signs Temp 36.2 C 10/14/19 07:35 Pulse 56 L 10/14/19 08:30 Resp 16 10/14/19 04:15 BP 141/64 H 10/14/19 08:30 Pulse Ox 95 10/14/19 07:35 Weight - Most Recent: 73.2 kg I&O - Last 24 hours: Intake & Output 10/13/19 10/14/19 10/14/19 22:59 06:59 14:59 Intake Total 1340 Output Total 1700 Balance -360 Lab Results - Last 24 hrs: Laboratory Results - last 24 hr 10/13/19 10/13/19 10/13/19 Range/Units 15:10 15:10 15:10 WBC 6.13 (4.0-11.0) K/uL RBC 4.04 L (4.30-5.90) M/uL Hgb 11.9 L (12.0-16.0) g/dL Hct 34.9 L (36.0-46.0) % MCV 86.4 (80.0-98.0) fL MCH 29.5 (27.0-32.0) pg MCHC 34.1 (31.0-37.0) g/dL RDW Std Deviation 46.0 (28.0-62.0) fl RDW Coeff of Yonas 14 (11.0-15.0) % Plt Count 185 (150-400) K/uL MPV 9.90 (7.40-12.00) fL Neut % (Auto) 73.2 (48.0-80.0) % Lymph % (Auto) 15.5 L (16.0-40.0) % Starr % (Auto) 10.1 (0.0-15.0) % Eos % (Auto) 1.0 (0.0-7.0) % Baso % (Auto) 0.2 (0.0-1.5) % Neut # (Auto) 4.5 (1.4-5.7) K/uL Lymph # (Auto) 1.0 (0.6-2.4) K/uL Starr # (Auto) 0.6 (0.0-0.8) K/uL Eos # (Auto) 0.1 (0.0-0.7) K/uL Baso # (Auto) 0.0 (0.0-0.1) K/uL Nucleated RBC % 0.0 /100WBC Nucleated RBCs # 0 K/uL INR 1.04 APTT 28.4 (18.6-31.3) SEC Lactate (0.20-2.00) mmol/L Sodium 123 L (136-145) mmol/L Potassium 3.9 (3.5-5.1) mmol/L Chloride 88 L (98-107) mmol/L Carbon Dioxide 24.2 (21.0-32.0) mmol/L BUN 16 (7.0-18.0) mg/dL Creatinine 1.2 H (0.6-1.0) mg/dL Est Cr Clr Drug Dosing 37.12 mL/min Estimated GFR (MDRD) 42.9 ml/min Glucose 140 H (74-106) mg/dL POC Glucose (60-110) mg/dL Calcium 8.3 L (8.5-10.1) mg/dL Phosphorus 3.8 (2.6-4.7) mg/dL Magnesium 1.5 L (1.8-2.4) mg/dL Total Bilirubin 0.7 (0.2-1.0) mg/dL AST 15 (15-37) IU/L ALT 26 (14-63) IU/L Alkaline Phosphatase 52 (46-116) U/L Troponin I < 0.050 (0.000-0.056) ng/mL Total Protein 6.4 (6.4-8.2) g/dL Albumin 4.0 (3.4-5.0) g/dL Globulin 2.4 L (2.6-4.0) g/dL Albumin/Globulin Ratio 1.7 H (0.9-1.6) Lipase 214 (73-393) U/L Urine Color Urine Appearance Urine pH (5.0-8.0) Ur Specific [place] (1.001-1.035) Urine Protein (NEGATIVE) mg/dL Urine Glucose (UA) (NEGATIVE) mg/dL Urine Ketones (NEGATIVE) mg/dL Urine Occult Blood (NEGATIVE) Urine Nitrite (NEGATIVE) Urine Bilirubin (NEGATIVE) Urine Urobilinogen (<2.0) EU/dL Ur Leukocyte Esterase (NEGATIVE) Urine RBC (0-2/HPF) Urine WBC (0-5/HPF) Ur Epithelial Cells (NONE-FEW) Urine Bacteria (NEGATIVE) COVID-19 (JOSAFAT) (NEGATIVE) 10/13/19 10/13/19 10/13/19 Range/Units 15:10 15:35 16:45 WBC (4.0-11.0) K/uL RBC (4.30-5.90) M/uL Hgb (12.0-16.0) g/dL Hct (36.0-46.0) % MCV (80.0-98.0) fL MCH (27.0-32.0) pg MCHC (31.0-37.0) g/dL RDW Std Deviation (28.0-62.0) fl RDW Coeff of Yonas (11.0-15.0) % Plt Count (150-400) K/uL MPV (7.40-12.00) fL Neut % (Auto) (48.0-80.0) % Lymph % (Auto) (16.0-40.0) % Starr % (Auto) (0.0-15.0) % Eos % (Auto) (0.0-7.0) % Baso % (Auto) (0.0-1.5) % Neut # (Auto) (1.4-5.7) K/uL Lymph # (Auto) (0.6-2.4) K/uL Starr # (Auto) (0.0-0.8) K/uL Eos # (Auto) (0.0-0.7) K/uL Baso # (Auto) (0.0-0.1) K/uL Nucleated RBC % /100WBC Nucleated RBCs # K/uL INR APTT (18.6-31.3) SEC Lactate 3.0 H* (0.20-2.00) mmol/L Sodium (136-145) mmol/L Potassium (3.5-5.1) mmol/L Chloride (98-107) mmol/L Carbon Dioxide (21.0-32.0) mmol/L BUN (7.0-18.0) mg/dL Creatinine (0.6-1.0) mg/dL Est Cr Clr Drug Dosing mL/min Estimated GFR (MDRD) ml/min Glucose (74-106) mg/dL POC Glucose (60-110) mg/dL Calcium (8.5-10.1) mg/dL Phosphorus (2.6-4.7) mg/dL Magnesium (1.8-2.4) mg/dL Total Bilirubin (0.2-1.0) mg/dL AST (15-37) IU/L ALT (14-63) IU/L Alkaline Phosphatase (46-116) U/L Troponin I (0.000-0.056) ng/mL Total Protein (6.4-8.2) g/dL Albumin (3.4-5.0) g/dL Globulin (2.6-4.0) g/dL Albumin/Globulin Ratio (0.9-1.6) Lipase (73-393) U/L Urine Color YELLOW Urine Appearance CLEAR Urine pH 5.5 (5.0-8.0) Ur Specific [place] 1.010 (1.001-1.035) Urine Protein NEGATIVE (NEGATIVE) mg/dL Urine Glucose (UA) NEGATIVE (NEGATIVE) mg/dL Urine Ketones NEGATIVE (NEGATIVE) mg/dL Urine Occult Blood NEGATIVE (NEGATIVE) Urine Nitrite NEGATIVE (NEGATIVE) Urine Bilirubin NEGATIVE (NEGATIVE) Urine Urobilinogen 0.2 (<2.0) EU/dL Ur Leukocyte Esterase SMALL H (NEGATIVE) Urine RBC 0-1 (0-2/HPF) Urine WBC 2-3 (0-5/HPF) Ur Epithelial Cells OCCASIONAL (NONE-FEW) Urine Bacteria RARE (NEGATIVE) COVID-19 (JOSAFAT) NEGATIVE (NEGATIVE) 10/13/19 10/14/19 10/14/19 Range/Units 20:07 05:22 05:22 WBC 4.23 (4.0-11.0) K/uL RBC 3.75 L (4.30-5.90) M/uL Hgb 11.3 L (12.0-16.0) g/dL Hct 32.4 L (36.0-46.0) % MCV 86.4 (80.0-98.0) fL MCH 30.1 (27.0-32.0) pg MCHC 34.9 (31.0-37.0) g/dL RDW Std Deviation 45.4 (28.0-62.0) fl RDW Coeff of Yonas 14 (11.0-15.0) % Plt Count 189 (150-400) K/uL MPV 10.30 (7.40-12.00) fL Neut % (Auto) 62.4 (48.0-80.0) % Lymph % (Auto) 22.5 (16.0-40.0) % Starr % (Auto) 13.7 (0.0-15.0) % Eos % (Auto) 1.2 (0.0-7.0) % Baso % (Auto) 0.2 (0.0-1.5) % Neut # (Auto) 2.6 (1.4-5.7) K/uL Lymph # (Auto) 1.0 (0.6-2.4) K/uL Starr # (Auto) 0.6 (0.0-0.8) K/uL Eos # (Auto) 0.1 (0.0-0.7) K/uL Baso # (Auto) 0.0 (0.0-0.1) K/uL Nucleated RBC % 0.0 /100WBC Nucleated RBCs # 0 K/uL INR APTT (18.6-31.3) SEC Lactate 1.1 (0.20-2.00) mmol/L Sodium 133 L (136-145) mmol/L Potassium 3.8 (3.5-5.1) mmol/L Chloride 99 (98-107) mmol/L Carbon Dioxide 26.8 (21.0-32.0) mmol/L BUN 11 (7.0-18.0) mg/dL Creatinine 0.8 (0.6-1.0) mg/dL Est Cr Clr Drug Dosing 55.68 mL/min Estimated GFR (MDRD) > 60.0 ml/min Glucose 80 (74-106) mg/dL POC Glucose (60-110) mg/dL Calcium 8.4 L (8.5-10.1) mg/dL Phosphorus 3.1 (2.6-4.7) mg/dL Magnesium 2.0 (1.8-2.4) mg/dL Total Bilirubin (0.2-1.0) mg/dL AST (15-37) IU/L ALT (14-63) IU/L Alkaline Phosphatase (46-116) U/L Troponin I (0.000-0.056) ng/mL Total Protein (6.4-8.2) g/dL Albumin (3.4-5.0) g/dL Globulin (2.6-4.0) g/dL Albumin/Globulin Ratio (0.9-1.6) Lipase (73-393) U/L Urine Color Urine Appearance Urine pH (5.0-8.0) Ur Specific [place] (1.001-1.035) Urine Protein (NEGATIVE) mg/dL Urine Glucose (UA) (NEGATIVE) mg/dL Urine Ketones (NEGATIVE) mg/dL Urine Occult Blood (NEGATIVE) Urine Nitrite (NEGATIVE) Urine Bilirubin (NEGATIVE) Urine Urobilinogen (<2.0) EU/dL Ur Leukocyte Esterase (NEGATIVE) Urine RBC (0-2/HPF) Urine WBC (0-5/HPF) Ur Epithelial Cells (NONE-FEW) Urine Bacteria (NEGATIVE) COVID-19 (JOSAFAT) (NEGATIVE) 10/14/19 Range/Units 08:47 WBC (4.0-11.0) K/uL RBC (4.30-5.90) M/uL Hgb (12.0-16.0) g/dL Hct (36.0-46.0) % MCV (80.0-98.0) fL MCH (27.0-32.0) pg MCHC (31.0-37.0) g/dL RDW Std Deviation (28.0-62.0) fl RDW Coeff of Yonas (11.0-15.0) % Plt Count (150-400) K/uL MPV (7.40-12.00) fL Neut % (Auto) (48.0-80.0) % Lymph % (Auto) (16.0-40.0) % Starr % (Auto) (0.0-15.0) % Eos % (Auto) (0.0-7.0) % Baso % (Auto) (0.0-1.5) % Neut # (Auto) (1.4-5.7) K/uL Lymph # (Auto) (0.6-2.4) K/uL Starr # (Auto) (0.0-0.8) K/uL Eos # (Auto) (0.0-0.7) K/uL Baso # (Auto) (0.0-0.1) K/uL Nucleated RBC % /100WBC Nucleated RBCs # K/uL INR APTT (18.6-31.3) SEC Lactate (0.20-2.00) mmol/L Sodium (136-145) mmol/L Potassium (3.5-5.1) mmol/L Chloride (98-107) mmol/L Carbon Dioxide (21.0-32.0) mmol/L BUN (7.0-18.0) mg/dL Creatinine (0.6-1.0) mg/dL Est Cr Clr Drug Dosing mL/min Estimated GFR (MDRD) ml/min Glucose (74-106) mg/dL POC Glucose 93 (60-110) mg/dL Calcium (8.5-10.1) mg/dL Phosphorus (2.6-4.7) mg/dL Magnesium (1.8-2.4) mg/dL Total Bilirubin (0.2-1.0) mg/dL AST (15-37) IU/L ALT (14-63) IU/L Alkaline Phosphatase (46-116) U/L Troponin I (0.000-0.056) ng/mL Total Protein (6.4-8.2) g/dL Albumin (3.4-5.0) g/dL Globulin (2.6-4.0) g/dL Albumin/Globulin Ratio (0.9-1.6) Lipase (73-393) U/L Urine Color Urine Appearance Urine pH (5.0-8.0) Ur Specific [place] (1.001-1.035) Urine Protein (NEGATIVE) mg/dL Urine Glucose (UA) (NEGATIVE) mg/dL Urine Ketones (NEGATIVE) mg/dL Urine Occult Blood (NEGATIVE) Urine Nitrite (NEGATIVE) Urine Bilirubin (NEGATIVE) Urine Urobilinogen (<2.0) EU/dL Ur Leukocyte Esterase (NEGATIVE) Urine RBC (0-2/HPF) Urine WBC (0-5/HPF) Ur Epithelial Cells (NONE-FEW) Urine Bacteria (NEGATIVE) COVID-19 (JOSAFAT) (NEGATIVE) Med Orders - Current: Current Medications Acetaminophen (Tylenol) 650 mg PO Q4H PRN PRN Reason: Pain (Mild 1-3)/fever Albuterol (Proventil Neb Soln) 2.5 mg NEB Q2H PRN PRN Reason: Shortness Of Breath/wheezing Atorvastatin Calcium (Lipitor) 20 mg PO BEDTIME [facility] Last Admin: 07/24/20 22:06 Dose: 20 mg Documented by: Bisacodyl (Dulcolax) 5 mg PO DAILY PRN PRN Reason: Constipation Diltiazem HCl (Cardizem Cd) 240 mg PO DAILY [facility] Last Admin: 10/14/19 08:30 Dose: 240 mg Documented by: Gabapentin (Neurontin) 900 mg PO TID [facility] Last Admin: 10/14/19 06:11 Dose: 900 mg Documented by: Hydralazine HCl (Apresoline) 20 mg IVPUSH Q4H PRN PRN Reason: Hypertension Lactated Ringer's (Ringers, Lactated) 1,000 mls @ 125 mls/hr IV ASDIRECTED [facility] Last Admin: 10/14/19 06:12 Dose: 125 mls/hr Documented by: Insulin Aspart (Novolog) 0 unit SUBCUT TIDAC [facility]; Protocol Last Admin: 10/14/19 10:01 Dose: Not Given Documented by: Nitroglycerin (Nitrostat) 0.4 mg SL ASDIRECTED PRN PRN Reason: Chest Pain Non-Formulary Medication (Cyanocobalamin (Vitamin B12)) 1,000 mcg PO BID [facility] Last Admin: 10/14/19 08:39 Dose: 1,000 mcg Documented by: Non-Formulary Medication (Fish Oil/Dha/Epa [Fish Oil 1,200 Mg]) 1 tab PO DAILY [facility] Last Admin: 10/14/19 08:39 Dose: Not Given Documented by: Ondansetron HCl (Zofran Odt) 4 mg PO Q4H PRN PRN Reason: nausea, able to take PO Ondansetron HCl (Zofran) 4 mg IVPUSH Q4H PRN PRN Reason: Nausea/Vomiting Rivaroxaban (Xarelto) 15 mg PO DAILY [facility] Last Admin: 10/14/19 08:31 Dose: 15 mg Documented by: Sodium Chloride (Saline Flush) 10 ml FLUSH ASDIRECTED PRN PRN Reason: Keep Vein Open Sodium Chloride (Saline Flush) 2.5 ml FLUSH ASDIRECTED PRN PRN Reason: Keep Vein Open Trazodone HCl (Trazodone) 150 mg PO BEDTIME [facility] Last Admin: 10/13/19 22:41 Dose: 150 mg Documented by: Discontinued Medications Lactated Ringer's (Ringers, Lactated) 1,000 mls @ 999 mls/hr IV .BOLUS ONE Stop: 10/13/19 16:27 Last Admin: 10/13/19 15:32 Dose: 999 mls/hr Documented by: Magnesium Sulfate 2 gm/ Premix 50 mls @ 50 mls/hr IV ONETIME ONE Stop: 10/14/19 00:26 Last Admin: 10/13/19 23:35 Dose: 50 mls/hr Documented by: Iopamidol (Isovue-370 (76%)) 100 ml IVPUSH ONETIME ONE Stop: 10/13/19 17:39 Last Admin: 10/13/19 17:39 Dose: 100 ml Documented by: Rivaroxaban (Xarelto) 15 mg PO DAILY [facility]
[2019-10-14] MEDS ORDERED: Aluminum Hydroxide/Magnesium Hydroxide/Simethicone Susp 30 ML Cup PO ONE (11:08)
[2019-10-14] MEDS ORDERED: LORazepam 1 MG Tab PO ONE (11:24)
[2019-10-14] MEDS ORDERED: Aluminum Hydroxide/Magnesium Hydroxide/Simethicone Susp 30 ML Cup PO PRN (12:22)
[2019-10-14] MEDS ORDERED: Losartan 50 MG Tab PO SCH (21:00)
[2019-10-14] MEDS: atorvaSTATin 20 MG Tab PO SCH (22:05)
[2019-10-14] MEDS: traZODone 50 MG Tab PO SCH (22:05)
[2019-10-15 05:53] LABS: CARBON DIOXIDE,CO2 28.8 mmol/L (21.0-32.0); POTASSIUM,K 3.8 mmol/L (3.5-5.1)
[2019-10-15] MEDS ORDERED: Magnesium Sulfate/Water 2 GM in Premix Bag 1 BAG IV ONE (05:57)
[2019-10-15] MEDS: Gabapentin 300 MG Cap PO SCH ×2 (06:22→14:21)
[2019-10-15] MEDS: Insulin Aspart 100 Units/ML 3 ML Pen SUBCUT SCH ×2 (07:36→12:24)
[2019-10-15] MEDS: FISH OIL PO SCH (08:07)
[2019-10-15] MEDS: DHA PO SCH (08:07)
[2019-10-15] MEDS: EPA PO SCH (08:07)
[2019-10-15] MEDS: Rivaroxaban 15 MG Tab PO SCH (08:08)
[2019-10-15] MEDS: Diltiazem 120 MG Cap.CD PO SCH (08:09)
[2019-10-15] MEDS ORDERED: Ciprofloxacin 250 MG Tab PO SCH (09:00)
[2019-10-15] MEDS ORDERED: Cyanocobalamin (Vitamin B12) 500 MCG Tab PO SCH (09:00)
--- NOTE | 2019-10-15 11:37 | PCM.DCSUM1 ---
Discharge Summary - Discharge Data Discharge Date: 10/15/19 Discharge Disposition: Home, Self-Care 01 Condition: Good - Referral to Home Health Primary Care Physician: Earle Terry MD - Discharge Diagnosis/Problem(s) (1) Abdominal pain SNOMED Code(s): 79601576 ICD Code: R10.9 - UNSPECIFIED ABDOMINAL PAIN Status: Acute Current Visit: No (2) Hyponatremia SNOMED Code(s): 12256844 ICD Code: E87.1 - HYPO-OSMOLALITY AND HYPONATREMIA Status: Acute Current Visit: No (3) Lactic acidosis SNOMED Code(s): 48699259 ICD Code: E87.2 - ACIDOSIS Status: Acute Current Visit: Yes - Patient Instructions Diet: Heart Healthy Diet Activity: As Tolerated Showering/Bathing: May Shower Notify Provider of: Fever, Increased Pain, Swelling and Redness, Drainage, Nausea and/or Vomiting - Discharge Plan *PRESCRIPTION DRUG MONITORING PROGRAM REVIEWED*: No *COPY OF PRESCRIPTION DRUG MONITORING REPORT IN PATIENT LIVIA: No Prescriptions/Med Rec: Ciprofloxacin [Ciprofloxacin HCl] 250 mg PO BID #5 tablet Home Medications: Home Meds Nateglinide 120 mg PO TIDAC 08/30/14 [History] atorvaSTATin [Lipitor] 20 mg PO BEDTIME 08/30/14 [History] metFORMIN HCl [Metformin ER Osmotic] 2,000 mg PO PCBREAKFAST 08/30/14 [History] Diltiazem [Cardizem CD] 240 mg PO BRK #30 cap.cd 10/20/14 [Rx] Fish Oil/DHA/EPA [Fish Oil 1,200 MG] 1 tab PO DAILY 06/10/17 [History] Gabapentin [Neurontin] 900 mg PO TID 06/10/17 [History] Losartan Potassium 25 mg PO BEDTIME 06/10/17 [History] traZODone HCl [Trazodone HCl] 150 mg PO BEDTIME 06/10/17 [History] Rivaroxaban [Xarelto] 15 mg PO DAILY 07/29/18 [History] Cyanocobalamin (Vitamin B12) [Vitamin B12] 1,000 mcg PO BID 10/01/19 [History] Nitroglycerin 0.4 mg SL ASDIRECTED PRN 10/01/19 [History] Vit A/Vit C/Vit E/Zinc/Copper [Preservision] 1 tab PO BID 10/01/19 [History] Acetaminophen [Tylenol Extra Strength] 1 - 2 tab PO Q6H PRN 10/03/19 [History] Ciprofloxacin [Ciprofloxacin HCl] 250 mg PO BID #5 tablet 10/15/19 [Rx] Oxygen Therapy Mode: Room Air Forms: ED Department Discharge Referrals: Earle Terry MD [Primary Care Provider] - - Patient Data Vitals - Most Recent: Last Vital Signs Temp 35.9 C L 10/15/19 07:35 Pulse 80 10/15/19 08:09 Resp 16 10/15/19 03:41 BP 138/78 10/15/19 08:09 Pulse Ox 94 L 10/15/19 07:35 Weight - Most Recent: 73.2 kg I&O - Last 24 hours: Intake & Output 10/14/19 10/15/19 10/15/19 22:59 06:59 14:59 Intake Total 350 250 Output Total 1300 1425 Balance -950 -1175 Lab Results - Last 24 hrs: Laboratory Results - last 24 hr 10/14/19 10/14/19 10/15/19 Range/Units 11:51 17:33 05:22 WBC (4.0-11.0) K/uL RBC (4.30-5.90) M/uL Hgb (12.0-16.0) g/dL Hct (36.0-46.0) % MCV (80.0-98.0) fL MCH (27.0-32.0) pg MCHC (31.0-37.0) g/dL RDW Std Deviation (28.0-62.0) fl RDW Coeff of Yonas (11.0-15.0) % Plt Count (150-400) K/uL MPV (7.40-12.00) fL Neut % (Auto) (48.0-80.0) % Lymph % (Auto) (16.0-40.0) % [place] % (Auto) (0.0-15.0) % Eos % (Auto) (0.0-7.0) % Baso % (Auto) (0.0-1.5) % Neut # (Auto) (1.4-5.7) K/uL Lymph # (Auto) (0.6-2.4) K/uL [place] # (Auto) (0.0-0.8) K/uL Eos # (Auto) (0.0-0.7) K/uL Baso # (Auto) (0.0-0.1) K/uL Nucleated RBC % /100WBC Nucleated RBCs # K/uL Sodium 135 L (136-145) mmol/L Potassium 3.8 (3.5-5.1) mmol/L Chloride 100 (98-107) mmol/L Carbon Dioxide 28.8 (21.0-32.0) mmol/L BUN 11 (7.0-18.0) mg/dL Creatinine 0.9 (0.6-1.0) mg/dL Est Cr Clr Drug Dosing 49.50 mL/min Estimated GFR (MDRD) 59.8 ml/min Glucose 94 (74-106) mg/dL POC Glucose 238 H 134 H (60-110) mg/dL Calcium 8.7 (8.5-10.1) mg/dL Phosphorus 3.2 (2.6-4.7) mg/dL Magnesium 1.5 L (1.8-2.4) mg/dL 10/15/19 10/15/19 Range/Units 05:22 06:22 WBC 4.68 (4.0-11.0) K/uL RBC 3.89 L (4.30-5.90) M/uL Hgb 11.5 L (12.0-16.0) g/dL Hct 34.1 L (36.0-46.0) % MCV 87.7 (80.0-98.0) fL MCH 29.6 (27.0-32.0) pg MCHC 33.7 (31.0-37.0) g/dL RDW Std Deviation 47.1 (28.0-62.0) fl RDW Coeff of Yonas 15 (11.0-15.0) % Plt Count 180 (150-400) K/uL MPV 10.50 (7.40-12.00) fL Neut % (Auto) 61.6 (48.0-80.0) % Lymph % (Auto) 24.1 (16.0-40.0) % [place] % (Auto) 13.0 (0.0-15.0) % Eos % (Auto) 0.9 (0.0-7.0) % Baso % (Auto) 0.4 (0.0-1.5) % Neut # (Auto) 2.9 (1.4-5.7) K/uL Lymph # (Auto) 1.1 (0.6-2.4) K/uL [place] # (Auto) 0.6 (0.0-0.8) K/uL Eos # (Auto) 0.0 (0.0-0.7) K/uL Baso # (Auto) 0.0 (0.0-0.1) K/uL Nucleated RBC % 0.0 /100WBC Nucleated RBCs # 0 K/uL Sodium (136-145) mmol/L Potassium (3.5-5.1) mmol/L Chloride (98-107) mmol/L Carbon Dioxide (21.0-32.0) mmol/L BUN (7.0-18.0) mg/dL Creatinine (0.6-1.0) mg/dL Est Cr Clr Drug Dosing mL/min Estimated GFR (MDRD) ml/min Glucose (74-106) mg/dL POC Glucose 84 (60-110) mg/dL Calcium (8.5-10.1) mg/dL Phosphorus (2.6-4.7) mg/dL Magnesium (1.8-2.4) mg/dL VAL[facility] Results - Last 24 hrs: Microbiology 10/13/19 16:20 Urine Culture - Final Urine, Clean Catch Escherichia Coli Med Orders - Current: Current Medications Acetaminophen (Tylenol) 650 mg PO Q4H PRN PRN Reason: Pain (Mild 1-3)/fever Al Hydroxide/Mg Hydroxide (Mag-Al Plus) 30 ml PO Q6H PRN PRN Reason: Heartburn Albuterol (Proventil Neb Soln) 2.5 mg NEB Q2H PRN PRN Reason: Shortness Of Breath/wheezing Atorvastatin Calcium (Lipitor) 20 mg PO BEDTIME [facility] Last Admin: 10/14/19 22:05 Dose: 20 mg Documented by: Bisacodyl (Dulcolax) 5 mg PO DAILY PRN PRN Reason: Constipation Ciprofloxacin (Ciprofloxacin Hcl) 250 mg PO BID [facility] Last Admin: 10/15/19 08:07 Dose: 250 mg Documented by: Cyanocobalamin (Vitamin B12) 1,000 mcg PO BID [facility] Last Admin: 10/15/19 08:09 Dose: 1,000 mcg Documented by: Diltiazem HCl (Cardizem Cd) 240 mg PO DAILY [facility] Last Admin: 10/15/19 08:09 Dose: 240 mg Documented by: Gabapentin (Neurontin) 900 mg PO TID [facility] Last Admin: 10/15/19 06:22 Dose: 900 mg Documented by: Hydralazine HCl (Apresoline) 20 mg IVPUSH Q4H PRN PRN Reason: Hypertension Insulin Aspart (Novolog) 0 unit SUBCUT TIDAC [facility]; Protocol Last Admin: 10/15/19 07:36 Dose: Not Given Documented by: Losartan Potassium (Cozaar) 25 mg PO BEDTIME [facility] Last Admin: 10/14/19 22:04 Dose: 25 mg Documented by: Nitroglycerin (Nitrostat) 0.4 mg SL ASDIRECTED PRN PRN Reason: Chest Pain Non-Formulary Medication (Fish Oil/Dha/Epa [Fish Oil 1,200 Mg]) 1 tab PO DAILY [facility] Last Admin: 10/15/19 08:07 Dose: Not Given Documented by: Ondansetron HCl (Zofran Odt) 4 mg PO Q4H PRN PRN Reason: nausea, able to take PO Ondansetron HCl (Zofran) 4 mg IVPUSH Q4H PRN PRN Reason: Nausea/Vomiting Rivaroxaban (Xarelto) 15 mg PO DAILY [facility] Last Admin: 10/15/19 08:08 Dose: 15 mg Documented by: Sodium Chloride (Saline Flush) 10 ml FLUSH ASDIRECTED PRN PRN Reason: Keep Vein Open Sodium Chloride (Saline Flush) 2.5 ml FLUSH ASDIRECTED PRN PRN Reason: Keep Vein Open Trazodone HCl (Trazodone) 150 mg PO BEDTIME [facility] Last Admin: 10/14/19 22:05 Dose: 150 mg Documented by: Discontinued Medications Al Hydroxide/Mg Hydroxide (Mag-Al Plus) 30 ml PO ONETIME ONE Stop: 10/14/19 11:09 Last Admin: 10/14/19 11:36 Dose: 30 ml Documented by: Lactated Ringer's (Ringers, Lactated) 1,000 mls @ 999 mls/hr IV .BOLUS ONE Stop: 10/13/19 16:27 Last Admin: 10/13/19 15:32 Dose: 999 mls/hr Documented by: Lactated Ringer's (Ringers, Lactated) 1,000 mls @ 125 mls/hr IV ASDIRECTED [facility] Last Admin: 10/14/19 06:12 Dose: 125 mls/hr Documented by: Magnesium Sulfate 2 gm/ Premix 50 mls @ 50 mls/hr IV ONETIME ONE Stop: 10/14/19 00:26 Last Admin: 10/13/19 23:35 Dose: 50 mls/hr Documented by: Magnesium Sulfate 2 gm/ Premix 50 mls @ 50 mls/hr IV ONETIME ONE Stop: 10/15/19 06:56 Last Admin: 10/15/19 06:26 Dose: 50 mls/hr Documented by: Iopamidol (Isovue-370 (76%)) 100 ml IVPUSH ONETIME ONE Stop: 10/13/19 17:39 Last Admin: 10/13/19 17:39 Dose: 100 ml Documented by: Lorazepam (Ativan) 1 mg PO ONETIME ONE Stop: 10/14/19 11:25 Last Admin: 10/14/19 11:37 Dose: 1 mg Documented by: Non-Formulary Medication (Cyanocobalamin (Vitamin B12)) 1,000 mcg PO BID [facility] Last Admin: 10/14/19 22:07 Dose: 1,000 mcg Documented by: Rivaroxaban (Xarelto) 15 mg PO DAILY [facility]
[2019-10-15 11:47] VITALS: BP 111/59; PULSE 51
[2019-10-15] MEDS ORDERED: Ciprofloxacin 250 MG Tab PO ONE (14:15)
== END 2019-10-15 14:30 | disposition home or self-care (01) ==
LOC: MW.ED 14:41 → MW.MS 18:35
PROVIDERS: ADMIT Student in an Organized Health Care Education/Training Program; ATTEND Student in an Organized Health Care Education/Training Program
DX: R10.84 Generalized abdominal pain (principal); E87.1 Hypo-osmolality and hyponatremia; E87.2 Acidosis; I11.0 Hypertensive heart disease with heart failure; I50.9 Heart failure, unspecified; E78.5 Hyperlipidemia, unspecified; I48.91 Unspecified atrial fibrillation; E11.9 Type 2 diabetes mellitus without complications; F41.9 Anxiety disorder, unspecified; E78.00 Pure hypercholesterolemia, unspecified; Z20.828 Contact with and (suspected) exposure to other viral communicable diseases; Z88.6 Allergy status to analgesic agent; Z79.84 Long term (current) use of oral hypoglycemic drugs; Z87.19 Personal history of other diseases of the digestive system; Z79.899 Other long term (current) drug therapy
CPT/HCPCS: 36415; 74174; 74176; 80048; 80053; 81001; 82962; 83605; 83690; 83735; 84100; 84484; 85025; 85610; 85730; 87086; 87088; 87186; 93005; 96361; 96374; 96376; 99285; A9270; G0378; J1815; J3475; J7120; Q9967; U0002; 99284

== ENCOUNTER 2020-01-28 12:16 | Emergency (ER) | payer MEDICARE, BC ==
[2020-01-28] MEDS ORDERED: Sodium Chloride 0.9% 10 ML Syringe FLUSH PRN (13:35)
[2020-01-28] MEDS ORDERED: Sodium Chloride 0.9% 2.5 ML Syringe FLUSH PRN (13:35)
[2020-01-28] MEDS ORDERED: Sodium Chloride 0.9% 1,000 ML IV ONE (13:36)
--- NOTE | 2020-01-28 14:20 | CR ---
HISTORY: Epigastric pain. TECHNIQUE: One view of the chest. COMPARISON: 10/03/2019. FINDINGS: Cardiac size within normal limits. No pulmonary vascular congestion. No focal lung infiltrate. No pulmonary edema. No pneumothorax or pleural effusion. IMPRESSION: No focal lung infiltrate. Dictated by Yuniel Pedersen MD @ 01/28/2020 2:19:58 PM Dictated by: Yuniel Pedersen MD @ 01/28/2020 14:20:03 (Electronically Signed)
[2020-01-28 14:35] LABS: BLOOD UREA NITROGEN,BUN 11 mg/dL (7.0-18.0); CARBON DIOXIDE,CO2 25.4 mmol/L (21.0-32.0); CHLORIDE,CL 103 mmol/L (98-107); GLUCOSE RANDOM 92 mg/dL (74-106); LIPASE 187 U/L (73-393); POTASSIUM,K 3.9 mmol/L (3.5-5.1); SODIUM,NA 139 mmol/L (136-145)
--- NOTE | 2020-01-28 14:43 | PCM.PRNOTE ---
- Free Text/Narrative Note: Time: 1405 Rate: 84 Rhythm: afib Intervals: normal ST-T wave: no acute changes Overall: afib
--- NOTE | 2020-01-28 14:57 | EDM.PDOC ---
ED HPI GENERAL MEDICAL PROBLEM - General Chief Complaint: Abdominal Pain Stated Complaint: ABDOMINAL ISSUES Time Seen by Provider: 01/28/20 12:27 Source of Information: Reports: Patient History Limitations: Reports: No Limitations - History of Present Illness INITIAL COMMENTS - FREE TEXT/NARRATIVE: HISTORY AND PHYSICAL: History of present illness: Patient is an 84-year-old female who presents to the ED today with concern of lower abdominal pain that has been ongoing over the past 1 to 2 weeks. Patient states that she has been seen in the clinic and was told that she is likely constipated after an x-ray of her abdomen was performed. Patient states since then she has had 2 enemas with improvement of her symptoms but the pain returns a few days after. Patient states that she has had some constipation with this but her last bowel movement was last night and was normal for her but did have pain relief with a bowel movement. Patient states that her abdominal pain star ortega worsening last night and today so she came to the emergency room to be evaluated. Patient states at this time her abdomen pain is more mild than it was earlier today. Patient states she has a history of atrial fibrillation, hypertension, type 2 diabetes. Patient states she has had a hysterectomy and has had her gallbladder removed. Patient denies any other health history. Patient states she did take some Tylenol without relief of symptoms. Patient denies fever, chills, chest pain, shortness of breath, or cough. Denies headache, neck stiff ness, change in vision, syncope, or near syncope. Denies nausea, vomiting, or dysuria. Has not noted any blood in urine or stool. Patient has been eating and drinking appropriately. Review of systems: As per history of present illness and below otherwise all systems reviewed and negative. Past medical history: As per history of present illness and as reviewed below otherwise noncontributory. Surgical history: As per history of present illness and as reviewed below otherwise noncontributory. Social history: See social history for further information Family history: As per history of present illness and as reviewed below otherwise noncontributory. Physical exam: General: Patient is alert, oriented, and in no acute distress. Patient sitting comfortably on exam table. HEENT: Atraumatic, normocephalic, pupils equal and reactive bilaterally, negative for conjunctival pallor or scleral icterus, mucous membranes moist, TMs normal bilaterally, throat clear, neck supple, nontender, trachea midline. No drooling or trismus noted. No meningeal signs. No hot potato voice noted. Lungs: Clear to auscultation, breath sounds equal bilaterally, chest nontender. Heart: S1S2, regular rate and rhythm without overt murmur Abdomen: Soft, nondistended, nontender. Negative for masses or hepatosplenomegaly. Negative for costovertebral tenderness. Pelvis: Stable nontender. Genitourinary: Deferred. Rectal: Deferred. Skin: Intact, warm, dry. No lesions or rashes noted. Extremities: Atraumatic, negative for cords or calf pain. Neurovascular unremarkable. Neuro: Awake, alert, oriented. Cranial nerves II through XII unremarkable. Cerebellum unremarkable. Motor and sensory unremarkable throughout. Exam nonfocal. Notes: See Dr. Han dictation for EKG interpretation. Throughout stay in ED, patient states her abdominal pain is improved. All incidental findings of her CT scan was discussed with patient and the importance to have this followed up with her primary care provider, Dr. Bosch. Admission for observation was offered to patient but she declines at this time. All risks vs benefits discussed with patient and expresses understanding. Signs and symptoms that would prompt return to the ED thoroughly discussed with patient. Discussed importance for follow-up with her primary care provider. Voices understanding and is agreeable to plan of care. Denies any further questions or concerns at this time. Diagnostics: EKG, CBC, CMP, UA, CXR, Trop, Abd/Pelvic ct w cont, lipase Therapeutics: NS Prescription: Bentyl Impression: Lower abdominal pain, unspecified Plan: 1. Take medication as prescribed. Continue to use Tylenol as directed for pain and discomfort. 2. Follow-up with your primary care provider as discussed. Return to the ED as needed and as discussed. Definitive disposition and diagnosis as appropriate pending reevaluation and review of above. Lower Abdomen Pain Score (Numeric/FACES): 6 - Related Data Allergies Allergy/AdvReac Type Severity Reaction Status Date / Time fentanyl Allergy Hallucinati Verified 01/28/20 13:17 ons oxycodone Allergy Stomach Verified 01/28/20 13:17 Upset perfumes Allergy Intermediate Headache Uncoded 01/28/20 13:17 Home Meds: Home Meds Nateglinide 120 mg PO TIDAC 08/30/14 [History] atorvaSTATin [Lipitor] 20 mg PO BEDTIME 08/30/14 [History] metFORMIN HCl [Metformin ER Osmotic] 2,000 mg PO PCBREAKFAST 08/30/14 [History] Diltiazem [Cardizem CD] 240 mg PO BRK #30 cap.cd 10/20/14 [Rx] Fish Oil/DHA/EPA [Fish Oil 1,200 MG] 1 tab PO DAILY 06/10/17 [History] Gabapentin [Neurontin] 900 mg PO TID 06/10/17 [History] Losartan Potassium 25 mg PO BEDTIME 06/10/17 [History] traZODone HCl [Trazodone HCl] 150 mg PO BEDTIME 06/10/17 [History] Rivaroxaban [Xarelto] 15 mg PO DAILY 07/29/18 [History] Cyanocobalamin (Vitamin B12) [Vitamin B12] 1,000 mcg PO BID 10/01/19 [History] Nitroglycerin 0.4 mg SL ASDIRECTED PRN 10/01/19 [History] Vit A/Vit C/Vit E/Zinc/Copper [Preservision] 1 tab PO BID 10/01/19 [History] Acetaminophen [Tylenol Extra Strength] 1 - 2 tab PO Q6H PRN 10/03/19 [History] Dicyclomine [Bentyl] 20 mg PO TID PRN #20 tab 01/28/20 [Rx] Past Medical History HEENT History: Reports: Macular Degeneration Other HEENT History: wears glasses, rt hearing aid, "slow dry macular degeneration" Cardiovascular History: Reports: Afib, High Cholesterol, Hypertension Other Cardiovascular History: remote svt Respiratory History: Reports: None Gastrointestinal History: Reports: Hemorrhoids Genitourinary History: Reports: None 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: Musculoskeletal History: Reports: Arthritis, Back Pain, Chronic Other Musculoskeletal History: rt shoulder pain, steroid injections in tail bone and shoulder Neurological History: Reports: Neuropathy, Diabetic Other Neuro History: degenerative disc disease, hx of motion sickness Psychiatric History: Reports: Anxiety Endocrine/Metabolic History: Reports: Diabetes, Type II Hematologic History: Reports: Anticoagulation Therapy, Blood Transfusion(s) Other Hematologic History: hx of blood transfusion with hysterectomy Immunologic History: Reports: None Oncologic (Cancer) History: Reports: None Other Oncologic History: supposed to have cut off on 10/01 Dermatologic History: Reports: None - Infectious Disease History Infectious Disease History: Reports: Other (See Below) Other Infectious Disease History: Unknown - Past Surgical History Head Surgeries/Procedures: Reports: None HEENT Surgical History: Reports: Adenoidectomy, Cataract Surgery, Tonsillectomy Cardiovascular Surgical History: Reports: None Respiratory Surgical History: Reports: None GI Surgical History: Reports: None Female Surgical History: Reports: Hysterectomy, Salpingo-Oophorectomy, Tubal Ligation Endocrine Surgical History: Reports: None Neurological Surgical History: Reports: None Musculoskeletal Surgical History: Reports: Knee Replacement Other Musculoskeletal Surgeries/Procedures:: both knees replacement Oncologic Surgical History: Reports: None Dermatological Surgical History: Reports: None Social & Family History - Family History Family Medical History: Noncontributory - Tobacco Use Tobacco Use Status *Q: Former Tobacco User Used Tobacco, but Quit: Yes Month/Year Tobacco Last Used: 03/1959 - Caffeine Use Caffeine Use: Reports: Coffee, Soda - Recreational Drug Use Recreational Drug Use: No ED ROS GENERAL - Review of Systems Review Of Systems: Comprehensive ROS is negative, except as noted in HPI. ED EXAM, GENERAL - Physical Exam Exam: See Below (see dictation) Course - Vital Signs Last Recorded V/S: Last Vital Signs Temp 96.6 F L 01/28/20 13:19 Pulse 78 01/28/20 16:07 Resp 16 01/28/20 16:07 BP 141/84 H 01/28/20 16:07 Pulse Ox 94 L 01/28/20 16:07 - Orders/Labs/Meds Orders: Active Orders 24 hr Category Date Time Status Cardiac Monitoring [RC] . DIRECTED Care 01/28/20 13:36 Active EKG Documentation Completion [RC] STAT Care 01/28/20 13:36 Active Sodium Chloride 0.9% [Saline Flush] Med 01/28/20 13:35 Active 10 ml FLUSH ASDIRECTED PRN Sodium Chloride 0.9% [Saline Flush] Med 01/28/20 13:35 Active 2.5 ml FLUSH ASDIRECTED PRN Saline Lock Insert [OM.PC] Stat Oth 01/28/20 13:35 Ordered Medication Orders Sodium Chloride (Saline Flush) 10 ml FLUSH ASDIRECTED PRN PRN Reason: Keep Vein Open Last Admin: 01/28/20 13:54 Dose: 10 ml Documented by: MURDNIC Sodium Chloride (Saline Flush) 2.5 ml FLUSH ASDIRECTED PRN PRN Reason: Keep Vein Open Last Admin: 01/28/20 13:54 Dose: 2.5 ml Documented by: PIERO Labs: Laboratory Tests 01/28/20 01/28/20 01/28/20 Range/Units 13:54 13:54 14:45 WBC 5.15 (4.0-11.0) K/uL RBC 4.23 L (4.30-5.90) M/uL Hgb 12.6 (12.0-16.0) g/dL Hct 38.3 (36.0-46.0) % MCV 90.5 (80.0-98.0) fL MCH 29.8 (27.0-32.0) pg MCHC 32.9 (31.0-37.0) g/dL RDW Std Deviation 48.3 (28.0-62.0) fl RDW Coeff of Yonas 15 (11.0-15.0) % Plt Count 163 (150-400) K/uL MPV 10.50 (7.40-12.00) fL Neut % (Auto) 71.2 (48.0-80.0) % Lymph % (Auto) 18.3 (16.0-40.0) % Adams % (Auto) 9.5 (0.0-15.0) % Eos % (Auto) 0.6 (0.0-7.0) % Baso % (Auto) 0.4 (0.0-1.5) % Neut # (Auto) 3.7 (1.4-5.7) K/uL Lymph # (Auto) 0.9 (0.6-2.4) K/uL Adams # (Auto) 0.5 (0.0-0.8) K/uL Eos # (Auto) 0.0 (0.0-0.7) K/uL Baso # (Auto) 0.0 (0.0-0.1) K/uL Nucleated RBC % 0.0 /100WBC Nucleated RBCs # 0 K/uL Sodium 139 (136-145) mmol/L Potassium 3.9 (3.5-5.1) mmol/L Chloride 103 (98-107) mmol/L Carbon Dioxide 25.4 (21.0-32.0) mmol/L BUN 11 (7.0-18.0) mg/dL Creatinine 0.9 (0.6-1.0) mg/dL Est Cr Clr Drug Dosing 47.78 mL/min Estimated GFR (MDRD) 59.8 ml/min Glucose 92 (74-106) mg/dL Calcium 9.5 (8.5-10.1) mg/dL Total Bilirubin 0.6 (0.2-1.0) mg/dL AST 10 L (15-37) IU/L ALT 21 (14-63) IU/L Alkaline Phosphatase 61 (46-116) U/L Troponin I < 0.050 (0.000-0.056) ng/mL Total Protein 6.3 L (6.4-8.2) g/dL Albumin 4.0 (3.4-5.0) g/dL Globulin 2.3 L (2.6-4.0) g/dL Albumin/Globulin Ratio 1.7 H (0.9-1.6) Lipase 187 (73-393) U/L Urine Color YELLOW Urine Appearance CLEAR Urine pH 6.0 (5.0-8.0) Ur Specific Lima >= 1.030 (1.001-1.035) Urine Protein NEGATIVE (NEGATIVE) mg/dL Urine Glucose (UA) NEGATIVE (NEGATIVE) mg/dL Urine Ketones NEGATIVE (NEGATIVE) mg/dL Urine Occult Blood NEGATIVE (NEGATIVE) Urine Nitrite NEGATIVE (NEGATIVE) Urine Bilirubin NEGATIVE (NEGATIVE) Urine Urobilinogen 0.2 (<2.0) EU/dL Ur Leukocyte Esterase NEGATIVE (NEGATIVE) Meds: Medications Generic Name Dose Route Start Last Admin Trade Name Freq PRN Reason Stop Dose Admin Sodium Chloride 10 ml 01/28/20 13:35 01/28/20 13:54 Saline Flush FLUSH 10 ml ASDIRECTED PRN Administration Keep Vein Open Sodium Chloride 2.5 ml 01/28/20 13:35 01/28/20 13:54 Saline Flush FLUSH 2.5 ml ASDIRECTED PRN Administration Keep Vein Open Discontinued Medications Generic Name Dose Route Start Last Admin Trade Name Freq PRN Reason Stop Dose Admin Sodium Chloride 1,000 mls @ 500 mls/hr 01/28/20 13:36 01/28/20 13:54 Normal Saline IV 01/28/20 15:35 500 mls/hr STAT ONE Administration Iopamidol 100 ml 01/28/20 16:32 01/28/20 16:32 Isovue Multipack-370 (76%) IVPUSH 01/28/20 16:33 100 ml ONETIME ONE Administration Departure - Departure Time of Disposition: 17:32 Disposition: Home, Self-Care 01 Clinical Impression: Abdominal pain Qualifiers: Abdominal location: lower abdomen, unspecified Qualified Code(s): R10.30 - Lower abdominal pain, unspecified - Discharge Information Referrals: Earle Terry MD [Primary Care Provider] - Forms: ED Department Discharge Additional Instructions: The following information is given to patients seen in the emergency department who are being discharged to home. This information is to outline your options for follow-up care. We provide all patients seen in our emergency department with a follow-up referral. The need for follow-up, as well as the timing and circumstances, are variable depending upon the specifics of your emergency department visit. If you don't have a primary care physician on staff, we will provide you with a referral. We always advise you to contact your personal physician following an emergency department visit to inform them of the circumstance of the visit and for follow-up with them and/or the need for any referrals to a consulting specialist. The emergency department will also refer you to a specialist when appropriate. This referral assures that you have the opportunity for follow-up care with a specialist. All of these measure are taken in an effort to provide you with optimal care, which includes your follow-up. Under all circumstances we always encourage you to contact your private physician who remains a resource for coordinating your care. When calling for follow-up care, please make the office aware that this follow-up is from your recent emergency room visit. If for any reason you are refused follow-up, please contact the [facility] at and asked to speak to the emergency department charge nurse. [facility] [address] [place] [id number] [id number] 1. Take medication as prescribed. Continue to use Tylenol as directed for pain and discomfort. 2. Follow-up with your primary care provider as discussed. Return to the ED as needed and as discussed. Sepsis Event Note (ED) - Evaluation Sepsis Screening Result: No Definite Risk - Focused Exam Vital Signs: Vital Signs Temp Pulse Resp BP Pulse Ox 01/28/20 16:07 78 16 141/84 H 94 L 01/28/20 13:19 96.6 F L 104 H 18 140/99 H 94 L - My Orders Last 24 Hours: My Active Orders 01/28/20 13:35 Sodium Chloride 0.9% [Saline Flush] 10 ml FLUSH ASDIRECTED PRN Sodium Chloride 0.9% [Saline Flush] 2.5 ml FLUSH ASDIRECTED PRN Saline Lock Insert [OM.PC] Stat 01/28/20 13:36 Cardiac Monitoring [RC] . DIRECTED EKG Documentation Completion [RC] STAT - Assessment/Plan Last 24 Hours: My Active Orders 01/28/20 13:35 Sodium Chloride 0.9% [Saline Flush] 10 ml FLUSH ASDIRECTED PRN Sodium Chloride 0.9% [Saline Flush] 2.5 ml FLUSH ASDIRECTED PRN Saline Lock Insert [OM.PC] Stat 01/28/20 13:36 Cardiac Monitoring [RC] . DIRECTED EKG Documentation Completion [RC] STAT
[2020-01-28] MEDS ORDERED: Iopamidol 755 MG/ML 500 ML Multipack Bottle IVPUSH ONE (16:32)
--- NOTE | 2020-01-28 17:01 | CT ---
HISTORY: Right-sided abdominal pain. TECHNIQUE: Intravenous contrast enhanced CT of the abdomen and pelvis. 100 mL of Isovue-370 intravenous contrast administered. COMPARISON: 10/13/2019. 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 The cyst within the right hepatic lobe more inferiorly is unchanged. Prior cholecystectomy. No change in mild prominence of the central biliary system. The prominence may relate to postcholecystectomy reservoir effect. The spleen size upper limits of normal. No change in thickening of the left adrenal gland. There are multiple cystic pancreatic lesions as before. For example, 1.6 cm lesion within the tail of pancreas on image #42 is unchanged. 2 cm lesion within the uncinate process of pancreas on image #56 is unchanged. These may relate to small cystic pancreatic tumors such as side branch IPMNs. Pseudocysts or cysts WOULD BE additional considerations. Lesions such as these are often low-grade and continued surveillance could be performed. There is no acute peripancreatic inflammatory change. Symmetric nephrograms. On the left, there is a renal cyst within the interpolar region of the kidney. There are a few sub cm low-density renal lesions which are too small to characterize though may represent small cysts. There is no hydronephrosis. No obstructive urinary calculus. Urinary bladder is nondistended. Prior hysterectomy. - Small hiatal hernia. No small bowel obstruction. Colonic diverticulosis without diverticulitis. No fluid collection or free air. - No abdominal aortic aneurysm. - Mild atelectasis or fibrosis within the lung bases. No pleural effusion. - Degenerative changes of the spine. No acute fractures. Degenerative changes of the sacroiliac joints and hips. IMPRESSION: 1. No specific identified cause of the patient`s abdominal pain. 2. Cholecystectomy. Mild prominence of the central biliary system may relate to postcholecystectomy reservoir effect changes. 3. No bowel obstruction, acute diverticulitis or definite colitis. 4. Multiple cystic pancreatic lesions which are unchanged. Lesions such as these are typically low-grade and surveillance could be performed. Dictated by Yuniel Pedersen MD @ 01/28/2020 4:59:16 PM Please note that all CT scans at this facility use dose modulation, iterative reconstruction, and/or weight-based dosing when appropriate to reduce radiation dose to as low as reasonably achievable. Dictated by: Yuniel Pedersen MD @ 01/28/2020 16:59:20 (Electronically Signed)
[2020-01-28 19:13] VITALS: BP 168/101; PULSE 103
== END 2020-01-28 17:55 | disposition home or self-care (01) ==
LOC: MW.ED 12:16
DX: R10.30 Lower abdominal pain, unspecified (principal); I48.91 Unspecified atrial fibrillation; E78.00 Pure hypercholesterolemia, unspecified; I10 Essential (primary) hypertension; M19.90 Unspecified osteoarthritis, unspecified site; F41.9 Anxiety disorder, unspecified; E11.9 Type 2 diabetes mellitus without complications; Z88.8 Allergy status to other drugs, medicaments and biological substances; Z79.899 Other long term (current) drug therapy; Z79.84 Long term (current) use of oral hypoglycemic drugs; Z90.710 Acquired absence of both cervix and uterus; Z87.891 Personal history of nicotine dependence
CPT/HCPCS: 71045; 74177; 80053; 81003; 83690; 84484; 85025; 93005; 99284; J7030; Q9967

== ENCOUNTER 2020-09-30 14:17 | Emergency (ER) | payer MEDICARE, BC ==
[2020-09-30] MEDS ORDERED: Octyl 2-Cyanoacrylate 1 Tube TOP ONE (16:35)
[2020-09-30] MEDS ORDERED: Octyl 2-Cyanoacrylate 1 Tube ONE (16:35)
[2020-09-30] MEDS ORDERED: Lidocaine 1% with EPINEPHrine 1:100,000 10 ML MDV INJECT ONE (16:38)
[2020-09-30] MEDS ORDERED: Lidocaine 1% with EPINEPHrine 1:100,000 20 ML MDV ONE (16:40)
[2020-09-30] MEDS ORDERED: Lidocaine 1% with EPINEPHrine 1:100,000 20 ML MDV INJECT ONE (16:46)
--- NOTE | 2020-09-30 16:58 | EDM.PDOC ---
ED HPI GENERAL MEDICAL PROBLEM - General Chief Complaint: Lower Extremity Injury/Pain Stated Complaint: CUT BIG TOE Time Seen by Provider: 09/30/20 15:08 - History of Present Illness INITIAL COMMENTS - FREE TEXT/NARRATIVE: CHIEF COMPLAINT(S): "My toe will not stop bleeding" HISTORY OF PRESENT ILLNESS: This is a 85-year-old woman with a past medical history of atrial fibrillation on anticoagulation who comes to the emergency department with a chief complaint of "my toe will not stop bleeding." The patient is an presents with her son at bedside. She states that last night she must have stubbed her toe and caused some bleeding. The patient's son who was at bedside stated that he was able to stop the bleeding last night however it returned this morning and is continued to bleed. He states that they took her to the clinic where they put some type of gauze on it however it did not seem to stop the bleeding so they came to the emergency department. She currently denies any pain but states that the bleeding is continued. She states that she uses Xarelto. She states that she is able to ambulate on her left big toe without any issues. She denies any pain at all whatsoever. REVIEW OF SYSTEMS: Constitutional: Denies fever, chills. Cardiovascular: Denies chest pain, syncope Respiratory: Denies shortness of breath Skin: Positive for cut to left big toe with bleeding MSK: Denies joint pain Neurological: Denies, dizziness, numbness, tingling, weakness PAST MEDICAL HISTORY: As per history of present illness and as reviewed below otherwise noncontributory. SURGICAL HISTORY: As per history of present illness and as reviewed below otherwise noncontributory SOCIAL HISTORY: As per history of present illness and as reviewed below otherwise noncontributory. FAMILY HISTORY: As per history of present illness and as reviewed below otherwise noncontributory. EXAMINATION OF ORGAN SYSTEMS/BODY AREAS: Constitutional: Blood pressure was 141/70, heart rate 90, respiratory rate 18 with an oxygen saturation of 94 to 95% on room air. Temperature 35.8 temporally General: Elderly woman who does not appear to be in acute distress Psychiatric: Appropriate mood and affect. Eyes: No scleral icterus or conjunctival erythema Cardiovascular: Regular, rate, and rhythm. No gallops, murmurs, or rubs. Bilateral upper extremity pulses symmetric and intact. No peripheral edema. No JVD. There is some slow blood oozing out of a small cut to the patient's distal left big toe Respiratory: Lungs clear to auscultation bilaterally. No wheezes, rales, or rhonchi. Musculoskeletal: Normal range of motion. No deformity of the left foot. No tenderness to palpation. Skin: Small superficial abrasion to left big toe with oozing blood Neurological: Alert, GCS 15 distal sensation is intact MEDICAL DECISION MAKING AND COURSE IN THE ED WITH INTERPRETATION/REVIEW OF DIAGNOSTIC STUDIES: This is a 85-year-old woman with a past medical history of atrial fibrillation on Xarelto who comes to the emergency department with small left big toe abrasion which is continued to bleed given that she is on Xarelto. The patient currently has no deformity or pain I do not believe any imaging is indicated. At this time I did provide the patient with direct pressure for 15 minutes. On reevaluation the patient continued to bleed. Therefore I did discuss with her that I would like to soak some TXA and gauze and then apply pressure for an additional 15 minutes. She was amenable to this plan. Using TXA I did soak some gauze and wrapped it tightly around the patient's big toe and had the son place direct pressure on it for 15 minutes. On reevaluation the patient's toe continued to bleed. Therefore at this time I did offer the patient a small injection of lidocaine with epinephrine to stop the bleeding and then we could place Dermabond over to create a skin barrier. She was amenable to this plan. Using approximately 0.2 cc of lidocaine with epinephrine I did inject the patient's distal left big toe where the bleeding was occurring superficially. The bleeding did stop immediately. After the bleeding did stop I did place Dermabond over the abrasion and let it dry. There was no evidence of active bleeding after this procedure. I did discuss that I would like her to keep her toe in a bandage. She can wash the area but I would not scrub the area. I discussed that this may take some time to heal. I discussed that she should not use a bandage unless it is continued to bleed. She is to return for worsening bleeding. She was amenable discharge at this time and had no further questions DISPOSITION: The patient was discharged home in stable condition. The patient will follow up with primary care physician in 3 to 5 days CONDITION: Fair PROCEDURES: None FINAL IMPRESSION(S)/DIAGNOSES: 1. Acute left big toe bleeding secondary to minor abrasion Darren Padilla M.D. - Related Data Allergies Allergy/AdvReac Type Severity Reaction Status Date / Time fentanyl Allergy Hallucinati Verified 09/30/20 15:00 ons oxycodone Allergy Stomach Verified 09/30/20 15:00 Upset perfumes Allergy Intermediate Headache Uncoded 09/30/20 15:00 Home Meds: Home Meds Nateglinide 120 mg PO TIDAC 08/30/14 [History] atorvaSTATin [Lipitor] 20 mg PO BEDTIME 08/30/14 [History] metFORMIN HCl [Metformin ER Osmotic] 2,000 mg PO PCBREAKFAST 08/30/14 [History] Diltiazem [Cardizem CD] 240 mg PO BRK #30 cap.cd 10/20/14 [Rx] Fish Oil/DHA/EPA [Fish Oil 1,200 MG] 1 tab PO DAILY 06/10/17 [History] Gabapentin [Neurontin] 900 mg PO TID 06/10/17 [History] Losartan Potassium 25 mg PO BEDTIME 06/10/17 [History] traZODone HCl [Trazodone HCl] 150 mg PO BEDTIME 06/10/17 [History] Rivaroxaban [Xarelto] 15 mg PO DAILY 07/29/18 [History] Cyanocobalamin (Vitamin B12) [Vitamin B12] 1,000 mcg PO BID 10/01/19 [History] Nitroglycerin 0.4 mg SL ASDIRECTED PRN 10/01/19 [History] Vit A/Vit C/Vit E/Zinc/Copper [Preservision] 1 tab PO BID 10/01/19 [History] Acetaminophen [Tylenol Extra Strength] 1 - 2 tab PO Q6H PRN 10/03/19 [History] Dicyclomine [Bentyl] 20 mg PO TID PRN #20 tab 01/28/20 [Rx] Past Medical History HEENT History: Reports: Macular Degeneration Other HEENT History: wears glasses, rt hearing aid, "slow dry macular degeneration" Cardiovascular History: Reports: Afib, High Cholesterol, Hypertension Other Cardiovascular History: remote svt Respiratory History: Reports: None Gastrointestinal History: Reports: Hemorrhoids Genitourinary History: Reports: None [employer] History: Reports: Musculoskeletal History: Reports: Arthritis, Back Pain, Chronic Other Musculoskeletal History: rt shoulder pain, steroid injections in tail bone and shoulder Neurological History: Reports: Neuropathy, Diabetic Other Neuro History: degenerative disc disease, hx of motion sickness Psychiatric History: Reports: Anxiety Endocrine/Metabolic History: Reports: Diabetes, Type II Hematologic History: Reports: Anticoagulation Therapy, Blood Transfusion(s) Other Hematologic History: hx of blood transfusion with hysterectomy Immunologic History: Reports: None Oncologic (Cancer) History: Reports: None Other Oncologic History: supposed to have cut off on 10/01 Dermatologic History: Reports: None - Infectious Disease History Infectious Disease History: Reports: Other (See Below) Other Infectious Disease History: Unknown - Past Surgical History Head Surgeries/Procedures: Reports: None HEENT Surgical History: Reports: Adenoidectomy, Cataract Surgery, Tonsillectomy Other HEENT Surgeries/Procedures: Bilateral cataract extraction with Lens implants Cardiovascular Surgical History: Reports: None Respiratory Surgical History: Reports: None GI Surgical History: Reports: None Other GI Surgeries/Procedures: BSO surgery Female Surgical History: Reports: Hysterectomy, Salpingo-Oophorectomy, Tubal Ligation Other Female Surgeries/Procedures: Hysterectomy, 2nd surgery few years later taking Fallopian tubes and ovaries Endocrine Surgical History: Reports: None Neurological Surgical History: Reports: None Other Neurological Surgeries/Procedures: hx spurs removed from vertebrae Musculoskeletal Surgical History: Reports: Knee Replacement Other Musculoskeletal Surgeries/Procedures:: both knees replacement Oncologic Surgical History: Reports: None Dermatological Surgical History: Reports: None Social & Family History - Family History Family Medical History: No Pertinent Family History - Tobacco Use Tobacco Use Status *Q: Never Tobacco User - Caffeine Use Caffeine Use: Reports: Coffee, Soda - Recreational Drug Use Recreational Drug Use: No Review of Systems - Review of Systems Review Of Systems: See Below ED EXAM, GENERAL - Physical Exam Exam: See Below Course - Vital Signs Last Recorded V/S: Last Vital Signs Temp 35.8 C L 09/30/20 15:01 Pulse 92 09/30/20 17:09 Resp 17 09/30/20 17:09 BP 160/90 H 09/30/20 17:09 Pulse Ox 95 09/30/20 17:09 - Orders/Labs/Meds Meds: Medications Discontinued Medications Generic Name Dose Route Start Last Admin Trade Name Freq PRN Reason Stop Dose Admin Lidocaine/Epinephrine 10 ml 09/30/20 16:38 09/30/20 16:45 Lidocaine 1% With Epinephrine 1:100,000 10 Ml Mdv INJECT 09/30/20 16:39 Not Given ONETIME ONE Lidocaine/Epinephrine Confirm 09/30/20 16:40 09/30/20 16:46 Lidocaine 1% With Epinephrine 1:100,000 20 Ml Mdv Administered 09/30/20 16:41 Not Given Dose 20 ml .ROUTE .STK-MED ONE Lidocaine/Epinephrine 20 ml 09/30/20 16:46 09/30/20 16:48 Lidocaine 1% With Epinephrine 1:100,000 20 Ml Mdv INJECT 09/30/20 16:47 20 ml ONETIME ONE Administration Octyl Cyanoacrylate 1 applic 09/30/20 16:35 09/30/20 16:48 Octyl 2-Cyanoacrylate 1 Tube TOP 09/30/20 16:36 1 applic ONETIME ONE Administration Octyl Cyanoacrylate Confirm 09/30/20 16:35 09/30/20 16:45 Octyl 2-Cyanoacrylate 1 Tube Administered 09/30/20 16:36 Not Given Dose 1 applic .ROUTE .STK-MED ONE Tranexamic Acid 1,000 mg 09/30/20 16:04 09/30/20 16:15 Tranexamic Acid 1,000 Mg/10 Ml Amp TOP 09/30/20 16:05 1,000 mg ONETIME STA Administration Departure - Departure Time of Disposition: 16:57 Disposition: Home, Self-Care 01 Condition: Fair Clinical Impression: Bleeding, Toe laceration - Discharge Information *PRESCRIPTION DRUG MONITORING PROGRAM REVIEWED*: No *COPY OF PRESCRIPTION DRUG MONITORING REPORT IN PATIENT LIVIA: No Instructions: Bleeding Precautions When on Anticoagulant Therapy, Adult, Tissue Adhesive Wound Care Referrals: Earle Terry MD [Primary Care Provider] - Forms: ED Department Discharge Additional Instructions: Ms. Garcia you were evaluated today on an emergent basis. At this time we did use epinephrine to stop the bleeding on your big toe. I did put a liquid bandage over this area to hopefully reduce the bleeding. I do recommend that you do rest for the next week or so in order to prevent this area from opening again. You may wash the area but I would not scrub the area. Please change the bandage daily. If there is no blood on the bandage you do not have to keep it wrapped anymore. Please return if there is any redness, swelling, signs of infection including pus drainage. Otherwise please follow-up with your primary care physician in 3 to 5 days. [facility] [address] [place] [id number] [facility] [address] [place] [address] The patient is informed of any results of their evaluation and diagnostic workup and all questions are answered. They are given discharge instructions and return precautions. The patient is stable for discharge. The patient states they un derstand and agree with the plan and that they will return if their symptoms get worse or if they have any new concerns. The following information is given to patients seen in the emergency department who are being discharged to home. This information is to outline your options for follow-up care. We provide all patients seen in our emergency department with a follow-up referral. The need for follow-up, as well as the timing and circumstances, are variable depending upon the specifics of your emergency department visit. If you don't have a primary care physician on staff, we will provide you with a referral. We always advise you to contact your personal physician following an emergency department visit to inform them of the circumstance of the visit and for follow-up with them and/or the need for any referrals to a consulting specialist. The emergency department will also refer you to a specialist when appropriate. This referral assures that you have the opportunity for follow-up care with a specialist. All of these measure are taken in an effort to provide you with optimal care, which includes your follow-up. Under all circumstances we always encourage you to contact your private physician who remains a resource for coordinating your care. When calling for follow-up care, please make the office aware that this follow-up is from your recent emergency room visit. If for any reason you are refused follow-up, please contact the [facility] Emergency Department at and asked to speak to the emergency department charge nurse. Sepsis Event Note (ED) - Evaluation Sepsis Screening Result: No Definite Risk
[2020-09-30 17:09] VITALS: BP 160/90; PULSE 92
== END 2020-09-30 17:10 | disposition home or self-care (01) ==
LOC: MW.ED 14:17
DX: S91.112A Laceration without foreign body of left great toe without damage to nail, initial encounter (principal); R58 Hemorrhage, not elsewhere classified; I48.91 Unspecified atrial fibrillation; E78.00 Pure hypercholesterolemia, unspecified; I10 Essential (primary) hypertension; M19.90 Unspecified osteoarthritis, unspecified site; E11.40 Type 2 diabetes mellitus with diabetic neuropathy, unspecified; Z79.01 Long term (current) use of anticoagulants; Z79.84 Long term (current) use of oral hypoglycemic drugs; Z79.899 Other long term (current) drug therapy; Z88.5 Allergy status to narcotic agent; Z91.048 Other nonmedicinal substance allergy status; W26.8XXA Contact with other sharp object(s), not elsewhere classified, initial encounter
CPT/HCPCS: 12001; 99282; A9270; 99283

== ENCOUNTER 2020-10-05 19:17 | Emergency (ER) | payer MEDICARE, BC ==
[2020-10-05] MEDS ORDERED: Lidocaine 2% Viscous Solution 15 ML Cup ONE (20:03)
[2020-10-05] MEDS ORDERED: Cephalexin 500 MG Cap PO ONE (21:26)
[2020-10-05 21:30] VITALS: PULSE 101
--- NOTE | 2020-10-05 21:32 | EDM.PDOC ---
ED HPI GENERAL MEDICAL PROBLEM - General Chief Complaint: ENT Problem Stated Complaint: NOSE BLEED Time Seen by Provider: 10/05/20 19:55 - History of Present Illness INITIAL COMMENTS - FREE TEXT/NARRATIVE: HISTORY AND PHYSICAL: History of present illness: This is an 85-year-old female with a history significant for atrial fibrillation and currently on Xarelto who presents into the ER today secondary to epistaxis that occurred earlier today. Patient reports in the past that this is happened to her before and required packing of her nares. Patient denies any other symptomatology. Patient has any recent fevers, shakes, chills, nausea, vomiting, diarrhea, dysuria, frequency, urgency, chest pain, shortness of breath, abdominal pain. Patient denies any bleeding from anywhere else. Patient reports that she did not take her Xarelto tonight. Review of systems: As per history of present illness and below otherwise all systems reviewed and negative. Past medical history: As per history of present illness and as reviewed below otherwise noncontributory. Surgical history: As per history of present illness and as reviewed below otherwise noncontributory. Social history: No reported history of drug abuse. Family history: As per history of present illness and as reviewed below otherwise noncontributory. Physical exam: This patient was seen and evaluated during the 2019 SARS-CoV-2 novel coronavirus pandemic period. Community viral transmission is ongoing at time of this encounter and the emergency department is operating under pandemic response procedures. Constitutional: Patient is oriented to person, place, and time. Appears well- developed and well-nourished. No distress. HEENT: Moist mucous membranes Head: Normocephalic and atraumatic Eyes: Right eye exhibits no discharge. Left eye exhibits no discharge. No scleral icterus Neck: Normal range of motion. No tracheal deviation present. Cardiovascular: Irregularly irregular at a heart rate of 105 Pulmonary: Effort normal, no respiratory distress. Abdominal: No distention Musculoskeletal: Normal range of motion Neurologic: Alert and oriented to person, place and time. Skin: Royal, warm and dry. Psychiatric: Normal mood and affect. Behavior is normal. Judgment and thought content normal. Nursing note and vital signs have been reviewed Patient's ER physical exam is significant for active bleeding from her left naris. Patient was allowed to blow her nose under left naris was reexamined. No site of active bleeding was identified secondary to significant amount of blood within her nares. A epi stat nasal balloon was placed inside her left naris, 5 mm, with adequate resolution of the active bleeding. Diagnostics: [] Therapeutics: 5 cc of viscous lidocaine was inserted into the patient's left naris. A epi st at nasal balloon was placed inside her left naris, 5 mm, with adequate resolution of the active bleeding. Assessment and plan: 85-year-old female on Xarelto presents ER today secondary to epistaxis. Epistaxis was controlled with a nasal balloon that was inserted. Patient will be started on Keflex 500 mg twice a day for prophylactic antibiotics. Patient has been instructed to follow-up with her doctor in 3 days for balloon removal and reevaluation of her heart rate. Patient's heart rate in the ED was initially accelerated however after patient's epistaxis was controlled and she would like to relax in the room, her heart rate had dropped down to 101. Patient reports that she has been taking her diltiazem at home and did take it earlier today. Patient feels comfortable with the plan at this time to be discharged home and follow-up with her primary care physician as instructed. Reassessment at the time of disposition demonstrates that the patient is in no acute distress. The patient has remained stable throughout the entire ED visit and is without objective evidence for acute process requiring urgent intervention or hospitalization. The patient is stable for discharge, counseling is provided as documented above, discussed symptomatic treatment and specific conditions for return. I have spoken with the patient/caregiver and discussed todays findings, in addition to providing specific details for the plan of care. Questions are answered and there is agreement with the plan. Definitive disposition and diagnosis as appropriate pending reevaluation and review of above. - Related Data Allergies Allergy/AdvReac Type Severity Reaction Status Date / Time fentanyl Allergy Hallucinati Verified 09/30/20 15:00 ons oxycodone Allergy Stomach Verified 09/30/20 15:00 Upset perfumes Allergy Intermediate Headache Uncoded 09/30/20 15:00 Home Meds: Home Meds Nateglinide 120 mg PO TIDAC 08/30/14 [History] atorvaSTATin [Lipitor] 20 mg PO BEDTIME 08/30/14 [History] metFORMIN HCl [Metformin ER Osmotic] 2,000 mg PO PCBREAKFAST 08/30/14 [History] Diltiazem [Cardizem CD] 240 mg PO BRK #30 cap.cd 10/20/14 [Rx] Fish Oil/DHA/EPA [Fish Oil 1,200 MG] 1 tab PO DAILY 06/10/17 [History] Gabapentin [Neurontin] 900 mg PO TID 06/10/17 [History] Losartan Potassium 25 mg PO BEDTIME 06/10/17 [History] traZODone HCl [Trazodone HCl] 150 mg PO BEDTIME 06/10/17 [History] Rivaroxaban [Xarelto] 15 mg PO DAILY 07/29/18 [History] Cyanocobalamin (Vitamin B12) [Vitamin B12] 1,000 mcg PO BID 10/01/19 [History] Nitroglycerin 0.4 mg SL ASDIRECTED PRN 10/01/19 [History] Vit A/Vit C/Vit E/Zinc/Copper [Preservision] 1 tab PO BID 10/01/19 [History] Acetaminophen [Tylenol Extra Strength] 1 - 2 tab PO Q6H PRN 10/03/19 [History] Dicyclomine [Bentyl] 20 mg PO TID PRN #20 tab 01/28/20 [Rx] cephALEXin [Keflex] 500 mg PO Q12HR #10 cap 10/05/20 [Rx] Past Medical History HEENT History: Reports: Macular Degeneration Other HEENT History: wears glasses, rt hearing aid, "slow dry macular degeneration" Cardiovascular History: Reports: Afib, High Cholesterol, Hypertension Other Cardiovascular History: remote svt Respiratory History: Reports: None Gastrointestinal History: Reports: Hemorrhoids Genitourinary History: Reports: None 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: Musculoskeletal History: Reports: Arthritis, Back Pain, Chronic Other Musculoskeletal History: rt shoulder pain, steroid injections in tail bone and shoulder Neurological History: Reports: Neuropathy, Diabetic Other Neuro History: degenerative disc disease, hx of motion sickness Psychiatric History: Reports: Anxiety Endocrine/Metabolic History: Reports: Diabetes, Type II Hematologic History: Reports: Anticoagulation Therapy, Blood Transfusion(s) Other Hematologic History: hx of blood transfusion with hysterectomy Immunologic History: Reports: None Oncologic (Cancer) History: Reports: None Other Oncologic History: supposed to have cut off on 10/01 Dermatologic History: Reports: None - Infectious Disease History Infectious Disease History: Reports: Other (See Below) Other Infectious Disease History: Unknown - Past Surgical History Head Surgeries/Procedures: Reports: None HEENT Surgical History: Reports: Adenoidectomy, Cataract Surgery, Tonsillectomy Other HEENT Surgeries/Procedures: Bilateral cataract extraction with Lens implants Cardiovascular Surgical History: Reports: None Respiratory Surgical History: Reports: None GI Surgical History: Reports: None Other GI Surgeries/Procedures: BSO surgery Female Surgical History: Reports: Hysterectomy, Salpingo-Oophorectomy, Tubal Ligation Other Female Surgeries/Procedures: Hysterectomy, 2nd surgery few years later taking Fallopian tubes and ovaries Endocrine Surgical History: Reports: None Neurological Surgical History: Reports: None Other Neurological Surgeries/Procedures: hx spurs removed from vertebrae Musculoskeletal Surgical History: Reports: Knee Replacement Other Musculoskeletal Surgeries/Procedures:: both knees replacement Oncologic Surgical History: Reports: None Dermatological Surgical History: Reports: None Social & Family History - Family History Family Medical History: No Pertinent Family History - Caffeine Use Caffeine Use: Reports: Coffee, Soda ED ROS GENERAL - Review of Systems Review Of Systems: See Below ED EXAM, GENERAL - Physical Exam Exam: See Below Course - Vital Signs Last Recorded V/S: Last Vital Signs Temp 98.3 F 10/05/20 19:52 Pulse 118 H 10/05/20 19:52 Resp 18 10/05/20 19:52 BP 151/76 H 10/05/20 19:52 Pulse Ox 96 10/05/20 19:52 - Orders/Labs/Meds Orders: Active Orders 24 hr Category Date Time Status cephALEXin [Keflex] Med 10/05/20 21:26 Once 500 mg PO ONETIME ONE Meds: Medications Discontinued Medications Generic Name Dose Route Start Last Admin Trade Name Tali PRN Reason Stop Dose Admin Lidocaine HCl Confirm 10/05/20 20:03 Lidocaine 2% Viscous Solution 15 Ml Cup Administered 10/05/20 20:04 Dose 15 ml .ROUTE .STK-MED ONE Departure - Departure Time of Disposition: 21:30 Disposition: Home, Self-Care 01 Condition: Good Clinical Impression: Epistaxis, Anticoagulated Atrial fibrillation Qualifiers: Atrial fibrillation type: persistent (not longstanding) Qualified Code(s): I48.19 - Other persistent atrial fibrillation; I48.1 - Persistent atrial fibrillation - Discharge Information Instructions: Nosebleed, [id number] Referrals: Earle Terry MD [Primary Care Provider] - Additional Instructions: You were seen and evaluated in the ER today secondary to a nosebleed while on anticoagulation for your atrial fibrillation. We have inserted and inflated a nasal balloon inside your left nose. This will need to stay in place for the next 3 days. Please make an appointment to see your doctor in 3 days for removal of the nasal balloon and for reevaluation of your atrial fibrillation. You should resume your anticoagulation therapy tomorrow. You will be given a prescription for Keflex 500 mg to take twice a day until the balloon is removed. The following information is given to patients seen in the emergency department who are being discharged to home. This information is to outline your options for follow-up care. We provide all patients seen in our emergency department with a follow-up referral. The need for follow-up, as well as the timing and circumstances, are variable depending upon the specifics of your emergency department visit. If you don't have a primary care physician on staff, we will provide you with a referral. We always advise you to contact your personal physician following an emergency department visit to inform them of the circumstance of the visit and for follow-up with them and/or the need for any referrals to a consulting specialist. The emergency department will also refer you to a specialist when appropriate. This referral assures that you have the opportunity for follow-up care with a specialist. All of these measure are taken in an effort to provide you with optimal care, which includes your follow-up. Under all circumstances we always encourage you to contact your private physician who remains a resource for coordinating your care. When calling for follow-up care, please make the office aware that this follow-up is from your recent emergency room visit. If for any reason you are refused follow-up, please contact the [facility] Emergency Department at and asked to speak to the emergency department charge nurse. [facility] [address] [place] [id number] [facility] [address] [place] [id number] Sepsis Event Note (ED) - Evaluation Sepsis Screening Result: No Definite Risk - Focused Exam Vital Signs: Vital Signs Temp Pulse Resp BP Pulse Ox 10/05/20 19:52 98.3 F 118 H 18 151/76 H 96 - My Orders Last 24 Hours: My Active Orders 10/05/20 21:26 cephALEXin [Keflex] 500 mg PO ONETIME ONE - Assessment/Plan Last 24 Hours: My Active Orders 10/05/20 21:26 cephALEXin [Keflex] 500 mg PO ONETIME ONE
[2020-10-05 21:49] VITALS: BP 150/81
== END 2020-10-05 21:49 | disposition home or self-care (01) ==
LOC: MW.ED 19:17
DX: R04.0 Epistaxis (principal); I48.19 Other persistent atrial fibrillation; I10 Essential (primary) hypertension; E78.00 Pure hypercholesterolemia, unspecified; M19.90 Unspecified osteoarthritis, unspecified site; E11.9 Type 2 diabetes mellitus without complications; Z88.5 Allergy status to narcotic agent; Z88.8 Allergy status to other drugs, medicaments and biological substances; Z91.048 Other nonmedicinal substance allergy status; Z79.01 Long term (current) use of anticoagulants; Z79.84 Long term (current) use of oral hypoglycemic drugs; Z79.899 Other long term (current) drug therapy
CPT/HCPCS: 30903; 99283; A9270; 30901

== ENCOUNTER 2021-03-27 01:48 | Emergency (ER) | payer MEDICARE, BC ==
--- NOTE | 2021-03-27 02:11 | EDM.PDOC ---
ED HPI GENERAL MEDICAL PROBLEM - General Chief Complaint: Skin Complaint Stated Complaint: BLEEDING FROM RECENT SURGERY Time Seen by Provider: 03/27/21 02:05 - History of Present Illness INITIAL COMMENTS - FREE TEXT/NARRATIVE: CHIEF COMPLAINT(S): Postoperative bleeding HISTORY OF PRESENT ILLNESS: This is a 85-year-old woman with a past medical history of atrial fibrillation on Eliquis who comes to the emergency department with a chief complaint of postoperative bleeding. The patient states that she had a skin cancer removed today on the back of her knee. She states that it was not bleeding and it was controlled however when they got home and started to bleed again. She states that she went back to her computing tutor and they applied pressure and the bleeding stopped however it continues to bleed at home and is soaking through each gauze that they have put on. They have tried to apply pressure and nothing seems to be stopping the bleeding. She denies any dizziness or any other complaints. REVIEW OF SYSTEMS: Cardiovascular: Positive for bleeding wound on the posterior knee. Denies chest pain, syncope Respiratory: Denies shortness of breath Skin: Positive for postoperative wound on the right posterior knee MSK: Denies joint pain Neurological: Denies blurred vision, numbness, tingling PAST MEDICAL HISTORY: As per history of present illness and as reviewed below otherwise noncontributory. SURGICAL HISTORY: As per history of present illness and as reviewed below otherwise noncontributory. SOCIAL HISTORY: As per history of present illness and as reviewed below otherwise noncontributory. FAMILY HISTORY: As per history of present illness and as reviewed below otherwise noncontributory. EXAMINATION OF ORGAN SYSTEMS/BODY AREAS: Constitutional: Blood pressure is 149/96, heart rate 101, respiratory rate 17 with an oxygen saturation 96% on room air. Temperature 36.1 General: Elderly woman who is in no acute distress Psychiatric: Appropriate mood and affect. Eyes: No scleral icterus or conjunctival erythema Cardiovascular: Regular, rate, and rhythm. No gallops, murmurs, or rubs. Bilateral upper extremity pulses symmetric and intact. There is oozing blood on the posterior aspect of the patient's right knee Respiratory: Lungs clear to auscultation bilaterally. No wheezes, rales, or rhonchi. Musculoskeletal: Normal range of motion. Skin: There is an approximate 4 cm postoperative wound with stitches on the posterior aspect of the right knee. Neurological: Alert, GCS 15 MEDICAL DECISION MAKING AND COURSE IN THE ED WITH INTERPRETATION/REVIEW OF DIAGNOSTIC STUDIES: This is a 85-year-old woman with a past medical history of atrial fibrillation on Eliquis who comes to the emergency department with postoperative wound bleeding. At this time will apply Surgifoam and apply pressure and evaluate if the patient's bleeding stops. On reevaluation patient bleeding had decreased however she continues to ooze a small amount of blood. Therefore at this time I did discuss with patient that we could give lidocaine with epinephrine to help stop the bleeding. She was amenable to this plan. The area was cleaned in a sterile fashion and approximately 2 cc were injected into the wound and an occlusive dressing was placed. We will reevaluate after this. The patient to the wound no longer continues to bleed. At this time I did discuss strict return precautions with the patient. I encouraged them to follow-up with their computing tutor for reevaluation. They were amenable to discharge and had no further questions DISPOSITION: The patient was discharged home in stable condition. The patient will follow up with dermatology CONDITION:Good PROCEDURES: None FINAL IMPRESSION(S)/DIAGNOSES: 1. Acute post operative wound bleeding Darren Padilla M.D. - Related Data Allergies Allergy/AdvReac Type Severity Reaction Status Date / Time fentanyl Allergy Hallucinati Verified 09/30/20 15:00 ons oxycodone Allergy Stomach Verified 09/30/20 15:00 Upset perfumes Allergy Intermediate Headache Uncoded 09/30/20 15:00 Home Meds: Home Meds Nateglinide 120 mg PO TIDAC 08/30/14 [History] atorvaSTATin [Lipitor] 20 mg PO BEDTIME 08/30/14 [History] metFORMIN HCl [Metformin ER Osmotic] 2,000 mg PO PCBREAKFAST 08/30/14 [History] Diltiazem [Cardizem CD] 240 mg PO BRK #30 cap.cd 10/20/14 [Rx] Fish Oil/DHA/EPA [Fish Oil 1,200 MG] 1 tab PO DAILY 06/10/17 [History] Gabapentin [Neurontin] 900 mg PO TID 06/10/17 [History] Losartan Potassium 25 mg PO BEDTIME 06/10/17 [History] traZODone HCl [Trazodone HCl] 150 mg PO BEDTIME 06/10/17 [History] Rivaroxaban [Xarelto] 15 mg PO DAILY 07/29/18 [History] Cyanocobalamin (Vitamin B12) [Vitamin B12] 1,000 mcg PO BID 10/01/19 [History] Nitroglycerin 0.4 mg SL ASDIRECTED PRN 10/01/19 [History] Vit A/Vit C/Vit E/Zinc/Copper [Preservision] 1 tab PO BID 10/01/19 [History] Acetaminophen [Tylenol Extra Strength] 1 - 2 tab PO Q6H PRN 10/03/19 [History] Dicyclomine [Bentyl] 20 mg PO TID PRN #20 tab 01/28/20 [Rx] cephALEXin [Keflex] 500 mg PO Q12HR #10 cap 10/05/20 [Rx] Past Medical History HEENT History: Reports: Macular Degeneration Other HEENT History: wears glasses, rt hearing aid, "slow dry macular degeneration" Cardiovascular History: Reports: Afib, High Cholesterol, Hypertension Other Cardiovascular History: remote svt Respiratory History: Reports: None Gastrointestinal History: Reports: Hemorrhoids Genitourinary History: Reports: None 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: Musculoskeletal History: Reports: Arthritis, Back Pain, Chronic Other Musculoskeletal History: rt shoulder pain, steroid injections in tail bone and shoulder Neurological History: Reports: Neuropathy, Diabetic Other Neuro History: degenerative disc disease, hx of motion sickness Psychiatric History: Reports: Anxiety Endocrine/Metabolic History: Reports: Diabetes, Type II Hematologic History: Reports: Anticoagulation Therapy, Blood Transfusion(s) Other Hematologic History: hx of blood transfusion with hysterectomy Immunologic History: Reports: None Oncologic (Cancer) History: Reports: None Other Oncologic History: supposed to have cut off on 10/01 Dermatologic History: Reports: None - Infectious Disease History Infectious Disease History: Reports: Other (See Below) Other Infectious Disease History: Unknown - Past Surgical History Head Surgeries/Procedures: Reports: None HEENT Surgical History: Reports: Adenoidectomy, Cataract Surgery, Tonsillectomy Other HEENT Surgeries/Procedures: Bilateral cataract extraction with Lens implants Cardiovascular Surgical History: Reports: None Respiratory Surgical History: Reports: None GI Surgical History: Reports: None Other GI Surgeries/Procedures: BSO surgery Female Surgical History: Reports: Hysterectomy, Salpingo-Oophorectomy, Tubal Ligation Other Female Surgeries/Procedures: Hysterectomy, 2nd surgery few years later taking Fallopian tubes and ovaries Endocrine Surgical History: Reports: None Neurological Surgical History: Reports: None Other Neurological Surgeries/Procedures: hx spurs removed from vertebrae Musculoskeletal Surgical History: Reports: Knee Replacement Other Musculoskeletal Surgeries/Procedures:: both knees replacement Oncologic Surgical History: Reports: None Dermatological Surgical History: Reports: None Social & Family History - Family History Family Medical History: No Pertinent Family History - Caffeine Use Caffeine Use: Reports: Coffee, Soda ED ROS GENERAL - Review of Systems Review Of Systems: See Below ED EXAM, GENERAL - Physical Exam Exam: See Below Course - Vital Signs Last Recorded V/S: Last Vital Signs Temp 36.1 C 03/27/21 01:57 Pulse 97 03/27/21 04:10 Resp 17 03/27/21 01:57 BP 132/62 03/27/21 04:10 Pulse Ox 96 03/27/21 04:10 - Orders/Labs/Meds Meds: Medications Discontinued Medications Generic Name Dose Route Start Last Admin Trade Name Tali PRN Reason Stop Dose Admin Lidocaine/Epinephrine 20 ml 03/27/21 02:59 03/27/21 03:14 Lidocaine 1% With Epinephrine 1:100,000 20 Ml Mdv INJECT 03/27/21 03:00 20 ml ONETIME ONE Administration Lidocaine/Epinephrine Confirm 03/27/21 02:57 03/27/21 03:00 Lidocaine 1% With Epinephrine 1:100,000 20 Ml Mdv Administered 03/27/21 02:58 Not Given Dose 20 ml .ROUTE .STK-MED ONE Departure - Departure Time of Disposition: 03:55 Disposition: Home, Self-Care 01 Condition: Fair Clinical Impression: Bleeding from wound - Discharge Information *PRESCRIPTION DRUG MONITORING PROGRAM REVIEWED*: No *COPY OF PRESCRIPTION DRUG MONITORING REPORT IN PATIENT LIVIA: No Instructions: Bleeding Precautions When on Anticoagulant Therapy, Adult, Uncontrolled Wound Bleeding Referrals: Earle Terry MD [Primary Care Provider] - Forms: ED Department Discharge Additional Instructions: You were evaluated today on an emergent basis. At this time there was some bleeding coming from the surgical wound that you had earlier today. In order to stop the bleeding we did clean the area and injected it with some Lidocaine with Epinephrine. This did seem to stop the bleeding. After the bleeding stopped we did place a foam that causes clotting so if it continues to bleed this should hopefully stop the bleeding. Tomorrow morning I like you to clean it with soap and water and as discussed monitor for signs of infection such as redness or pus drainage. If it bleeds again I did give you the same clotting foam I recommend you cut a piece and apply it to the area and apply the Johnson bandage and put pressure along the cut so that it can stop. If it does not stop after 15 to 30 minutes I would like you to return to the emergency department. Otherwise please follow-up with your computing tutor at your scheduled appointment [facility] [address], [address] [place] [address] [phone] The patient is informed of any results of their evaluation and diagnostic workup and all questions are answered. They are given discharge instructions and return precautions. The patient is stable for discharge. The patient states they understand and agree with the plan and that they will return if their symptoms get worse or if they have any new concerns. The following information is given to patients seen in the emergency department who are being discharged to home. This information is to outline your options for follow-up care. We provide all patients seen in our emergency department with a follow-up referral. The need for follow-up, as well as the timing and circumstances, are variable depending upon the specifics of your emergency department visit. If you don't have a primary care physician on staff, we will provide you with a referral. We always advise you to contact your personal physician following an emergency department visit to inform them of the circumstance of the visit and for follow-up with them and/or the need for any referrals to a consulting specialist. The emergency department will also refer you to a specialist when appropriate. This referral assures that you have the opportunity for follow-up care with a specialist. All of these measure are taken in an effort to provide you with optimal care, which includes your follow-up. Under all circumstances we always encourage you to contact your private physician who remains a resource for coordinating your care. When calling for follow-up care, please make the office aware that this follow-up is from your recent emergency room visit. If for any reason you are refused follow-up, please contact the [facility] Emergency Department at and asked to speak to the emergency department charge nurse. Sepsis Event Note (ED) - Evaluation Sepsis Screening Result: No Definite Risk
[2021-03-27] MEDS ORDERED: Lidocaine 1% with EPINEPHrine 1:100,000 20 ML MDV ONE (02:57)
[2021-03-27] MEDS ORDERED: Lidocaine 1% with EPINEPHrine 1:100,000 20 ML MDV INJECT ONE (02:59)
[2021-03-27 04:10] VITALS: BP 132/62; PULSE 97
== END 2021-03-27 04:10 | disposition home or self-care (01) ==
LOC: MW.ED 01:48
DX: L76.22 Postprocedural hemorrhage of skin and subcutaneous tissue following other procedure (principal); I48.91 Unspecified atrial fibrillation; I10 Essential (primary) hypertension; E78.00 Pure hypercholesterolemia, unspecified; E11.9 Type 2 diabetes mellitus without complications; Z88.6 Allergy status to analgesic agent; Z88.5 Allergy status to narcotic agent; Z91.048 Other nonmedicinal substance allergy status; Z79.01 Long term (current) use of anticoagulants; Z79.84 Long term (current) use of oral hypoglycemic drugs; Z79.899 Other long term (current) drug therapy
CPT/HCPCS: 99283

== ENCOUNTER 2021-05-22 18:13 | Emergency (ER) | payer MEDICARE, BC ==
[2021-05-22 19:12] LABS: BLOOD UREA NITROGEN,BUN 14 mg/dL (7.0-18.0); CARBON DIOXIDE,CO2 25.1 mmol/L (21.0-32.0); CHLORIDE,CL 100 mmol/L (98-107); GLUCOSE RANDOM 124 mg/dL (74-106); POTASSIUM,K 4.1 mmol/L (3.5-5.1); SODIUM,NA 134 mmol/L (136-145)
[2021-05-22 20:10] LABS: CORONAVIRUS COVID-19 NAA NEGATIVE (NEGATIVE); INFLUENZA A NAA NEGATIVE (NEGATIVE); INFLUENZA B NAA NEGATIVE (NEGATIVE)
[2021-05-22] MEDS ORDERED: Nitrofurantoin Monohydrate/Macrocrystalline 100 MG Cap PO ONE (20:32)
[2021-05-22 22:00] VITALS: BP 139/98; PULSE 86
== END 2021-05-22 21:15 | disposition home or self-care (01) ==
LOC: MW.ED 18:13
DX: R42 Dizziness and giddiness (principal); N39.0 Urinary tract infection, site not specified; I10 Essential (primary) hypertension; I48.91 Unspecified atrial fibrillation; E11.40 Type 2 diabetes mellitus with diabetic neuropathy, unspecified; Z88.6 Allergy status to analgesic agent; Z20.822 Contact with and (suspected) exposure to COVID-19; Z79.899 Other long term (current) drug therapy; Z91.09 Other allergy status, other than to drugs and biological substances
CPT/HCPCS: 0240U; 36415; 71045; 80053; 81001; 84484; 85025; 87086; 93005; 99284

== ENCOUNTER 2021-07-06 01:09 | Emergency (ER) | payer MEDICARE, BC ==
[2021-07-06] MEDS ORDERED: Metoprolol Tartrate 50 MG Tab PO ONE (01:27)
[2021-07-06] MEDS ORDERED: Lidocaine 1% with EPINEPHrine 1:100,000 10 ML MDV INJECT ONE (01:27)
[2021-07-06 02:14] VITALS: BP 128/67; PULSE 102
== END 2021-07-06 02:15 | disposition home or self-care (01) ==
LOC: MW.ED 01:09
DX: R04.0 Epistaxis (principal); I48.91 Unspecified atrial fibrillation; E78.00 Pure hypercholesterolemia, unspecified; I10 Essential (primary) hypertension; E11.40 Type 2 diabetes mellitus with diabetic neuropathy, unspecified; Z90.710 Acquired absence of both cervix and uterus; Z88.6 Allergy status to analgesic agent; Z88.5 Allergy status to narcotic agent; Z91.048 Other nonmedicinal substance allergy status; Z79.84 Long term (current) use of oral hypoglycemic drugs
CPT/HCPCS: 30903; 99283; A9270; 99282

== ENCOUNTER 2021-07-07 23:24 | Emergency (ER) | payer MEDICARE, BC ==
[2021-07-07 23:36] VITALS: BP 156/84; PULSE 101
== END 2021-07-08 00:39 | disposition home or self-care (01) ==
LOC: MW.ED 23:24
DX: R04.0 Epistaxis (principal); I48.91 Unspecified atrial fibrillation; E78.00 Pure hypercholesterolemia, unspecified; I10 Essential (primary) hypertension; E11.40 Type 2 diabetes mellitus with diabetic neuropathy, unspecified; Z88.5 Allergy status to narcotic agent; Z91.048 Other nonmedicinal substance allergy status; Z88.8 Allergy status to other drugs, medicaments and biological substances; Z79.899 Other long term (current) drug therapy; Z79.84 Long term (current) use of oral hypoglycemic drugs; Z79.01 Long term (current) use of anticoagulants
CPT/HCPCS: 99283

== ENCOUNTER 2021-09-03 21:46 | Emergency (ER) | payer MEDICARE, BC ==
[2021-09-03] MEDS ORDERED: Oxymetazoline 0.05% Nasal Spray 30 ML Bottle NAS ONE (23:00)
[2021-09-03] MEDS ORDERED: Lidocaine 1% with EPINEPHrine 1:100,000 10 ML MDV INJECT ONE (23:08)
[2021-09-04] MEDS ORDERED: Amoxicillin/Clavulanate K 875-125 MG Tab PO STA (00:23)
[2021-09-04 00:45] VITALS: BP 125/79; PULSE 100
== END 2021-09-04 00:43 | disposition home or self-care (01) ==
LOC: MW.ED 21:46
DX: R04.0 Epistaxis (principal); I48.91 Unspecified atrial fibrillation; E78.00 Pure hypercholesterolemia, unspecified; I10 Essential (primary) hypertension; E11.9 Type 2 diabetes mellitus without complications; Z79.01 Long term (current) use of anticoagulants; Z88.5 Allergy status to narcotic agent; Z91.048 Other nonmedicinal substance allergy status; Z88.8 Allergy status to other drugs, medicaments and biological substances; Z79.899 Other long term (current) drug therapy; Z79.84 Long term (current) use of oral hypoglycemic drugs
CPT/HCPCS: 30903; 99283; A9270

== ENCOUNTER 2021-09-06 08:02 | Emergency (ER) | payer MEDICARE, BC ==
[2021-09-06 09:18] VITALS: BP 120/76; PULSE 77
== END 2021-09-06 09:10 | disposition home or self-care (01) ==
LOC: MW.ED 08:02
DX: R04.0 Epistaxis (principal); E11.9 Type 2 diabetes mellitus without complications; I10 Essential (primary) hypertension; I48.91 Unspecified atrial fibrillation; E78.00 Pure hypercholesterolemia, unspecified; Z79.899 Other long term (current) drug therapy; Z79.01 Long term (current) use of anticoagulants; Z79.84 Long term (current) use of oral hypoglycemic drugs; Z88.6 Allergy status to analgesic agent; Z88.8 Allergy status to other drugs, medicaments and biological substances; Z91.048 Other nonmedicinal substance allergy status
CPT/HCPCS: 99282

== ENCOUNTER 2021-10-18 18:14 | Emergency (ER) | payer MEDICARE, BC ==
[2021-10-18] MEDS ORDERED: Sodium Chloride 0.9% 2.5 ML Syringe FLUSH PRN (20:14)
[2021-10-18] MEDS ORDERED: Sodium Chloride 0.9% 10 ML Syringe FLUSH PRN (20:14)
[2021-10-18 21:14] LABS: CARBON DIOXIDE,CO2 26.1 mmol/L (21.0-32.0)
[2021-10-18] MEDS ORDERED: Ciprofloxacin 250 MG Tab PO STA (22:04)
[2021-10-18 22:13] VITALS: BP 132/85; PULSE 78
== END 2021-10-18 22:13 | disposition home or self-care (01) ==
LOC: MW.ED 18:14
DX: N30.00 Acute cystitis without hematuria (principal); E87.1 Hypo-osmolality and hyponatremia; I10 Essential (primary) hypertension; E11.9 Type 2 diabetes mellitus without complications; Z88.5 Allergy status to narcotic agent; Z91.048 Other nonmedicinal substance allergy status; Z79.899 Other long term (current) drug therapy; Z90.710 Acquired absence of both cervix and uterus; Z20.822 Contact with and (suspected) exposure to COVID-19
CPT/HCPCS: 36415; 80053; 81001; 83690; 85025; 87086; 87088; 87186; 99284; A9270; J3490; U0002; 99283

== ENCOUNTER 2022-05-03 07:15 | Emergency (ER) | payer MEDICARE, BC ==
[2022-05-03] MEDS ORDERED: Sodium Chloride 0.9% 10 ML Syringe FLUSH PRN (08:17)
[2022-05-03] MEDS ORDERED: Sodium Chloride 0.9% 2.5 ML Syringe FLUSH PRN (08:17)
[2022-05-03 09:04] LABS: CARBON DIOXIDE,CO2 28.5 mmol/L (21.0-32.0)
[2022-05-03] MEDS ORDERED: Iopamidol 755 MG/ML 500 ML Multipack Bottle IVPUSH ONE (09:43)
[2022-05-03 11:16] VITALS: BP 123/80; PULSE 88
== END 2022-05-03 11:17 | disposition home or self-care (01) ==
LOC: MW.ED 07:15
DX: N30.00 Acute cystitis without hematuria (principal); K59.00 Constipation, unspecified; E11.40 Type 2 diabetes mellitus with diabetic neuropathy, unspecified; I48.91 Unspecified atrial fibrillation; I10 Essential (primary) hypertension; Z88.5 Allergy status to narcotic agent; Z91.048 Other nonmedicinal substance allergy status; Z79.899 Other long term (current) drug therapy; Z79.01 Long term (current) use of anticoagulants; Z79.84 Long term (current) use of oral hypoglycemic drugs
CPT/HCPCS: 36415; 71045; 74177; 80053; 81001; 83605; 83690; 84484; 85025; 85610; 93005; 99284; J3490; Q9967

== ENCOUNTER 2022-06-08 08:11 | Inpatient (IN) | payer MEDICARE, BC ==
[2022-06-08] MEDS ORDERED: Acetaminophen 500 MG Tab PO ONE (08:14)
[2022-06-08] MEDS ORDERED: Ibuprofen 400 MG Tab PO ONE (08:14)
[2022-06-08 11:00] LABS: CARBON DIOXIDE,CO2 27.9 mmol/L (21.0-32.0); POTASSIUM,K 4.1 mmol/L (3.5-5.1)
[2022-06-08] MEDS ORDERED: Polyethylene Glycol 3350 Powder 17 GM Packet PO PRN (15:14)
[2022-06-08] MEDS: Gabapentin 300 MG Cap PO SCH ×2 (15:39→21:08)
[2022-06-08] MEDS ORDERED: Carboxymethylcellulose Sodium 0.5% Ophth Soln 0.4 ML UD Box of 30 EYEBOTH PRN (15:42)
[2022-06-08] MEDS: Losartan 50 MG Tab PO SCH (17:31)
[2022-06-08] MEDS: Docusate Sodium 100 MG Cap PO SCH (17:32)
[2022-06-08] MEDS: Rivaroxaban 15 MG Tab PO SCH (17:32)
[2022-06-08] MEDS: COPPER PO SCH (17:33)
[2022-06-08] MEDS: ZINC PO SCH (17:33)
[2022-06-08] MEDS: ASCORBIC ACID PO SCH (17:33)
[2022-06-08] MEDS: VITAMIN A PO SCH (17:33)
[2022-06-08] MEDS: VITAMIN E PO SCH (17:33)
[2022-06-08] MEDS ORDERED: traZODone 50 MG Tab PO SCH (21:00)
[2022-06-08] MEDS: atorvaSTATin 20 MG Tab PO SCH (21:07)
[2022-06-08] MEDS: Cyanocobalamin (Vitamin B12) 500 MCG Tab PO SCH (21:09)
[2022-06-08] MEDS: Carboxymethylcellulose Sodium 0.5% Ophth Soln 0.4 ML UD Box of 30 EYEBOTH SCH (22:05)
[2022-06-09] MEDS: Acetaminophen 325 MG Tab PO PRN ×2 (05:04→20:41)
[2022-06-09 06:44] LABS: CARBON DIOXIDE,CO2 28.6 mmol/L (21.0-32.0)
[2022-06-09] MEDS: Gabapentin 300 MG Cap PO SCH ×3 (07:11→20:39)
[2022-06-09] MEDS ORDERED: DILTIAZEM HCL 300 MG PO SCH (09:00)
[2022-06-09] MEDS: metFORMIN 500 MG Tab.ER PO SCH (09:12)
[2022-06-09] MEDS: Docusate Sodium 100 MG Cap PO SCH ×2 (09:13→18:17)
[2022-06-09] MEDS: Furosemide 20 MG Tab PO SCH (09:13)
[2022-06-09] MEDS: Cyanocobalamin (Vitamin B12) 500 MCG Tab PO SCH ×2 (09:13→20:40)
[2022-06-09] MEDS: Diltiazem 120 MG Cap.CD PO SCH (09:14)
[2022-06-09] MEDS: Diltiazem 180 MG Cap.CD PO SCH (09:14)
[2022-06-09] MEDS: Fish Oil/Omega-3 Fatty Acids 1 Gm Cap PO SCH (13:56)
[2022-06-09] MEDS: COPPER PO SCH (14:05)
[2022-06-09] MEDS: ASCORBIC ACID PO SCH (14:05)
[2022-06-09] MEDS: VITAMIN A PO SCH (14:05)
[2022-06-09] MEDS: VITAMIN E PO SCH (14:05)
[2022-06-09] MEDS: ZINC PO SCH (14:05)
[2022-06-09] MEDS: Losartan 50 MG Tab PO SCH (18:17)
[2022-06-09] MEDS: PRESERVISION AREDS2 PO SCH (18:17)
[2022-06-09] MEDS: Rivaroxaban 15 MG Tab PO SCH (18:17)
[2022-06-09] MEDS: atorvaSTATin 20 MG Tab PO SCH (20:39)
[2022-06-09] MEDS: traZODone 50 MG Tab PO SCH (20:40)
[2022-06-09] MEDS: Carboxymethylcellulose Sodium 0.5% Ophth Soln 0.4 ML UD Box of 30 EYEBOTH SCH (20:42)
[2022-06-10] MEDS: Gabapentin 300 MG Cap PO SCH ×3 (06:20→19:59)
[2022-06-10] MEDS: metFORMIN 500 MG Tab.ER PO SCH (08:55)
[2022-06-10] MEDS: Cyanocobalamin (Vitamin B12) 500 MCG Tab PO SCH ×2 (08:56→19:59)
[2022-06-10] MEDS: Diltiazem 120 MG Cap.CD PO SCH (08:56)
[2022-06-10] MEDS: Furosemide 20 MG Tab PO SCH (08:56)
[2022-06-10] MEDS: Diltiazem 180 MG Cap.CD PO SCH (08:56)
[2022-06-10] MEDS: Dicyclomine 10 MG Cap PO PRN ×3 (08:58→21:56)
[2022-06-10] MEDS: PRESERVISION AREDS2 PO SCH ×2 (08:59→17:44)
[2022-06-10] MEDS: Docusate Sodium 100 MG Cap PO SCH ×2 (09:00→17:41)
[2022-06-10] MEDS: Polyethylene Glycol 3350 Powder 17 GM Packet PO SCH (10:00)
[2022-06-10] MEDS: Fish Oil/Omega-3 Fatty Acids 1 Gm Cap PO SCH (14:06)
[2022-06-10] MEDS: Rivaroxaban 15 MG Tab PO SCH (17:41)
[2022-06-10] MEDS: Losartan 50 MG Tab PO SCH (17:42)
[2022-06-10] MEDS: atorvaSTATin 20 MG Tab PO SCH (19:59)
[2022-06-10] MEDS: Carboxymethylcellulose Sodium 0.5% Ophth Soln 0.4 ML UD Box of 30 EYEBOTH SCH (20:00)
[2022-06-10] MEDS: traZODone 50 MG Tab PO SCH (21:55)
[2022-06-11] MEDS: Gabapentin 300 MG Cap PO SCH ×3 (06:11→20:33)
[2022-06-11 06:36] LABS: CARBON DIOXIDE,CO2 26.8 mmol/L (21.0-32.0); POTASSIUM,K 3.8 mmol/L (3.5-5.1)
[2022-06-11] MEDS: metFORMIN 500 MG Tab.ER PO SCH (07:43)
[2022-06-11] MEDS: Docusate Sodium 100 MG Cap PO SCH ×2 (07:43→17:31)
[2022-06-11] MEDS: Dicyclomine 10 MG Cap PO PRN ×2 (07:43→16:39)
[2022-06-11] MEDS: Diltiazem 120 MG Cap.CD PO SCH (08:20)
[2022-06-11] MEDS: Cyanocobalamin (Vitamin B12) 500 MCG Tab PO SCH ×2 (08:21→20:33)
[2022-06-11] MEDS: Diltiazem 180 MG Cap.CD PO SCH (08:22)
[2022-06-11] MEDS: Polyethylene Glycol 3350 Powder 17 GM Packet PO SCH (08:23)
[2022-06-11] MEDS: Furosemide 20 MG Tab PO SCH (08:23)
[2022-06-11] MEDS: PRESERVISION AREDS2 PO SCH ×2 (09:19→19:03)
[2022-06-11] MEDS: Acetaminophen 325 MG Tab PO PRN ×2 (09:53→15:58)
[2022-06-11] MEDS ORDERED: Potassium Chloride 20 MEQ Tab.ER PO ONE (10:14)
[2022-06-11] MEDS ORDERED: Ondansetron 4 MG/2 ML SDV IVPUSH PRN (13:04)
[2022-06-11] MEDS: Ondansetron 4 MG Tab.DIS PO PRN (13:36)
[2022-06-11] MEDS: Fish Oil/Omega-3 Fatty Acids 1 Gm Cap PO SCH (13:36)
[2022-06-11] MEDS ORDERED: Magnesium Sulfate/Water 4 GM in Premix Bag 1 BAG IV ONE (13:51)
[2022-06-11] MEDS: Losartan 50 MG Tab PO SCH (17:22)
[2022-06-11] MEDS: Rivaroxaban 15 MG Tab PO SCH (17:31)
[2022-06-11] MEDS: Carboxymethylcellulose Sodium 0.5% Ophth Soln 0.4 ML UD Box of 30 EYEBOTH SCH (20:33)
[2022-06-11] MEDS: atorvaSTATin 20 MG Tab PO SCH (20:33)
[2022-06-11] MEDS: Sodium Chloride 0.65% Nasal Spray 45 ML Bottle NASBOTH PRN (20:35)
[2022-06-11] MEDS: traZODone 50 MG Tab PO SCH (21:32)
[2022-06-12] MEDS: Gabapentin 300 MG Cap PO SCH ×3 (05:56→20:13)
[2022-06-12] MEDS: Docusate Sodium 100 MG Cap PO SCH ×2 (08:10→17:05)
[2022-06-12] MEDS: PRESERVISION AREDS2 PO SCH ×2 (08:11→17:05)
[2022-06-12] MEDS: metFORMIN 500 MG Tab.ER PO SCH (08:12)
[2022-06-12] MEDS: Diltiazem 180 MG Cap.CD PO SCH (08:13)
[2022-06-12] MEDS: Diltiazem 120 MG Cap.CD PO SCH (08:14)
[2022-06-12] MEDS: Furosemide 20 MG Tab PO SCH (08:15)
[2022-06-12] MEDS: Acetaminophen 325 MG Tab PO PRN (08:16)
[2022-06-12] MEDS: Cyanocobalamin (Vitamin B12) 500 MCG Tab PO SCH ×2 (08:16→20:13)
[2022-06-12] MEDS: Polyethylene Glycol 3350 Powder 17 GM Packet PO SCH (08:16)
[2022-06-12 08:47] LABS: CARBON DIOXIDE,CO2 25.7 mmol/L (21.0-32.0); POTASSIUM,K 4.7 mmol/L (3.5-5.1)
[2022-06-12] MEDS: Fish Oil/Omega-3 Fatty Acids 1 Gm Cap PO SCH (14:07)
[2022-06-12] MEDS: Rivaroxaban 15 MG Tab PO SCH (17:05)
[2022-06-12] MEDS: Dicyclomine 10 MG Cap PO PRN (18:08)
[2022-06-12] MEDS: Ondansetron 4 MG Tab.DIS PO PRN (20:12)
[2022-06-12] MEDS: atorvaSTATin 20 MG Tab PO SCH (20:13)
[2022-06-12] MEDS: Carboxymethylcellulose Sodium 0.5% Ophth Soln 0.4 ML UD Box of 30 EYEBOTH SCH (20:35)
[2022-06-12] MEDS: traZODone 50 MG Tab PO SCH (21:46)
[2022-06-13] MEDS: Acetaminophen 325 MG Tab PO PRN ×2 (04:18→16:46)
[2022-06-13] MEDS: Dicyclomine 10 MG Cap PO PRN ×2 (04:25→12:30)
[2022-06-13] MEDS: Ondansetron 4 MG Tab.DIS PO PRN ×3 (04:25→21:34)
[2022-06-13] MEDS: Gabapentin 300 MG Cap PO SCH ×3 (05:29→21:37)
[2022-06-13 06:41] LABS: CARBON DIOXIDE,CO2 27.8 mmol/L (21.0-32.0); POTASSIUM,K 4.5 mmol/L (3.5-5.1)
[2022-06-13] MEDS: Diltiazem 120 MG Cap.CD PO SCH (08:32)
[2022-06-13] MEDS: Diltiazem 180 MG Cap.CD PO SCH (08:32)
[2022-06-13] MEDS: metFORMIN 500 MG Tab.ER PO SCH (08:32)
[2022-06-13] MEDS: Cyanocobalamin (Vitamin B12) 500 MCG Tab PO SCH ×2 (08:32→21:35)
[2022-06-13] MEDS: Docusate Sodium 100 MG Cap PO SCH ×2 (08:33→16:45)
[2022-06-13] MEDS: Polyethylene Glycol 3350 Powder 17 GM Packet PO SCH (08:33)
[2022-06-13] MEDS: PRESERVISION AREDS2 PO SCH ×2 (08:33→16:46)
[2022-06-13] MEDS: Furosemide 20 MG Tab PO SCH (08:33)
[2022-06-13] MEDS: Fish Oil/Omega-3 Fatty Acids 1 Gm Cap PO SCH (13:54)
[2022-06-13] MEDS ORDERED: Sodium Chloride 0.9% 500 ML IV SCH (14:00)
[2022-06-13] MEDS: Rivaroxaban 15 MG Tab PO SCH (16:45)
[2022-06-13] MEDS: Carboxymethylcellulose Sodium 0.5% Ophth Soln 0.4 ML UD Box of 30 EYEBOTH SCH (21:25)
[2022-06-13] MEDS: traZODone 50 MG Tab PO SCH (21:35)
[2022-06-13] MEDS: atorvaSTATin 20 MG Tab PO SCH (21:35)
[2022-06-13] MEDS: Sodium Chloride 0.65% Nasal Spray 45 ML Bottle NASBOTH PRN (21:51)
[2022-06-14] MEDS: Acetaminophen 325 MG Tab PO PRN ×2 (02:03→17:02)
[2022-06-14] MEDS: Gabapentin 300 MG Cap PO SCH ×3 (06:13→20:20)
[2022-06-14 06:59] LABS: POTASSIUM,K 4.8 mmol/L (3.5-5.1)
[2022-06-14] MEDS: Cyanocobalamin (Vitamin B12) 500 MCG Tab PO SCH ×2 (09:14→20:20)
[2022-06-14] MEDS: metFORMIN 500 MG Tab.ER PO SCH (09:14)
[2022-06-14] MEDS: Dicyclomine 10 MG Cap PO PRN ×3 (09:14→21:05)
[2022-06-14] MEDS: Ondansetron 4 MG Tab.DIS PO PRN (09:14)
[2022-06-14] MEDS: Diltiazem 120 MG Cap.CD PO SCH (09:15)
[2022-06-14] MEDS: Diltiazem 180 MG Cap.CD PO SCH (09:15)
[2022-06-14] MEDS: Docusate Sodium 100 MG Cap PO SCH ×2 (09:15→17:02)
[2022-06-14] MEDS: Furosemide 20 MG Tab PO SCH (09:15)
[2022-06-14] MEDS: PRESERVISION AREDS2 PO SCH ×2 (09:16→17:01)
[2022-06-14] MEDS: Polyethylene Glycol 3350 Powder 17 GM Packet PO SCH (09:16)
[2022-06-14] MEDS: Fish Oil/Omega-3 Fatty Acids 1 Gm Cap PO SCH (13:14)
[2022-06-14] MEDS: Rivaroxaban 15 MG Tab PO SCH (17:02)
[2022-06-14] MEDS: atorvaSTATin 20 MG Tab PO SCH (20:20)
[2022-06-14] MEDS: Carboxymethylcellulose Sodium 0.5% Ophth Soln 0.4 ML UD Box of 30 EYEBOTH SCH (20:20)
[2022-06-14] MEDS: traZODone 50 MG Tab PO SCH (22:05)
[2022-06-15] MEDS: Gabapentin 300 MG Cap PO SCH ×2 (05:49→13:27)
[2022-06-15 07:52] VITALS: BP 139/78; PULSE 127
[2022-06-15] MEDS: Cyanocobalamin (Vitamin B12) 500 MCG Tab PO SCH (08:02)
[2022-06-15] MEDS: Diltiazem 120 MG Cap.CD PO SCH (08:02)
[2022-06-15] MEDS: metFORMIN 500 MG Tab.ER PO SCH (08:03)
[2022-06-15] MEDS: Diltiazem 180 MG Cap.CD PO SCH (08:03)
[2022-06-15] MEDS: Docusate Sodium 100 MG Cap PO SCH (08:03)
[2022-06-15] MEDS: Furosemide 20 MG Tab PO SCH (08:03)
[2022-06-15] MEDS: Polyethylene Glycol 3350 Powder 17 GM Packet PO SCH (08:04)
[2022-06-15] MEDS: PRESERVISION AREDS2 PO SCH (08:04)
[2022-06-15] MEDS: Dicyclomine 10 MG Cap PO PRN ×2 (09:02→13:23)
[2022-06-15] MEDS: Fish Oil/Omega-3 Fatty Acids 1 Gm Cap PO SCH (13:27)
== END 2022-06-15 13:30 | DRG 605 ==
LOC: MW.ED 08:11 → INTOOBSV 11:31 → MW.MS 11:31 → OBSVTOIN 11:31 → MW.MS 18:44 → OBSVTOIN 06-09 13:02 → MW.MS 06-09 13:26
PROVIDERS: ADMIT Internal Medicine; ATTEND Internal Medicine
DX: S80.02XA Contusion of left knee, initial encounter (principal); E87.1 Hypo-osmolality and hyponatremia; M25.062 Hemarthrosis, left knee; M25.462 Effusion, left knee; I48.91 Unspecified atrial fibrillation; H35.30 Unspecified macular degeneration; E78.00 Pure hypercholesterolemia, unspecified; I10 Essential (primary) hypertension; M19.90 Unspecified osteoarthritis, unspecified site; G89.29 Other chronic pain; M54.9 Dorsalgia, unspecified; E11.40 Type 2 diabetes mellitus with diabetic neuropathy, unspecified; Z20.822 Contact with and (suspected) exposure to COVID-19; F41.9 Anxiety disorder, unspecified; W00.0XXA Fall on same level due to ice and snow, initial encounter; Z96.653 Presence of artificial knee joint, bilateral; Z88.5 Allergy status to narcotic agent; Z88.8 Allergy status to other drugs, medicaments and biological substances; Z79.01 Long term (current) use of anticoagulants; Z90.710 Acquired absence of both cervix and uterus; Z98.890 Other specified postprocedural states; Z90.89 Acquired absence of other organs; Z90.49 Acquired absence of other specified parts of digestive tract; Z98.41 Cataract extraction status, right eye; Z98.42 Cataract extraction status, left eye; Z90.721 Acquired absence of ovaries, unilateral; Z98.51 Tubal ligation status; Z79.899 Other long term (current) drug therapy; Y92.89 Other specified places as the place of occurrence of the external cause; Z79.84 Long term (current) use of oral hypoglycemic drugs
CPT/HCPCS: 36415; 70450; 70450-26; 72125; 72125-26; 73562-26-LT; 73562-LT; 80048; 80053; 82947; 83735; 85025; 97110-GP; 97161-GP; 97530-GP; 99284; 99285; A9270-GY; G0378; J2405; J3475; J3490; J7040; U0002

== ENCOUNTER 2023-04-20 11:27 | Emergency (ER) | payer MEDICARE, BC ==
[2023-04-20 12:04] VITALS: PULSE 86
[2023-04-20 12:52] LABS: BASOPHILS ABSOLUTE AUTO 0.03 K/uL (0.00-0.20); BASOPHILS PERCENT AUTO 0.6 % (0.0-1.0); EOSINOPHILS ABSOLUTE AUTO 0.01 K/uL (0.00-0.45); EOSINOPHILS PERCENT AUTO 0.2 % (0.0-6.0); HEMATOCRIT 32.5 % (37.0-47.0); HEMOGLOBIN 11.4 g/dL (12.0-16.0); IMMATURE GRAN ABSOLUTE AUTO 0.01 K/uL (0.00-0.05); IMMATURE GRAN PERCENT AUTO 0.2 % (0.0-0.4); LYMPHOCYTES ABSOLUTE AUTO 0.48 K/uL (1.00-4.80); LYMPHOCYTES PERCENT AUTO 8.9 % (24.0-44.0); MEAN CORPUSCULAR HEMOGLOBIN 30.3 pg (28.0-32.0); MEAN CORPUSCULAR HGB CONC 35.1 g/dL (32.0-36.0); MEAN CORPUSCULAR VOLUME 86.4 fL (83.0-99.0); MEAN PLATELET VOLUME 10.1 fL (9.4-12.3); MONOCYTES ABSOLUTE AUTO 0.45 K/uL (0.00-0.80); MONOCYTES PERCENT AUTO 8.3 % (0.0-8.0); NEUTROPHILS ABSOLUTE AUTO 4.43 K/uL (1.80-7.70); NEUTROPHILS PERCENT AUTO 81.8 % (41.0-71.0); PLATELET COUNT,PLT 180 K/uL (150-400); RED BLOOD CELL COUNT 3.76 M/uL (4.10-5.30); WHITE BLOOD CELL COUNT,WBC 5.41 K/uL (3.9-11.3)
[2023-04-20] MEDS ORDERED: Doxycycline 100 MG Cap PO ONE (13:05)
[2023-04-20 13:27] VITALS: BP 122/64
== END 2023-04-20 13:26 | disposition home or self-care (01) ==
LOC: MW.ED 11:27
DX: L03.116 Cellulitis of left lower limb (principal); I10 Essential (primary) hypertension; E11.9 Type 2 diabetes mellitus without complications; E78.00 Pure hypercholesterolemia, unspecified; Z79.84 Long term (current) use of oral hypoglycemic drugs; Z79.899 Other long term (current) drug therapy; Z88.5 Allergy status to narcotic agent; Z91.048 Other nonmedicinal substance allergy status; Z90.49 Acquired absence of other specified parts of digestive tract; Z90.710 Acquired absence of both cervix and uterus
CPT/HCPCS: 36415; 85025; 99283; A9270

== ENCOUNTER 2023-10-31 06:43 | Inpatient (IN) | payer MEDICARE, BC ==
[2023-10-31] MEDS: Sodium Chloride 0.9% 10 ML Syringe FLUSH PRN (07:26)
[2023-10-31] MEDS: Sodium Chloride 0.9% 2.5 ML Syringe FLUSH PRN (07:26)
[2023-10-31] MEDS: Sodium Chloride 0.9% 500 ML IV SCH ×2 (07:26→09:26)
[2023-10-31] MEDS: Diltiazem 25 MG/5 ML SDV IVPUSH ONE (07:26)
[2023-10-31] MEDS: cefTRIAXone 1 GM in Sodium Chloride 0.9% 50 ML IV ONE (07:43)
[2023-10-31 07:47] LABS: HEMATOCRIT 28.9 % (37.0-47.0); HEMOGLOBIN 10.4 g/dL (12.0-16.0); MEAN CORPUSCULAR HEMOGLOBIN 30.9 pg (28.0-32.0); MEAN CORPUSCULAR VOLUME 85.8 fL (83.0-99.0); MEAN PLATELET VOLUME 10.1 fL (9.4-12.3); PLATELET COUNT,PLT 158 K/uL (150-400); RED BLOOD CELL COUNT 3.37 M/uL (4.10-5.30); WHITE BLOOD CELL COUNT,WBC 19.71 K/uL (3.9-11.3)
[2023-10-31 08:10] LABS: BAND ABSOLUTE MAN 0.39; BAND PERCENT MAN 2 %; LYMPHOCYTES ABSOLUTE MAN 0.79 K/uL (1.00-4.80); LYMPHOCYTES PERCENT MAN 4 % (24-44); MONOCYTES ABSOLUTE MAN 0.79 K/uL (0.00-0.80); MONOCYTES PERCENT MAN 4 % (0-8); SEG NEUTROPHILS ABSOLUTE MAN 17.74 K/uL (1.80-7.70); SEG NEUTROPHILS PERCENT MAN 90 % (41-71)
[2023-10-31 08:17] LABS: ALBUMIN 2.6 g/dL (3.4-5.0); BILIRUBIN TOTAL 0.8 mg/dL (0.2-1.0); CALCIUM 8.4 mg/dL (8.5-10.1); CARBON DIOXIDE,CO2 24.1 mmol/L (21.0-32.0); CREATININE 1.3 mg/dL (0.6-1.0); EST CRCL DRUG DOSING (CG) 31.86 mL/min; MAGNESIUM 1.6 mg/dL (1.8-2.4); PROTEIN TOTAL,TP 5.1 g/dL (6.4-8.2); TSH ULTRASENSITIVE 1.53 uIU/mL (0.36-3.74)
[2023-10-31 08:17] LABS: CORONAVIRUS COVID-19 NAA NEGATIVE (NEGATIVE); INFLUENZA A NAA NEGATIVE (NEGATIVE); INFLUENZA B NAA NEGATIVE (NEGATIVE); RESPIRATORY SYNCYTIAL VIR NAA NEGATIVE (NEGATIVE)
[2023-10-31] MEDS: Sodium Chloride 0.9% 1,000 ML IV SCH ×2 (09:06→21:45)
[2023-10-31] MEDS: Magnesium Sulfate (4.06 MEQ/ML) 5 GM/10 ML SDV IV ONE (09:20)
[2023-10-31] MEDS: Magnesium Sulfate/Water 2 GM in Premix Bag 1 BAG IV ONE (09:26)
[2023-10-31] MEDS ORDERED: Magnesium Sulfate/Water 2 GM in Premix Bag 1 BAG IV ONE (09:30)
[2023-10-31 10:33] LABS: APPEARANCE,URINE CLOUDY; BILIRUBIN,URINE NEGATIVE (NEGATIVE); COLOR,URINE YELLOW; GLUCOSE,URINE NEGATIVE (NEGATIVE); KETONES,URINE NEGATIVE (NEGATIVE); LEUKOCYTE ESTERASE,URINE MODERATE (NEGATIVE); NITRITE,URINE NEGATIVE (NEGATIVE); OCCULT BLOOD,URINE SMALL (NEGATIVE); PROTEIN,URINE 30 mg/dL (NEGATIVE); UROBILINOGEN,URINE 0.2 EU/dL (<2.0)
[2023-10-31 10:40] LABS: BACTERIA,URINE 3+ (NEGATIVE); EPITHELIAL CELLS,URINE FEW (NONE-FEW); MUCUS,URINE LIGHT (NONE-MOD); RBC,URINE 0-3 (0-2/HPF); WBC,URINE 15-18 (0-5/HPF)
[2023-10-31] MEDS ORDERED: 50% Dextrose in Water 50 ML Syringe IVPUSH PRN (13:06)
[2023-10-31] MEDS ORDERED: Glucagon,Human Recombinant 1 MG Vial IM PRN (13:06)
[2023-10-31] MEDS ORDERED: Sodium Chloride 0.9% 500 ML IV SCH (13:15)
[2023-10-31] MEDS: Polyethylene Glycol 3350 Powder 17 GM Packet PO SCH (14:38)
[2023-10-31] MEDS: Diltiazem 25 MG/5 ML SDV IVPUSH PRN (15:49)
[2023-10-31] MEDS: Insulin Aspart 100 Units/ML 3 ML Pen SUBCUT SCH (16:47)
[2023-10-31] MEDS: Docusate Sodium 100 MG Cap PO SCH (16:49)
[2023-10-31] MEDS: Metoprolol Tartrate 5 MG/5 ML SDV IVPUSH ONE (17:23)
[2023-10-31] MEDS: Furosemide 20 MG/2 ML VIAL IVPUSH ONE (17:23)
[2023-10-31] MEDS: Rivaroxaban 15 MG Tab PO SCH (17:23)
[2023-10-31] MEDS: atorvaSTATin 20 MG Tab PO SCH (21:44)
[2023-11-01] MEDS: Acetaminophen 325 MG Tab PO PRN (06:28)
[2023-11-01 06:31] LABS: BASOPHILS ABSOLUTE AUTO 0.03 K/uL (0.00-0.20); BASOPHILS PERCENT AUTO 0.2 % (0.0-1.0); HEMATOCRIT 30.1 % (37.0-47.0); HEMOGLOBIN 10.5 g/dL (12.0-16.0); IMMATURE GRAN PERCENT AUTO 0.6 % (0.0-0.4); LYMPHOCYTES ABSOLUTE AUTO 0.67 K/uL (1.00-4.80); MEAN CORPUSCULAR HEMOGLOBIN 30.2 pg (28.0-32.0); MEAN CORPUSCULAR HGB CONC 34.9 g/dL (32.0-36.0); MEAN CORPUSCULAR VOLUME 86.5 fL (83.0-99.0); MEAN PLATELET VOLUME 10.4 fL (9.4-12.3); MONOCYTES ABSOLUTE AUTO 1.26 K/uL (0.00-0.80); MONOCYTES PERCENT AUTO 7.5 % (0.0-8.0); NEUTROPHILS ABSOLUTE AUTO 14.81 K/uL (1.80-7.70); NEUTROPHILS PERCENT AUTO 87.7 % (41.0-71.0); PLATELET COUNT,PLT 149 K/uL (150-400); RED BLOOD CELL COUNT 3.48 M/uL (4.10-5.30); WHITE BLOOD CELL COUNT,WBC 16.87 K/uL (3.9-11.3)
[2023-11-01 06:55] LABS: A/G RATIO 0.9 (0.9-1.6); ALBUMIN 2.3 g/dL (3.4-5.0); BILIRUBIN TOTAL 0.5 mg/dL (0.2-1.0); CALCIUM 8.6 mg/dL (8.5-10.1); CARBON DIOXIDE,CO2 23.9 mmol/L (21.0-32.0); CREATININE 0.9 mg/dL (0.6-1.0); EST CRCL DRUG DOSING (CG) 46.02 mL/min; MAGNESIUM 2.2 mg/dL (1.8-2.4); PHOSPHORUS 3.4 mg/dL (2.6-4.7); POTASSIUM,K 3.8 mmol/L (3.5-5.1); PROTEIN TOTAL,TP 4.8 g/dL (6.4-8.2)
[2023-11-01 07:14] LABS: CREATINE KINASE,CK 596 U/L (26-308); PRO B-TYPE NATRIUR PEPT,BNPPRO 7665 pg/mL (0-450)
[2023-11-01] MEDS ORDERED: Metoprolol Tartrate 5 MG/5 ML SDV IVPUSH PRN (08:03)
[2023-11-01] MEDS: Diltiazem 180 MG Cap.CD PO SCH (08:14)
[2023-11-01] MEDS: Diltiazem 120 MG Cap.CD PO SCH (08:18)
[2023-11-01] MEDS: cefTRIAXone 2 GM in Sodium Chloride 0.9% 50 ML IV SCH ×2 (08:32→10:01)
[2023-11-01] MEDS: Gabapentin 300 MG Cap PO SCH ×2 (12:13→20:15)
[2023-11-01] MEDS: Furosemide 20 MG Tab PO SCH (12:15)
[2023-11-01] MEDS ORDERED: Gabapentin 300 MG Cap PO SCH (14:00)
[2023-11-02 06:00] LABS: BASOPHILS ABSOLUTE AUTO 0.03 K/uL (0.00-0.20); BASOPHILS PERCENT AUTO 0.2 % (0.0-1.0); EOSINOPHILS ABSOLUTE AUTO 0.09 K/uL (0.00-0.45); EOSINOPHILS PERCENT AUTO 0.7 % (0.0-6.0); HEMATOCRIT 29.8 % (37.0-47.0); HEMOGLOBIN 10.5 g/dL (12.0-16.0); IMMATURE GRAN PERCENT AUTO 0.7 % (0.0-0.4); LYMPHOCYTES ABSOLUTE AUTO 0.66 K/uL (1.00-4.80); LYMPHOCYTES PERCENT AUTO 4.8 % (24.0-44.0); MEAN CORPUSCULAR HEMOGLOBIN 30.1 pg (28.0-32.0); MEAN CORPUSCULAR HGB CONC 35.2 g/dL (32.0-36.0); MEAN CORPUSCULAR VOLUME 85.4 fL (83.0-99.0); MEAN PLATELET VOLUME 10.1 fL (9.4-12.3); MONOCYTES ABSOLUTE AUTO 1.09 K/uL (0.00-0.80); NEUTROPHILS ABSOLUTE AUTO 11.66 K/uL (1.80-7.70); NEUTROPHILS PERCENT AUTO 85.6 % (41.0-71.0); PLATELET COUNT,PLT 176 K/uL (150-400); RED BLOOD CELL COUNT 3.49 M/uL (4.10-5.30); WHITE BLOOD CELL COUNT,WBC 13.63 K/uL (3.9-11.3)
[2023-11-02 06:23] LABS: ALBUMIN 2.2 g/dL (3.4-5.0); BILIRUBIN TOTAL 0.6 mg/dL (0.2-1.0); CALCIUM 8.6 mg/dL (8.5-10.1); CARBON DIOXIDE,CO2 27.8 mmol/L (21.0-32.0); CREATININE 0.8 mg/dL (0.6-1.0); EST CRCL DRUG DOSING (CG) 51.78 mL/min; POTASSIUM,K 3.6 mmol/L (3.5-5.1); PROTEIN TOTAL,TP 4.8 g/dL (6.4-8.2)
[2023-11-02 06:29] LABS: A/G RATIO 0.9 (0.9-1.6)
[2023-11-02] MEDS: Furosemide 40 MG/4 ML VIAL IVPUSH ONE (09:59)
[2023-11-02] MEDS: Dicyclomine 10 MG Cap PO ONE (12:44)
[2023-11-03] MEDS: Diltiazem 180 MG Cap.CD PO SCH (09:21)
[2023-11-03 14:20] VITALS: BP 110/70; PULSE 80
== END 2023-11-03 14:50 | DRG 690 ==
LOC: MW.ED 06:43 → MW.MS 11:59
PROVIDERS: ADMIT Family Medicine; ATTEND Family Medicine
DX: N39.0 Urinary tract infection, site not specified (principal); I48.91 Unspecified atrial fibrillation; E78.00 Pure hypercholesterolemia, unspecified; I10 Essential (primary) hypertension; M19.90 Unspecified osteoarthritis, unspecified site; E11.9 Type 2 diabetes mellitus without complications; M54.9 Dorsalgia, unspecified; G89.29 Other chronic pain; E11.40 Type 2 diabetes mellitus with diabetic neuropathy, unspecified; F41.9 Anxiety disorder, unspecified; Z96.659 Presence of unspecified artificial knee joint; D63.1 Anemia in chronic kidney disease; Z88.8 Allergy status to other drugs, medicaments and biological substances; N18.9 Chronic kidney disease, unspecified; I12.9 Hypertensive chronic kidney disease with stage 1 through stage 4 chronic kidney disease, or unspecified chronic kidney disease; E11.22 Type 2 diabetes mellitus with diabetic chronic kidney disease; E86.0 Dehydration; Z66 Do not resuscitate; I08.1 Rheumatic disorders of both mitral and tricuspid valves; D72.829 Elevated white blood cell count, unspecified; Z79.01 Long term (current) use of anticoagulants; Z88.5 Allergy status to narcotic agent; Z91.048 Other nonmedicinal substance allergy status; Z79.84 Long term (current) use of oral hypoglycemic drugs; Z79.899 Other long term (current) drug therapy; Z90.89 Acquired absence of other organs; Z98.49 Cataract extraction status, unspecified eye; Z90.49 Acquired absence of other specified parts of digestive tract; Z90.710 Acquired absence of both cervix and uterus; Z90.722 Acquired absence of ovaries, bilateral; Z90.79 Acquired absence of other genital organ(s); Z98.51 Tubal ligation status
CPT/HCPCS: 0241U; 36415; 51701; 51798; 71045; 80053; 81001; 82550; 82947; 83605; 83735; 83880; 84100; 84443; 84484; 85025; 87086; 93005; 93306; 96365; 96366; 96367; 96375; 97161; 97530; 99285; 87088; 87186; 93010; A9270-GY; J0696; J1815-GY; J1940; J3475; J3490; J7030; J7040

== ENCOUNTER 2024-11-16 09:17 | Emergency (ER) | payer MEDICARE, BC ==
[2024-11-16 10:15] VITALS: BP 177/77; PULSE 79
== END 2024-11-16 12:43 | disposition home or self-care (01) ==
LOC: MW.ED 09:17
DX: S76.012A Strain of muscle, fascia and tendon of left hip, initial encounter (principal); S86.912A Strain of unspecified muscle(s) and tendon(s) at lower leg level, left leg, initial encounter; E78.00 Pure hypercholesterolemia, unspecified; I48.91 Unspecified atrial fibrillation; I10 Essential (primary) hypertension; E11.9 Type 2 diabetes mellitus without complications; Z90.49 Acquired absence of other specified parts of digestive tract; Z75.3 Unavailability and inaccessibility of health-care facilities; Z88.5 Allergy status to narcotic agent; Z88.6 Allergy status to analgesic agent; Z79.84 Long term (current) use of oral hypoglycemic drugs; Z79.899 Other long term (current) drug therapy; W18.39XA Other fall on same level, initial encounter; Y93.89 Activity, other specified
CPT/HCPCS: 73502; 73562; 73590; 99283; A9270